=== PATIENT | female | born 2000 | race Caucasian/White ===

== ENCOUNTER 2020-12-21 17:22 | Emergency (ER) | payer OTHER, SELFPAY ==
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
[2020-12-21 17:43] VITALS: BP 137/76; PULSE 76; RESP 18; TEMP 36.9; O2SAT 98; BMI 32.3
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
--- NOTE | 2020-12-21 18:33 | PC.NURSE ---
SECURITY STATES THEY SPOKE TO [employer] AND THEY WILL NOT COME HER FOR INTERVIEW. PATIENT HAS TO GO TO [facility] DEPARTMENT TO FILE REPORT. ANGEL BANUELOS.
== END 2020-12-21 19:26 | disposition home or self-care (01) ==
PROVIDERS: Emergency Provider Emergency Medicine; PCP Internal Medicine
DX: S10.91XA Abrasion of unspecified part of neck, initial encounter (principal); Y04.8XXA Assault by other bodily force, initial encounter; Y93.9 Activity, unspecified; Y92.9 Unspecified place or not applicable; Y99.9 Unspecified external cause status
CPT/HCPCS: 70360; 99283; 99284

== ENCOUNTER 2020-12-22 11:16 | Emergency (ER) | payer OTHER, SELFPAY ==
[2020-12-22 11:32] VITALS: BP 119/71; PULSE 79; RESP 16; TEMP 37.2; O2SAT 98; BMI 32.3
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
== END 2020-12-22 13:10 | disposition home or self-care (01) ==
PROVIDERS: Emergency Provider Emergency Medicine; PCP Internal Medicine
DX: M54.2 Cervicalgia (principal)
CPT/HCPCS: 99283

== ENCOUNTER 2021-02-23 10:39 | Emergency (ER) | payer OTHER, SELFPAY ==
--- NOTE | 2021-02-23 | ECG_ITS ---
Test Reason : CHESTPAIN Blood Pressure : / mmHG Vent. Rate : 071 BPM Atrial Rate : 071 BPM P-R Int : 134 ms QRS Dur : 086 ms QT Int : 380 ms P-R-T Axes : 036 031 023 degrees QTc Int : 412 ms Normal sinus rhythm with sinus arrhythmia Normal ECG No previous ECGs available Referred By: Generic ED Physician Electronically Signed By:EVIE LERMA
--- NOTE | ~2021-02-23 | XR_ITS ---
EXAMINATION: XR CHEST CLINICAL INFORMATION: Chest pain. COMPARISON: None TECHNIQUE: Frontal view of the chest was obtained. FINDINGS: Both lungs are fairly well-expanded and clear. The heart size and pulmonary vascularity is normal. No gross bony abnormality seen. XR/XR chest 1V IMPRESSION: Unremarkable chest exam.
[2021-02-23 10:47] VITALS: BP 128/76; PULSE 95; RESP 16; TEMP 37.1; O2SAT 98; BMI 34.7
--- NOTE | 2021-02-23 11:20 | ED.CHESTPAIN ---
HPI - Chest Pain General Chief Complaint: Chest Pain Stated Complaint: chest pain Time Seen by Provider: 02/23/21 11:17 Source: patient Mode of arrival: ambulatory Limitations: no limitations History of Present Illness HPI narrative: 20-year-old female came in for evaluation of left-sided chest pain for 3 days. Pain is localized to the mid chest area and radiates to the left shoulder, pain described as dull aching pain, tender to touch, pain was described as intermittent comes and goes, pain is not exertional, nothing makes the pain worse or make it better, never had chest pain in the past, no recent travel or prolonged immobilization, no calf tenderness or swelling. No family history of PE/Chanelle high at young age. Related Data Previous Rx's Medication Instructions Recorded acetaminophen 500 mg tablet 500 mg PO Q6H PRN #20 tab 12/22/20 (Tylenol Extra Strength) cyclobenzaprine 5 mg tablet 5 mg PO Q8H PRN 5 Days #14 tab 12/22/20 lidocaine 5 % topical patch 1 patch TOPICAL DAILY PRN #30 ea 12/22/20 (Lidoderm) MDD remove after 12 hours naproxen 500 mg tablet 500 mg PO BID PRN 10 Days #20 tab 12/22/20 Allergies Allergy/AdvReac Type Severity Reaction Status Date / Time No Known Allergies Allergy Verified 12/21/20 18:30 Review of Systems Review of Systems: All other systems are reviewed and are negative Constitutional: Reports as per HPI and Reports no additional constitutional complaints Eyes: Reports as per HPI and Reports no additional eye complaints Reports system reviewed and no additional complaints, except as documented Cardiovascular: Reports as per HPI and Reports no additional cardiovascular complaints Respiratory: Reports as per HPI and Reports no additional respiratory complaints Gastrointestinal: Reports as per HPI and Reports no additional gastrointestinal complaints Genitourinary: Reports no additional female genitourinary complaints Musculoskeletal: Reports no additional musculoskeletal complaints Skin/Breast: Reports system reviewed and no additional complaints, except as docu Psychiatric: Reports no additional psychiatric complaints Endocrine: Reports no additional endocrine complaints Hematologic/Lymphatic: Reports no additional hematologic/lymphatic complaints Allergic/Immunologic: Reports no additional allergic/immunologic complaints Reports system reviewed and no additional complaints, except as documented and Reports Abnormal speech present PMFSH Past Medical History Medical History No known health problems Surgical History H/O dilation and curettage H/O knee surgery Social History Social History Advance Directives: No Advance Directives Information Provided: No Physical Exam Vital Signs: Vital Signs: Last Vital Signs Temp 97.7 F 02/23/21 13:22 Pulse 63 02/23/21 13:22 Resp 16 02/23/21 13:22 BP 115/54 L 02/23/21 13:22 Pulse Ox 99 02/23/21 13:22 Body Mass Index 34.7 Vital signs have been reviewed as appeared to be correct. Blood pressure normal. Heart rate normal. Respiration rate normal. Temperature normal. Oxygen saturation normal. Appearance: Alert. Oriented X3. No acute distress. Head: Normal external exam. Normocephalic. Atraumatic. No Lomax signs noted. No raccoon eyes noted Eyes: PERRLA. EOMI. Conjunctiva and sclera normal. Eyelids normal. ENT: TM's Normal. Pharynx normal. Uvula midline. Moist mucous membranes. No trismus noted. No drooling noted. No muffled voice noted. Neck: Normal inspection. Neck supple. FROM. No adenopathy. Thyroid Normal. No meningeal signs. No neck mass noted. CVS: Normal heart rate and rhythm. Heart sound normal. No murmurs noted. Pulses normal throughout. Respiratory: No respiratory distress. Painless inspiration. Breath sounds normal. No wheezes/rales/rhonchi noted. Chest nontender. No accessory muscle usage noted or decreased air movement noted. Abdomen: Soft and nontender. Bowel sounds normal in all 4 quadrants. No distention noted. No organomegaly noted. No visible injury noted. Back: No CVA tenderness. Full range of motion noted. Skin: Skin warm and dry. Normal skin color. Normal skin turgor. No rashes/lesions/lacerations noted. Extremities: No lower extremity edema. Extremities exhibit normal range of motion. Extremities nontender. Neuro: Oriented X 3. Cranial nerve exam: II-XII are grossly intact No motor deficit. No sensory deficit. Reflexes normal. Course Course Course Narrative: Assessment and plan. 20-year-old female came in for evaluation of chest pain, patient with HEART SCORE OF 0. LOW RISK FACTOR FOR PE with negative D-dimer MDM - Chest Pain Lab Data Attestation: I reviewed the patient's lab results. Result diagrams: 02/23/21 11:40 02/23/21 11:40 Labs: Lab Results 02/23/21 02/23/21 02/23/21 Range/Units 11:40 11:40 11:40 WBC 8.4 (4.8-10.8) X10*3/uL RBC 5.03 (4.20-5.50) X10*6/uL Hgb 13.9 (12.0-16.0) g/dl Hct 43.0 (37-47) % MCV 85.5 (80-98) fL MCH 27.6 (27.0-33.0) pg MCHC 32.3 (31.0-35.0) g/dl RDW 13.3 (11.0-16.0) % Plt Count 243 (160-400) X10*3/uL MPV 11.4 (9.4-12.3) fL Immature Gran % (Auto) 0.4 (0.0-0.4) % Neut % (Auto) 65.4 (45-73) % Lymph % (Auto) 23.8 (20-40) % Dougherty % (Auto) 6.7 (2-11) % Eos % (Auto) 2.9 (0-4) % Baso % (Auto) 0.8 (0-2) % Lymph # (Auto) 2.0 (1.2-4.9) X10*3/uL Dougherty # (Auto) 0.6 (0.1-1.2) X10*3/uL Eos # (Auto) 0.2 (0.0-0.4) X10*3/uL Baso # (Auto) 0.1 (0.0-0.2) X10*3/uL Abs Immat Gran (auto) 0.03 (0.00-0.03) X10*3/uL Absolute Neuts (auto) 5.5 (2.0-8.3) X10*3/uL Absolute Nucleated RBC 0.000 (0.0-0.012) X10*3/uL Nucleated RBC % (auto) 0.0 (0.0-0.2) /100WBC Smear Tech's Comments VERIFIED D-Dimer < 200 NG/ML Sodium 139 (135-145) mmol/L Potassium 4.7 (3.3-5.1) mmol/L Chloride 107 (96-108) mmol/L Carbon Dioxide 23 (22-29) mmol/L Anion Gap 14 (12-20) BUN 15 (9-16) mg/dL Creatinine 0.75 (0.5-1.4) mg/dL Estim Creat Clear Calc 138.5 Estimated GFR > 60 Random Glucose 91 (60-115) mg/dL Calcium 9.5 (8.4-10.2) mg/dL Troponin I High Sens (<3.5-17.0) ng/L Lipase 34 (8-78) U/L Urine Color Urine Appearance Urine pH (5.0-8.0) Ur Specific Epsom (1.005-1.025) Urine Protein (NEG-TRACE) MG/DL Urine Glucose (UA) (NEG) MG/DL Urine Ketones (NEG) MG/DL Urine Blood (NEG) Urine Nitrite (NEG) Ur Leukocyte Esterase (NEG) 02/23/21 02/23/21 Range/Units 11:40 11:47 WBC (4.8-10.8) X10*3/uL RBC (4.20-5.50) X10*6/uL Hgb (12.0-16.0) g/dl Hct (37-47) % MCV (80-98) fL MCH (27.0-33.0) pg MCHC (31.0-35.0) g/dl RDW (11.0-16.0) % Plt Count (160-400) X10*3/uL MPV (9.4-12.3) fL Immature Gran % (Auto) (0.0-0.4) % Neut % (Auto) (45-73) % Lymph % (Auto) (20-40) % Dougherty % (Auto) (2-11) % Eos % (Auto) (0-4) % Baso % (Auto) (0-2) % Lymph # (Auto) (1.2-4.9) X10*3/uL Dougherty # (Auto) (0.1-1.2) X10*3/uL Eos # (Auto) (0.0-0.4) X10*3/uL Baso # (Auto) (0.0-0.2) X10*3/uL Abs Immat Gran (auto) (0.00-0.03) X10*3/uL Absolute Neuts (auto) (2.0-8.3) X10*3/uL Absolute Nucleated RBC (0.0-0.012) X10*3/uL Nucleated RBC % (auto) (0.0-0.2) /100WBC Smear Tech's Comments D-Dimer NG/ML Sodium (135-145) mmol/L Potassium (3.3-5.1) mmol/L Chloride (96-108) mmol/L Carbon Dioxide (22-29) mmol/L Anion Gap (12-20) BUN (9-16) mg/dL Creatinine (0.5-1.4) mg/dL Estim Creat Clear Calc Estimated GFR Random Glucose (60-115) mg/dL Calcium (8.4-10.2) mg/dL Troponin I High Sens < 3.5 (<3.5-17.0) ng/L Lipase (8-78) U/L Urine Color YELLOW Urine Appearance CLEAR Urine pH 6.0 (5.0-8.0) Ur Specific Epsom 1.025 (1.005-1.025) Urine Protein NEG (NEG-TRACE) MG/DL Urine Glucose (UA) NEG (NEG) MG/DL Urine Ketones NEG (NEG) MG/DL Urine Blood NEG (NEG) Urine Nitrite NEG (NEG) Ur Leukocyte Esterase NEG (NEG) Imaging Data Chest x-ray: Radiologist's impression: Unremarkable chest x-ray. ECG Data ECG #1: Interpretation: Normal sinus rhythm at 71 beats per minutes, normal axis deviation, normal intervals, no ST-T changes. Discharge Plan Discharge Clinical Impression: Chest pain Patient Disposition: Home, Self-Care Instructions: Chest Pain (ED) Prescriptions: No Action acetaminophen [Tylenol Extra Strength] 500 mg tablet 500 mg PO Q6H PRN (Reason: pain or fever) Qty: 20 RF: 0 lidocaine [Lidoderm] 5 % adhesive patch,medicated 1 patch topical DAILY MDD remove after 12 hours PRN (Reason: pain) Qty: 30 RF: 0 naproxen 500 mg tablet 500 mg PO BID PRN (Reason: pain) 10 Days Qty: 20 RF: 0 cyclobenzaprine 5 mg tablet 5 mg PO Q8H PRN (Reason: pain (scale score 7-10)) 5 Days Qty: 14 RF: 0 Referrals: Micaela Carreon MD [Primary Care Provider] - 2 days
[2021-02-23 11:46] LABS: Eosinophils Absolute Auto 0.2 X10*3/uL (0.0-0.4); Imm Gran Abs Auto 0.03 X10*3/uL (0.00-0.03); Imm Gran Pct Auto 0.4 % (0.0-0.4); MANUAL DIFF FLAG SCAN; Mean Corpuscular Volume 85.5 fL (80-98); PLT CLUMP 1; SCAN SMEAR FLAG 1
[2021-02-23 11:48] VITALS: BP 125/66; PULSE 71; RESP 20; TEMP 37.3; O2SAT 98
[2021-02-23 11:48] LABS: Basophils Absolute Auto 0.1 X10*3/uL (0.0-0.2); Basophils Percent Auto 0.8 % (0-2); Eosinophils Percent Auto 2.9 % (0-4); Hemoglobin 13.9 g/dl (12.0-16.0); Lymphocytes Percent Auto 23.8 % (20-40); Mean Corpuscular HGB Conc 32.3 g/dl (31.0-35.0); Mean Corpuscular Hemoglobin 27.6 pg (27.0-33.0); Mean Platelet Volume 11.4 fL (9.4-12.3); Monocytes Absolute Auto 0.6 X10*3/uL (0.1-1.2); Monocytes Percent Auto 6.7 % (2-11); Neutrophils Absolute Auto 5.5 X10*3/uL (2.0-8.3); Neutrophils Percent Auto 65.4 % (45-73); Platelet Count 243 X10*3/uL (160-400); Red Blood Count 5.03 X10*6/uL (4.20-5.50); Red Cell Distribution Width 13.3 % (11.0-16.0); White Blood Count 8.4 X10*3/uL (4.8-10.8)
[2021-02-23 11:56] LABS: D Dimer < 200 NG/ML
[2021-02-23 11:59] LABS: Glucose Urine UA NEG (NEG); Leukocyte Esterase Urine NEG (NEG); Nitrite Urine NEG (NEG); Specific Gravity - Urine 1.025 (1.005-1.025); Urine Blood NEG (NEG); Urine Ketones NEG (NEG); Urine Protein NEG (NEG-TRACE)
[2021-02-23 12:00] LABS: Appearance Urine CLEAR; Color Urine YELLOW
[2021-02-23 12:26] LABS: SLIDE REVIEW VERIFIED
[2021-02-23 12:33] LABS: Anion Gap 14 (12-20); Blood Urea Nitrogen 15 mg/dL (9-16); Calcium 9.5 mg/dL (8.4-10.2); Carbon Dioxide 23 mmol/L (22-29); Chloride 107 mmol/L (96-108); Creatinine Clr Calc Pharmacy 138.5; Estimated Glomerular Filt Rate > 60; Glucose Random 91 mg/dL (60-115); Lipase 34 U/L (8-78); Potassium 4.7 mmol/L (3.3-5.1); Sodium 139 mmol/L (135-145)
[2021-02-23 12:38] LABS: Troponin-I High Sensitivity < 3.5 ng/L (<3.5-17.0)
[2021-02-23 13:22] VITALS: BP 115/54; PULSE 63; RESP 16; TEMP 36.5; O2SAT 99
[2021-02-23 15:56] VITALS: BP 124/60; PULSE 58; RESP 16; O2SAT 98
== END 2021-02-23 16:03 | disposition home or self-care (01) ==
PROVIDERS: Emergency Provider Emergency Medicine; PCP Internal Medicine
DX: R07.9 Chest pain, unspecified (principal); Z79.899 Other long term (current) drug therapy
CPT/HCPCS: 36415; 71045; 80048; 81003; 83690; 84484; 85025; 85379; 93005; 99283; 99284

== ENCOUNTER 2021-07-30 22:18 | Emergency (ER) | payer OTHER, SELFPAY ==
--- NOTE | ~2021-07-30 | CT_ITS ---
EXAMINATION: CT HEAD WITHOUT CONTRAST CLINICAL INFORMATION: Headache for one month COMPARISON: 09/25/2016 TECHNIQUE: Contiguous axial imaging was performed from the skull base to vertex without intravenous contrast. This CT examination was performed using dose optimization techniques as appropriate, variously including the following: * Automated exposure control * Adjustment of mA and/or kV according to patient size (this includes techniques or standardized protocols for targeted exams where dose is matched to indication/reason for exam; i.e. extremities or head) Use of iterative reconstruction technique DLP: 717 mGy-cm. FINDINGS: There is no evidence of acute intracranial hemorrhage or territorial infarction. No abnormal mass effect or midline shift is seen. Denis to white matter differentiation is well preserved. No extra-axial fluid collections are identified. No hydrocephalus. No significant volume loss. There is no abnormal attenuation within the brain parenchyma. The osseous structures and soft tissues are normal. The mastoid air cells and visualized portions of the paranasal sinuses are well aerated. CT/CT head/brain wo con IMPRESSION: No acute intracranial pathology.
[2021-07-30 22:19] VITALS: BP 121/71; PULSE 76; RESP 16; TEMP 36.4; O2SAT 97; BMI 35.5
--- NOTE | 2021-07-30 22:30 | ED_ITS ---
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 MD elicited complaint: other (headaches, palpitations, upper abdominal disco mfort) Onset (ago): month(s) (1) Timing: gradual onset and intermittent Severity: moderate Description: lightheadedness Context: at rest History of similar symptoms: Yes (had chest pain in the past told it was anxiety) Exacerbating factors: nothing Relieving factors: nothing Associated symptoms: weakness and palpatations Related Data Previous Rx's Medication Instructions Recorded acetaminophen 500 mg tablet 500 mg PO Q6H PRN #20 tab 12/22/20 (Tylenol Extra Strength) cyclobenzaprine 5 mg tablet 5 mg PO Q8H PRN 5 Days #14 tab 12/22/20 lidocaine 5 % topical patch 1 patch TOPICAL DAILY PRN #30 ea 12/22/20 (Lidoderm) MDD remove after 12 hours naproxen 500 mg tablet 500 mg PO BID PRN 10 Days #20 tab 12/22/20 cyclobenzaprine 10 mg tablet 10 mg PO TID PRN #14 tab 07/31/21 ondansetron 4 mg disintegrating 4 mg PO Q8H PRN #20 tab 07/31/21 tablet Allergies Allergy/AdvReac Type Severity Reaction Status Date / Time No Known Allergies Allergy Verified 07/30/21 22:27 Review of Systems Verdana 4l Review of Systems: Verdana 4d Verdana 4d Constitutional : No Weight loss, No Fever, No Chills, pos Fatigue, pos Malaise ENT/Mouth : No sore throat, No Rhinorrhea Eyes: No Eye Pain, No Swelling, No Redness Cardiovascular : No Chest Pain, No SOB, No Dyspnea on Exertion, No OrthopneaOrthopnea, No Edema, pos Palpitations Respiratory : No Cough, No Sputum, No Wheezing Gastrointestinal : pos Nausea, No Vomiting, No Diarrhea, No Constipation, pos abdominal Pain, No Hematochezia, No Melena Genitourinary : No Dysuria, No Urinary Frequency, No Hematuria, Musculoskeletal : No joint pain, No Myalgias, No Joint Swelling Skin : No Skin Lesions, No rash Neuro : No Weakness, No Numbness, No Dizziness, pos Headache Psych : No Anxiety/Panic, No Depression Heme/Lymph: No Bruising, No Bleeding,No Lymphadenopathy Endocrine : No Polyuria, No Polydipsia All other systems reviewed and are negative [facility] Past Medical History Medical History No known health problems PCOS (polycystic ovarian syndrome) Surgical History H/O dilation and curettage H/O knee surgery Social History Social History (Updated 07/30/21 @ 22:49 by Katherine Pascal DO) Frequency of e-Cigarette/Vaping Use: occasional vaping Advance Directives: No Advance Directives Information Provided: Yes Physical Exam Verdana 4l Vital Signs: Verdana 4d Verdana 4d Vital Signs: Verdana 4d Verdana 4Bd Last Vital Signs Verdana 4d Pet Handler New 4d Pet Handler New 4d Temp 97.6 F 07/30/21 22:19 Pet Handler New 4d Pulse 69 07/31/21 00:42 Pet Handler New 4d Resp 17 07/31/21 00:42 BP 118/65 07/31/21 00:42 Pulse Ox 99 07/31/21 00:42 BMI result Body Mass Index 35.5 Appearance: Alert. Oriented X3. No acute distress. Eyes: Pupils equal, round and reactive to light. ENT: Pharynx normal. Neck: Normal inspection. Neck supple. CVS: Normal heart rate and rhythm. Pulses normal. Respiratory: No respiratory distress. Breath sounds normal. Abdomen: Soft and non-tender. Skin: Skin warm and dry. Normal skin color. Normal skin turgor. Extremities: No lower extremity edema. No calf ttp Neuro: Oriented X 3. No motor deficit. No sensory deficit. Course Course Course Narrative: negative workup stable for DC MDM - Dizziness MDM Narrative Medical decision making narrative: 20 yo female with hx of anxiety and PCOS not on OCPs comes in with 1 month of palpitations, headaches, some upper abdominal discomfort - at this time could be related to stress from school will need labs, TSH, EKG, CT head for mass, PO medications for likely tension headache. Doubt ACS/PE. Dispo per results and findings. Lab Data Result diagrams: 07/30/21 22:58 07/30/21 22:58 Labs: Lab Results 07/30/21 07/30/21 07/30/21 Range/Units 22:53 22:58 22:58 WBC 9.8 (4.8-10.8) X10*3/uL RBC 4.99 (4.20-5.50) X10*6/uL Hgb 13.7 (12.0-16.0) g/dl Hct 42.6 (37.0-47.0) % MCV 85.4 (80.0-98.0) fL MCH 27.5 (27.0-33.0) pg MCHC 32.2 (31.0-35.0) g/dl RDW 12.6 (11.0-16.0) % Plt Count 271 (160-400) X10*3/uL MPV 11.7 (9.4-12.3) fL Immature Gran % (Auto) 0.3 (0.0-0.4) % Neut % (Auto) 60.8 (45-73) % Lymph % (Auto) 27.0 (20-40) % [place] % (Auto) 8.3 (2-11) % Eos % (Auto) 3.0 (0-4) % Baso % (Auto) 0.6 (0-2) % Lymph # (Auto) 2.6 (1.2-4.9) X10*3/uL [place] # (Auto) 0.8 (0.1-1.2) X10*3/uL Eos # (Auto) 0.3 (0.0-0.4) X10*3/uL Baso # (Auto) 0.1 (0.0-0.2) X10*3/uL Abs Immat Gran (auto) 0.03 (0.00-0.03) X10*3/uL Absolute Neuts (auto) 5.9 (2.0-8.3) x10*3/uL Absolute Nucleated RBC 0.000 (0.0-0.012) X10*3/uL Nucleated RBC % (auto) 0.0 (0.0-0.2) /100WBC Sodium 139 (135-145) mmol/L Potassium 4.4 (3.3-5.1) mmol/L Chloride 105 (96-108) mmol/L Carbon Dioxide 24 (22-29) mmol/L Anion Gap 14 (12-20) BUN 17 H (9-16) mg/dL Creatinine 0.79 (0.5-1.4) mg/dL Estim Creat Clear Calc 133.1 Estimated GFR > 60 Random Glucose 84 (60-115) mg/dL Calcium 9.8 (8.4-10.2) mg/dL Magnesium 2.0 (1.6-2.6) mg/dL Total Bilirubin 0.6 (0.0-1.0) mg/dL Direct Bilirubin 0.2 (0.0-0.5) mg/dL AST 21 (5-31) U/L ALT 23 (0-31) U/L Alkaline Phosphatase 83 (39-117) U/L Total Protein 7.5 (6.5-8.0) g/dL Albumin 4.2 (3.5-5.0) g/dL Lipase 38 (8-78) U/L TSH 1.77 (0.32-4.0) uIU/mL Urine Color Urine Appearance Urine pH (5.0-8.0) Ur Specific [place] (1.005-1.025) Urine Protein (NEG-TRACE) MG/DL Urine Glucose (UA) (NEG) MG/DL Urine Ketones (NEG) MG/DL Urine Blood (NEG) Urine Nitrite (NEG) Ur Leukocyte Esterase (NEG) Urine Test (NEGATIVE) COVID-19 (LEROY) Negative (Negative) COVID-19 Clin Com See Note 07/30/21 07/30/21 Range/Units 23:07 23:07 WBC (4.8-10.8) X10*3/uL RBC (4.20-5.50) X10*6/uL Hgb (12.0-16.0) g/dl Hct (37.0-47.0) % MCV (80.0-98.0) fL MCH (27.0-33.0) pg MCHC (31.0-35.0) g/dl RDW (11.0-16.0) % Plt Count (160-400) X10*3/uL MPV (9.4-12.3) fL Immature Gran % (Auto) (0.0-0.4) % Neut % (Auto) (45-73) % Lymph % (Auto) (20-40) % [place] % (Auto) (2-11) % Eos % (Auto) (0-4) % Baso % (Auto) (0-2) % Lymph # (Auto) (1.2-4.9) X10*3/uL [place] # (Auto) (0.1-1.2) X10*3/uL Eos # (Auto) (0.0-0.4) X10*3/uL Baso # (Auto) (0.0-0.2) X10*3/uL Abs Immat Gran (auto) (0.00-0.03) X10*3/uL Absolute Neuts (auto) (2.0-8.3) x10*3/uL Absolute Nucleated RBC (0.0-0.012) X10*3/uL Nucleated RBC % (auto) (0.0-0.2) /100WBC Sodium (135-145) mmol/L Potassium (3.3-5.1) mmol/L Chloride (96-108) mmol/L Carbon Dioxide (22-29) mmol/L Anion Gap (12-20) BUN (9-16) mg/dL Creatinine (0.5-1.4) mg/dL Estim Creat Clear Calc Estimated GFR Random Glucose (60-115) mg/dL Calcium (8.4-10.2) mg/dL Magnesium (1.6-2.6) mg/dL Total Bilirubin (0.0-1.0) mg/dL Direct Bilirubin (0.0-0.5) mg/dL AST (5-31) U/L ALT (0-31) U/L Alkaline Phosphatase (39-117) U/L Total Protein (6.5-8.0) g/dL Albumin (3.5-5.0) g/dL Lipase (8-78) U/L TSH (0.32-4.0) uIU/mL Urine Color YELLOW Urine Appearance HAZY Urine pH 6.0 (5.0-8.0) Ur Specific [place] >= 1.030 H (1.005-1.025) Urine Protein NEG (NEG-TRACE) MG/DL Urine Glucose (UA) NEG (NEG) MG/DL Urine Ketones NEG (NEG) MG/DL Urine Blood NEG (NEG) Urine Nitrite NEG (NEG) Ur Leukocyte Esterase NEG (NEG) Urine Test NEGATIVE (NEGATIVE) COVID-19 (LEROY) (Negative) COVID-19 Clin Com ECG Data Attestation: I personally reviewed and interpreted this ECG as follows: ECG interpretation date: 07/30/21 ECG interpretation time: 22:59 Interpretation: Rate: 74 Rhythm: NSR Homer: mpr,a; Normal P waves. Normal GYPSY. Normal QRS complex. ST T wave : artifact noted, no SKYE, inverted III qTC: normal prior studies: no acute ischemia The study has been interpreted contemporaneously by me. . Discharge Plan Discharge Clinical Impression: Heart palpitations Chronic tension headaches Qualifiers: Intractability: not intractable Qualified Code(s): G44.229 - Chronic tension- type headache, not intractable Patient Disposition: Home, Self-Care Instructions: Heart Palpitations (DC), Tension Headache (ED) Additional Instructions: return to ED for any worsening symptoms or concerns Prescriptions: New cyclobenzaprine 10 mg tablet 10 mg PO TID PRN (Reason: muscle spasm) Qty: 14 0RF ondansetron 4 mg tablet,disintegrating 4 mg PO Q8H PRN (Reason: nausea and vomiting) Qty: 20 0RF No Action acetaminophen [Tylenol Extra Strength] 500 mg tablet 500 mg PO Q6H PRN (Reason: pain or fever) Qty: 20 0RF lidocaine [Lidoderm] 5 % adhesive patch,medicated 1 patch topical DAILY MDD remove after 12 hours PRN (Reason: pain) Qty: 30 0RF Rx Instructions: leave on most painful area for up to 12 hrs naproxen 500 mg tablet 500 mg PO BID PRN (Reason: pain) 10 Days Qty: 20 0RF cyclobenzaprine 5 mg tablet 5 mg PO Q8H PRN (Reason: pain (scale score 7-10)) 5 Days Qty: 14 0RF Referrals: Micaela Carreon MD [Primary Care Provider] - 3 days (if not better) Stand Alone Forms: Work/School Release Interventions: ED Discharge Assessment Last Done: 07/31/21 00:51 Discharge Date/Time: 07/31/21 00:52
--- NOTE | 2021-07-30 22:39 | ECG_ITS ---
Test Reason : DIZZINESS Blood Pressure : / mmHG Vent. Rate : 074 BPM Atrial Rate : 074 BPM P-R Int : 132 ms QRS Dur : 076 ms QT Int : 372 ms P-R-T Axes : 026 014 013 degrees QTc Int : 412 ms Normal sinus rhythm Normal ECG When compared with ECG of 23-FEB-2021 10:53, No significant change was found Referred By: Katherine Pascal Electronically Signed By:
[2021-07-30] MEDS: Butalb/Acetamin/Caff 50/325/40 TABLET 1 TAB PO (22:59)
[2021-07-30] MEDS: Ondansetron ODT 4 MG TAB.RAPDIS TRANSLINGU (22:59)
[2021-07-30 23:04] LABS: MANUAL DIFF FLAG NO
[2021-07-30 23:05] LABS: Basophils Absolute Auto 0.1 X10*3/uL (0.0-0.2); Basophils Percent Auto 0.6 % (0-2); Eosinophils Absolute Auto 0.3 X10*3/uL (0.0-0.4); Hematocrit 42.6 % (37.0-47.0); Hemoglobin 13.7 g/dl (12.0-16.0); Imm Gran Abs Auto 0.03 X10*3/uL (0.00-0.03); Imm Gran Pct Auto 0.3 % (0.0-0.4); Lymphocytes Absolute Auto 2.6 X10*3/uL (1.2-4.9); Mean Corpuscular HGB Conc 32.2 g/dl (31.0-35.0); Mean Corpuscular Hemoglobin 27.5 pg (27.0-33.0); Mean Corpuscular Volume 85.4 fL (80.0-98.0); Mean Platelet Volume 11.7 fL (9.4-12.3); Monocytes Absolute Auto 0.8 X10*3/uL (0.1-1.2); Monocytes Percent Auto 8.3 % (2-11); Neutrophils Absolute Auto 5.9 x10*3/uL (2.0-8.3); Neutrophils Percent Auto 60.8 % (45-73); Platelet Count 271 X10*3/uL (160-400); Red Blood Count 4.99 X10*6/uL (4.20-5.50); Red Cell Distribution Width 12.6 % (11.0-16.0); White Blood Count 9.8 X10*3/uL (4.8-10.8)
[2021-07-30 23:19] LABS: COVID-19 Test Negative (Negative)
[2021-07-30 23:20] LABS: Alanine Aminotransferase 23 U/L (0-31); Albumin Level 4.2 g/dL (3.5-5.0); Alkaline Phosphatase 83 U/L (39-117); Anion Gap 14 (12-20); Aspartate Amino Transferase 21 U/L (5-31); Bilirubin Direct 0.2 mg/dL (0.0-0.5); Bilirubin Total 0.6 mg/dL (0.0-1.0); Blood Urea Nitrogen 17 mg/dL (9-16); Calcium 9.8 mg/dL (8.4-10.2); Carbon Dioxide 24 mmol/L (22-29); Chloride 105 mmol/L (96-108); Creatinine Clr Calc Pharmacy 133.1; Estimated Glomerular Filt Rate > 60; Glucose Random 84 mg/dL (60-115); Lipase 38 U/L (8-78); Potassium 4.4 mmol/L (3.3-5.1); Sodium 139 mmol/L (135-145); Total Protein 7.5 g/dL (6.5-8.0)
[2021-07-30 23:40] LABS: TSH reflex Free T4 1.77 uIU/mL (0.32-4.0)
[2021-07-31] LABS: Appearance Urine HAZY; Color Urine YELLOW; Glucose Urine UA NEG (NEG); Leukocyte Esterase Urine NEG (NEG); Nitrite Urine NEG (NEG); Specific Gravity - Urine >= 1.030 (1.005-1.025); Urine Blood NEG (NEG); Urine Ketones NEG (NEG); Urine Protein NEG (NEG-TRACE)
[2021-07-31 00:03] LABS: UPreg QC Valid YES; Urine Pregnancy NEGATIVE (NEGATIVE)
[2021-07-31 00:42] VITALS: BP 118/65; PULSE 69; RESP 17; O2SAT 99
== END 2021-07-31 00:52 | disposition home or self-care (01) ==
PROVIDERS: Emergency Provider Emergency Medicine; PCP Internal Medicine
DX: R00.2 Palpitations (principal); G44.229 Chronic tension-type headache, not intractable; Z20.822 Contact with and (suspected) exposure to COVID-19
CPT/HCPCS: 70450; 80048; 80076; 81003; 81025; 83690; 83735; 84443; 85025; 87635; 93005; 99284

== ENCOUNTER 2021-08-24 19:12 | Emergency (ER) | payer OTHER, SELFPAY ==
[2021-08-24 19:29] VITALS: BP 117/78; PULSE 81; RESP 18; TEMP 36.5; O2SAT 98; BMI 35.5
[2021-08-24 19:45] LABS: MANUAL DIFF FLAG NO
[2021-08-24 19:47] LABS: Basophils Absolute Auto 0.1 X10*3/uL (0.0-0.2); Basophils Percent Auto 0.7 % (0-2); Eosinophils Absolute Auto 0.2 X10*3/uL (0.0-0.4); Eosinophils Percent Auto 2.1 % (0-4); Hemoglobin 13.8 g/dl (12.0-16.0); Imm Gran Abs Auto 0.02 X10*3/uL (0.00-0.03); Imm Gran Pct Auto 0.2 % (0.0-0.4); Lymphocytes Absolute Auto 2.2 X10*3/uL (1.2-4.9); Lymphocytes Percent Auto 24.1 % (20-40); Mean Corpuscular HGB Conc 32.9 g/dl (31.0-35.0); Mean Corpuscular Hemoglobin 27.9 pg (27.0-33.0); Monocytes Absolute Auto 0.7 X10*3/uL (0.1-1.2); Monocytes Percent Auto 7.5 % (2-11); Neutrophils Absolute Auto 5.8 x10*3/uL (2.0-8.3); Neutrophils Percent Auto 65.4 % (45-73); Platelet Count 278 X10*3/uL (160-400); Red Blood Count 4.94 X10*6/uL (4.20-5.50); Red Cell Distribution Width 12.6 % (11.0-16.0); White Blood Count 8.9 X10*3/uL (4.8-10.8)
[2021-08-24 20:06] LABS: Anion Gap 16 (12-20); Blood Urea Nitrogen 16 mg/dL (9-16); Carbon Dioxide 27 mmol/L (22-29); Chloride 104 mmol/L (96-108); Creatinine Clr Calc Pharmacy 134.8; Estimated Glomerular Filt Rate > 60; Glucose Random 89 mg/dL (60-115); Potassium 4.5 mmol/L (3.3-5.1); Sodium 142 mmol/L (135-145)
[2021-08-24 20:17] LABS: Appearance Urine CLEAR; Color Urine YELLOW; Glucose Urine UA NEG (NEG); Leukocyte Esterase Urine NEG (NEG); Nitrite Urine NEG (NEG); PH 6.5 (5.0-8.0); Specific Gravity - Urine 1.025 (1.005-1.025); Urine Blood NEG (NEG); Urine Ketones NEG (NEG); Urine Protein NEG (NEG-TRACE)
--- NOTE | 2021-08-24 20:39 | ED.GENADULT ---
HPI - General Adult General Chief complaint: General Medical Stated complaint: blood in stool Time Seen by Provider: 08/24/21 20:38 Source: patient Mode of arrival: ambulatory Limitations: no limitations History of Present Illness HPI narrative: 20-year-old female no known medical history presents to the emergency department with complaints of abdominal discomfort, and bright red blood in the toilet and on the toilet paper since 5:30 today. She says she no longer has the abdominal pain, however she is very concerned about the blood she saw in the toilet and on her toilet paper. She says this has happened before. She reports alternating diarrhea and constipation. History of hemorrhoids. Never had a colonoscopy. She denies fevers, chills, abdominal pain, nausea, vomiting, shortness of breath chest pain, headache, dizziness weakness. Onset (ago): hour(s) (4) Relieving factors: none Exacerbating factors: none Treatments prior to arrival: none Related Data Previous Rx's Medication Instructions Recorded acetaminophen 500 mg tablet 500 mg PO Q6H PRN #20 tab 12/22/20 (Tylenol Extra Strength) cyclobenzaprine 5 mg tablet 5 mg PO Q8H PRN 5 Days #14 tab 12/22/20 lidocaine 5 % topical patch 1 patch TOPICAL DAILY PRN #30 ea 12/22/20 (Lidoderm) MDD remove after 12 hours naproxen 500 mg tablet 500 mg PO BID PRN 10 Days #20 tab 12/22/20 cyclobenzaprine 10 mg tablet 10 mg PO TID PRN #14 tab 07/31/21 ondansetron 4 mg disintegrating 4 mg PO Q8H PRN #20 tab 07/31/21 tablet pramoxine 1 % topical foam 1 appl [place] BID #15 g 08/24/21 (Proctofoam) Allergies Allergy/AdvReac Type Severity Reaction Status Date / Time No Known Allergies Allergy Verified 08/24/21 19:29 Review of Systems Review of Systems: Constitutional : No Weight loss, No Fever, No Chills, No Fatigue, No Malaise ENT/Mouth : No sore throat, No Rhinorrhea Eyes: No Eye Pain, No Swelling, No Redness Cardiovascular : No Chest Pain, No SOB, No Dyspnea on Exertion, No Orthopnea, No Edema, No Palpitations Respiratory : No Cough, No Sputum, No Wheezing Gastrointestinal : No Nausea, No Vomiting, No Diarrhea, No Constipation, No abdominal Pain, No Hematochezia, No Melena Genitourinary : No Dysuria, No Urinary Frequency, No Hematuria, + rectal bleeding Musculoskeletal : No joint pain, No Myalgias, No Joint Swelling Skin : No Skin Lesions, No rash Neuro : No Weakness, No Numbness, No Dizziness, No Headache Psych : No Anxiety/Panic, No Depression All other systems reviewed and are negative Yes all other systems are reviewed and are negative [facility] Past Medical History Attestation statement: The following information was validated with the patient. Source: old records reviewed and nursing notes reviewed Medical History No known health problems PCOS (polycystic ovarian syndrome) Surgical History H/O dilation and curettage H/O knee surgery Social History Social History Advance Directives: No Advance Directives Information Provided: No Patient : No Physical Exam ED Vital Signs: Vital Signs - 24 hr 08/24/21 19:29 Temperature 97.7 F Pulse Rate 81 Respiratory Rate 18 Blood Pressure 117/78 Pulse Oximetry 98 BMI result Body Mass Index 35.5 VSS Appearance: Alert.? Oriented X3.? No acute distress.? Head: Normocephalic, atraumatic, no step-offs or deformities Eyes: Pupils equal, round and reactive to light.? ENT: Pharynx normal.? Neck: Normal inspection.? Neck supple.? CVS: Normal heart rate and rhythm.? Pulses normal.? Respiratory: No respiratory distress.? Breath sounds normal.? Abdomen: Soft and nontender.? Skin: Skin warm and dry.? Normal skin color.? Normal skin turgor.? Sensative exam: + external non strangulated hemorrhoids Extremities: No lower extremity edema.? No calf ttp. 5/5 strength to bilateral upper and lower extremities Back: No midline tenderness, no C-spine tenderness, full range of motion, no CVA tenderness bilaterally Neuro: Oriented X 3.? No motor deficit.? No sensory deficit. CN 2-12 intact Course Reevaluation(s) Reevaluation #1: CBC within normal limits, H&H stable. Chemistry with no acute electrolyte abnormalities. OBS negative. Urine clean. Urine negative. Patient is not having tenderness to palpation to abdomen no need for CT at this time. Time: 21:21 Reevaluation #2: I will have patient follow-up with GI outpatient. Advised her to return with new or worsening symptoms. Comfortable discharge home she will be sent home on Proctofoam. Worrisome signs and symptoms outlined on her discharge. Time: 21:54 Medical Decision Making [facility] Narrative Medical decision making narrative: 2059 20 yo f present with one episode of blood in stool and in toilet at 5:30 today, tells me she has abdominal discomfort daily. Not reporting abdominal pain now. PE significant for an external hemorrhoid, nonthrombosed, non incarcerated, non bleeding. Internal exam without lumps or masses, no internal hemorrhoids. Chaperoned by Miguelina. Plan- obs, labs, urine No abdominal tenderness no need for scan at this time. Very low suspicion for IBS. Medical Records Medical records reviewed: Yes I reviewed the patient's medical records. Lab Data Lab results reviewed: Yes I reviewed the patient's lab results. Result diagrams: 08/24/21 19:41 08/24/21 19:41 Labs: Lab Results 08/24/21 08/24/21 08/24/21 Range/Units 19:41 19:41 20:11 WBC 8.9 (4.8-10.8) X10*3/uL RBC 4.94 (4.20-5.50) X10*6/uL Hgb 13.8 (12.0-16.0) g/dl Hct 42.0 (37.0-47.0) % MCV 85.0 (80.0-98.0) fL MCH 27.9 (27.0-33.0) pg MCHC 32.9 (31.0-35.0) g/dl RDW 12.6 (11.0-16.0) % Plt Count 278 (160-400) X10*3/uL MPV 11.0 (9.4-12.3) fL Immature Gran % (Auto) 0.2 (0.0-0.4) % Neut % (Auto) 65.4 (45-73) % Lymph % (Auto) 24.1 (20-40) % [place] % (Auto) 7.5 (2-11) % Eos % (Auto) 2.1 (0-4) % Baso % (Auto) 0.7 (0-2) % Lymph # (Auto) 2.2 (1.2-4.9) X10*3/uL [place] # (Auto) 0.7 (0.1-1.2) X10*3/uL Eos # (Auto) 0.2 (0.0-0.4) X10*3/uL Baso # (Auto) 0.1 (0.0-0.2) X10*3/uL Abs Immat Gran (auto) 0.02 (0.00-0.03) X10*3/uL Absolute Neuts (auto) 5.8 (2.0-8.3) x10*3/uL Absolute Nucleated RBC 0.000 (0.0-0.012) X10*3/uL Nucleated RBC % (auto) 0.0 (0.0-0.2) /100WBC Sodium 142 (135-145) mmol/L Potassium 4.5 (3.3-5.1) mmol/L Chloride 104 (96-108) mmol/L Carbon Dioxide 27 (22-29) mmol/L Anion Gap 16 (12-20) BUN 16 (9-16) mg/dL Creatinine 0.78 (0.5-1.4) mg/dL Estim Creat Clear Calc 134.8 Estimated GFR > 60 Random Glucose 89 (60-115) mg/dL Calcium 10.0 (8.4-10.2) mg/dL Urine Color YELLOW Urine Appearance CLEAR Urine pH 6.5 (5.0-8.0) Ur Specific [place] 1.025 (1.005-1.025) Urine Protein NEG (NEG-TRACE) MG/DL Urine Glucose (UA) NEG (NEG) MG/DL Urine Ketones NEG (NEG) MG/DL Urine Blood NEG (NEG) Urine Nitrite NEG (NEG) Ur Leukocyte Esterase NEG (NEG) Urine Test (NEGATIVE) Stool Occult Blood (NEGATIVE) 08/24/21 08/24/21 Range/Units 20:11 21:14 WBC (4.8-10.8) X10*3/uL RBC (4.20-5.50) X10*6/uL Hgb (12.0-16.0) g/dl Hct (37.0-47.0) % MCV (80.0-98.0) fL MCH (27.0-33.0) pg MCHC (31.0-35.0) g/dl RDW (11.0-16.0) % Plt Count (160-400) X10*3/uL MPV (9.4-12.3) fL Immature Gran % (Auto) (0.0-0.4) % Neut % (Auto) (45-73) % Lymph % (Auto) (20-40) % [place] % (Auto) (2-11) % Eos % (Auto) (0-4) % Baso % (Auto) (0-2) % Lymph # (Auto) (1.2-4.9) X10*3/uL [place] # (Auto) (0.1-1.2) X10*3/uL Eos # (Auto) (0.0-0.4) X10*3/uL Baso # (Auto) (0.0-0.2) X10*3/uL Abs Immat Gran (auto) (0.00-0.03) X10*3/uL Absolute Neuts (auto) (2.0-8.3) x10*3/uL Absolute Nucleated RBC (0.0-0.012) X10*3/uL Nucleated RBC % (auto) (0.0-0.2) /100WBC Sodium (135-145) mmol/L Potassium (3.3-5.1) mmol/L Chloride (96-108) mmol/L Carbon Dioxide (22-29) mmol/L Anion Gap (12-20) BUN (9-16) mg/dL Creatinine (0.5-1.4) mg/dL Estim Creat Clear Calc Estimated GFR Random Glucose (60-115) mg/dL Calcium (8.4-10.2) mg/dL Urine Color Urine Appearance Urine pH (5.0-8.0) Ur Specific [place] (1.005-1.025) Urine Protein (NEG-TRACE) MG/DL Urine Glucose (UA) (NEG) MG/DL Urine Ketones (NEG) MG/DL Urine Blood (NEG) Urine Nitrite (NEG) Ur Leukocyte Esterase (NEG) Urine Test NEGATIVE (NEGATIVE) Stool Occult Blood NEGATIVE (NEGATIVE) Critical Care Time Critical Care Time Critical Care Time: No Discharge Plan Discharge Clinical Impression: Rectal bleed, Hemorrhoid Patient Disposition: Home, Self-Care Instructions: Hemorrhoids (ED), Rectal Bleeding (ED), [place] (DC) Additional Instructions: Take your medications as prescribed. If you were prescribed antibiotics today, it is important that you take your medication to their entirety, do not skip any doses, do not finish them early. Follow-up with your primary care provider this week. Follow up with GI this week. Return to the emergency department with new or worsening symptoms. Such as fevers, chills, nausea vomiting, chest pain, shortness of breath, headache, dizziness, vision changes, abdominal pain, rectal bleeding, vaginal bleeding In case of emergency call 911 Prescriptions: New pramoxine [Proctofoam] 1 % foam 1 appl [place] BID Qty: 15 0RF No Action acetaminophen [Tylenol Extra Strength] 500 mg tablet 500 mg PO Q6H PRN (Reason: pain or fever) Qty: 20 0RF lidocaine [Lidoderm] 5 % adhesive patch,medicated 1 patch topical DAILY MDD remove after 12 hours PRN (Reason: pain) Qty: 30 0RF Rx Instructions: leave on most painful area for up to 12 hrs naproxen 500 mg tablet 500 mg PO BID PRN (Reason: pain) 10 Days Qty: 20 0RF cyclobenzaprine 5 mg tablet 5 mg PO Q8H PRN (Reason: pain (scale score 7-10)) 5 Days Qty: 14 0RF cyclobenzaprine 10 mg tablet 10 mg PO TID PRN (Reason: muscle spasm) Qty: 14 0RF ondansetron 4 mg tablet,disintegrating 4 mg PO Q8H PRN (Reason: nausea and vomiting) Qty: 20 0RF Referrals: Micaela Carreon MD [Primary Care Provider] - 2 days Kwabena Garcia [Physician] - 2 days Stand Alone Forms: Work/School Release
--- NOTE | 2021-08-24 20:44 | PC.NURSE ---
RECTAL EXAM PERFORMED BY ANGEL DOHERTY WITH PCT WITNESS.
[2021-08-24 21:08] LABS: UPreg QC Valid YES; Urine Pregnancy NEGATIVE (NEGATIVE)
[2021-08-24 21:20] LABS: OBS Int Ctl Valid YES; OBS1 NEGATIVE (NEGATIVE)
== END 2021-08-24 22:20 | disposition home or self-care (01) ==
PROVIDERS: Physician Assistant; Emergency Provider Internal Medicine; PCP Internal Medicine
DX: K64.4 Residual hemorrhoidal skin tags (principal); K62.5 Hemorrhage of anus and rectum
CPT/HCPCS: 36415; 80048; 81003; 81025; 82272; 85025; 99283; 99284

== ENCOUNTER 2021-12-22 15:53 | Emergency (ER) | payer OTHER, SELFPAY ==
--- NOTE | 2021-12-22 | ECG_ITS ---
Test Reason : cp Blood Pressure : / mmHG Vent. Rate : 086 BPM Atrial Rate : 086 BPM P-R Int : 132 ms QRS Dur : 080 ms QT Int : 370 ms P-R-T Axes : 026 015 009 degrees QTc Int : 442 ms Normal sinus rhythm Normal ECG When compared with ECG of 30-JUL-2021 22:52, No significant change was found Referred By: Generic ED Physician Electronically Signed By:MATT AMAYA MD
--- NOTE | ~2021-12-22 | XR_ITS ---
EXAMINATION: XR CHEST CLINICAL INFORMATION: Chest pain COMPARISON: X-ray 02/23/2021 TECHNIQUE: Frontal view of the chest was obtained. FINDINGS: The lungs are well-expanded. There is no focal consolidation, edema or effusion. No pneumothorax. The cardiomediastinal silhouette is within normal limits. No acute osseous abnormality. XR/XR chest 1V IMPRESSION: No acute pulmonary disease.
[2021-12-22 16:08] VITALS: BP 150/100; PULSE 79; RESP 16; TEMP 36.3; O2SAT 98; BMI 37.9
[2021-12-22 16:53] VITALS: BP 140/80; PULSE 77; RESP 16; TEMP 36.7; O2SAT 98
[2021-12-22 17:17] VITALS: BP 125/76; PULSE 72; RESP 21; O2SAT 98
[2021-12-22 17:20] LABS: D Dimer High Sensitivity < 150 NG/ML
[2021-12-22 17:20] LABS: Alanine Aminotransferase 62 U/L (0-31); Albumin Level 4.4 g/dL (3.5-5.0); Alkaline Phosphatase 93 U/L (39-117); Anion Gap 13 (12-20); Aspartate Amino Transferase 30 U/L (5-31); Bilirubin Total 0.8 mg/dL (0.0-1.0); Blood Urea Nitrogen 14 mg/dL (9-16); Calcium 9.6 mg/dL (8.4-10.2); Carbon Dioxide 27 mmol/L (22-29); Chloride 105 mmol/L (96-108); Estimated Glomerular Filt Rate > 60; Glucose Random 96 mg/dL (60-115); Potassium 4.7 mmol/L (3.3-5.1); Sodium 140 mmol/L (135-145); Total Protein 7.7 g/dL (6.5-8.0)
[2021-12-22 17:25] VITALS: PULSE 77
[2021-12-22 17:26] LABS: Troponin-I High Sensitivity < 3.5 ng/L (<3.5-17.0)
--- NOTE | 2021-12-22 17:28 | ED_ITS ---
HPI - Chest Pain General Chief Complaint: Chest Pain Stated Complaint: left arm pain-numb, chest pain, headache Time Seen by Provider: 12/22/21 16:39 Source: patient Mode of arrival: ambulatory Limitations: no limitations History of Present Illness HPI narrative: 21-year-old female came in for evaluation of chest pain. Left-sided chest pain started since last night pain is sharp and constant for almost 20 hours, described as mild dull ache 5/10, no shortness of breath, patient had similar pain in the past but today's pain is accompanied with pins and needle and numbness to left upper extremities more pronounced to the finger tips, patient stated that she sleeps on her left side usually and the numbness is more in the morning and night time. Patient declined any recent travel, no lower extremity swelling or edema, no known family history of SD at young age or PE at young age. No young in the family. Patient currently is studying [employer] program and feel stress and anxiety about it, initially patient was hypertensive in the ED, blood pressure is normalizing spontaneously in the ED. Related Data Previous Rx's Medication Instructions Recorded acetaminophen 500 mg tablet 500 mg PO Q6H PRN pain or fever 12/22/20 (Tylenol Extra Strength) #20 tabs cyclobenzaprine 5 mg tablet 5 mg PO Q8H PRN pain (scale score 12/22/20 7-10) 5 days #14 tabs lidocaine 5 % topical patch 1 patch topical DAILY PRN pain #30 12/22/20 (Lidoderm) ea naproxen 500 mg tablet 500 mg PO BID PRN pain 10 days #20 12/22/20 tabs cyclobenzaprine 10 mg tablet 10 mg PO TID PRN muscle spasm #14 07/31/21 tabs ondansetron 4 mg disintegrating 4 mg PO Q8H PRN nausea and 07/31/21 tablet vomiting #20 tabs pramoxine 1 % topical foam 1 appl [place] BID #15 grams 08/24/21 (Proctofoam) Allergies Allergy/AdvReac Type Severity Reaction Status Date / Time No Known Allergies Allergy Verified 08/24/21 19:29 Review of Systems Review of Systems: All other systems are reviewed and are negative Constitutional: Reports as per HPI and Reports no additional constitutional complaints Eyes: Reports as per HPI and Reports no additional eye complaints Reports system reviewed and no additional complaints, except as documented Cardiovascular: Reports as per HPI and Reports no additional cardiovascular complaints Respiratory: Reports as per HPI and Reports no additional respiratory complaints Gastrointestinal: Reports as per HPI and Reports no additional gastrointestinal complaints Genitourinary: Reports no additional female genitourinary complaints Musculoskeletal: Reports no additional musculoskeletal complaints Skin/Breast: Reports system reviewed and no additional complaints, except as docu Psychiatric: Reports no additional psychiatric complaints Endocrine: Reports no additional endocrine complaints Hematologic/Lymphatic: Reports no additional hematologic/lymphatic complaints Allergic/Immunologic: Reports no additional allergic/immunologic complaints Reports system reviewed and no additional complaints, except as documented and Reports Abnormal speech present [facility] Past Medical History Medical History No known health problems PCOS (polycystic ovarian syndrome) Surgical History H/O dilation and curettage H/O knee surgery Social History Social History Alcohol intake: never Patient Tobacco Use Status: Never used Tobacco Use of substances other than those prescribed or required for medical reasons: No Advance Directives: No Advance Directives Information Provided: No Patient : Yes Physical Exam Vital Signs: Vital Signs: Last Vital Signs Temp 97.8 F 12/22/21 19:48 Pulse 81 12/22/21 19:48 Resp 18 12/22/21 19:48 BP 123/75 12/22/21 19:48 Pulse Ox 99 12/22/21 19:48 O2 Del Method 12/22/21 19:48 BMI result Body Mass Index 37.9 Vital signs have been reviewed as appeared to be correct. Blood pressure normal. Heart rate normal. Respiration rate normal. Temperature normal. Oxygen saturation normal. Appearance: Alert. Oriented X3. No acute distress. Head: Normal external exam. Normocephalic. Atraumatic. No [place] signs noted. No raccoon eyes noted Eyes: PERRLA. EOMI. Conjunctiva and sclera normal. Eyelids normal. ENT: TM's Normal. Pharynx normal. Uvula midline. Moist mucous membranes. No trismus noted. No drooling noted. No muffled voice noted. Neck: Normal inspection. Neck supple. FROM. No adenopathy. Thyroid Normal. No meningeal signs. No neck mass noted. CVS: Normal heart rate and rhythm. Heart sound normal. No murmurs noted. Pulses normal throughout. Respiratory: No respiratory distress. Painless inspiration. Breath sounds normal. No wheezes/rales/rhonchi noted. Chest nontender. No accessory muscle usage noted or decreased air movement noted. Abdomen: Soft and nontender. Bowel sounds normal in all 4 quadrants. No distention noted. No organomegaly noted. No visible injury noted. Back: No CVA tenderness. Full range of motion noted. Skin: Skin warm and dry. Normal skin color. Normal skin turgor. No rashes/lesions/lacerations noted. Extremities: No lower extremity edema. Extremities exhibit normal range of motion. Extremities nontender. Neuro: Oriented X 3. Cranial nerve exam: II-XII are grossly intact No motor deficit. No sensory deficit. Reflexes normal. Course Course Course Narrative: Assessment and plan. 21-year-old female in the ED today for evaluation of chest pain, patient with HEART score of 0, with no risk for PE with negative D-dimer, patient's symptoms is likely related to anxiety and stress. Slight elevation of ALT patient was instructed to follow-up with her PCP patient have physical tomorrow with her PCP. MDM - Chest Pain Medical Records Data Attestation: I reviewed the patient's medical records. Lab Data Attestation: I reviewed the patient's lab results. Result diagrams: 12/22/21 19:45 12/22/21 16:29 Labs: Lab Results 12/22/21 12/22/21 12/22/21 Range/Units 16:29 16:29 17:01 WBC (4.8-10.8) X10*3/uL RBC (4.20-5.50) X10*6/uL Hgb (12.0-16.0) g/dl Hct (37.0-47.0) % MCV (80.0-98.0) fL MCH (27.0-33.0) pg MCHC (31.0-35.0) g/dl RDW (11.0-16.0) % Plt Count (160-400) X10*3/uL MPV (9.4-12.3) fL Immature Gran % (Auto) (0.0-0.4) % Neut % (Auto) (45-73) % Lymph % (Auto) (20-40) % [place] % (Auto) (2-11) % Eos % (Auto) (0-4) % Baso % (Auto) (0-2) % Lymph # (Auto) (1.2-4.9) X10*3/uL [place] # (Auto) (0.1-1.2) X10*3/uL Eos # (Auto) (0.0-0.4) X10*3/uL Baso # (Auto) (0.0-0.2) X10*3/uL Abs Immat Gran (auto) (0.00-0.03) X10*3/uL Absolute Neuts (auto) (2.0-8.3) x10*3/uL Absolute Nucleated RBC (0.0-0.012) X10*3/uL Nucleated RBC % (auto) (0.0-0.2) /100WBC D-Dimer High Sensitivty < 150 NG/ML Sodium 140 (135-145) mmol/L Potassium 4.7 (3.3-5.1) mmol/L Chloride 105 (96-108) mmol/L Carbon Dioxide 27 (22-29) mmol/L Anion Gap 13 (12-20) BUN 14 (9-16) mg/dL Creatinine 0.80 (0.5-1.4) mg/dL Estim Creat Clear Calc 135.0 Estimated GFR > 60 Random Glucose 96 (60-115) mg/dL Calcium 9.6 (8.4-10.2) mg/dL Total Bilirubin 0.8 (0.0-1.0) mg/dL AST 30 D (5-31) U/L ALT 62 H (0-31) U/L Alkaline Phosphatase 93 (39-117) U/L Troponin I High Sens < 3.5 (<3.5-17.0) ng/L Total Protein 7.7 (6.5-8.0) g/dL Albumin 4.4 (3.5-5.0) g/dL Urine Color Urine Appearance Urine pH (5.0-8.0) Ur Specific [place] (1.005-1.025) Urine Protein (NEG-TRACE) MG/DL Urine Glucose (UA) (NEG) MG/DL Urine Ketones (NEG) MG/DL Urine Blood (NEG) Urine Nitrite (NEG) Ur Leukocyte Esterase (NEG) Urine Test (NEGATIVE) 12/22/21 12/22/21 12/22/21 Range/Units 19:15 19:15 19:45 WBC 10.8 (4.8-10.8) X10*3/uL RBC 4.54 (4.20-5.50) X10*6/uL Hgb 12.6 (12.0-16.0) g/dl Hct 37.9 (37.0-47.0) % MCV 83.5 (80.0-98.0) fL MCH 27.8 (27.0-33.0) pg MCHC 33.2 (31.0-35.0) g/dl RDW 12.9 (11.0-16.0) % Plt Count 272 (160-400) X10*3/uL MPV 11.4 (9.4-12.3) fL Immature Gran % (Auto) 0.4 (0.0-0.4) % Neut % (Auto) 60.4 (45-73) % Lymph % (Auto) 26.9 (20-40) % [place] % (Auto) 8.6 (2-11) % Eos % (Auto) 3.1 (0-4) % Baso % (Auto) 0.6 (0-2) % Lymph # (Auto) 2.9 (1.2-4.9) X10*3/uL [place] # (Auto) 0.9 (0.1-1.2) X10*3/uL Eos # (Auto) 0.3 (0.0-0.4) X10*3/uL Baso # (Auto) 0.1 (0.0-0.2) X10*3/uL Abs Immat Gran (auto) 0.04 H (0.00-0.03) X10*3/uL Absolute Neuts (auto) 6.5 (2.0-8.3) x10*3/uL Absolute Nucleated RBC 0.000 (0.0-0.012) X10*3/uL Nucleated RBC % (auto) 0.0 (0.0-0.2) /100WBC D-Dimer High Sensitivty NG/ML Sodium (135-145) mmol/L Potassium (3.3-5.1) mmol/L Chloride (96-108) mmol/L Carbon Dioxide (22-29) mmol/L Anion Gap (12-20) BUN (9-16) mg/dL Creatinine (0.5-1.4) mg/dL Estim Creat Clear Calc Estimated GFR Random Glucose (60-115) mg/dL Calcium (8.4-10.2) mg/dL Total Bilirubin (0.0-1.0) mg/dL AST (5-31) U/L ALT (0-31) U/L Alkaline Phosphatase (39-117) U/L Troponin I High Sens (<3.5-17.0) ng/L Total Protein (6.5-8.0) g/dL Albumin (3.5-5.0) g/dL Urine Color YELLOW Urine Appearance CLEAR Urine pH 6.0 (5.0-8.0) Ur Specific [place] 1.020 (1.005-1.025) Urine Protein NEG (NEG-TRACE) MG/DL Urine Glucose (UA) NEG (NEG) MG/DL Urine Ketones NEG (NEG) MG/DL Urine Blood NEG (NEG) Urine Nitrite NEG (NEG) Ur Leukocyte Esterase NEG (NEG) Urine Test NEGATIVE (NEGATIVE) Imaging Data Chest x-ray: Attestation: I personally reviewed and interpreted this imaging study as follows: Radiologist's impression: No acute thoracic pathology. ECG Data ECG #1: Attestation: I personally reviewed and interpreted this ECG as follows: Interpretation: Normal sinus rhythm at 86 beats per minutes, normal axis deviation, normal intervals, no ST-T changes, no change from previous EKG. Discharge Plan Discharge Clinical Impression: Chest pain, Elevated liver function tests Patient Disposition: Home, Self-Care Instructions: Chest Pain (ED) Prescriptions: No Action acetaminophen [Tylenol Extra Strength] 500 mg tablet 500 mg PO Q6H PRN (Reason: pain or fever) Qty: 20 0RF lidocaine [Lidoderm] 5 % adhesive patch,medicated 1 patch topical DAILY MDD remove after 12 hours PRN (Reason: pain) Qty: 30 0RF Rx Instructions: leave on most painful area for up to 12 hrs naproxen 500 mg tablet 500 mg PO BID PRN (Reason: pain) 10 Days Qty: 20 0RF cyclobenzaprine 5 mg tablet 5 mg PO Q8H PRN (Reason: pain (scale score 7-10)) 5 Days Qty: 14 0RF cyclobenzaprine 10 mg tablet 10 mg PO TID PRN (Reason: muscle spasm) Qty: 14 0RF ondansetron 4 mg tablet,disintegrating 4 mg PO Q8H PRN (Reason: nausea and vomiting) Qty: 20 0RF pramoxine [Proctofoam] 1 % foam 1 appl [place] BID Qty: 15 0RF Referrals: Physician,Unknown J [Primary Care Provider] - Stand Alone Forms: Work/School Release
[2021-12-22 18:00] VITALS: BP 119/79; PULSE 79; RESP 16; TEMP 36.8; O2SAT 98
[2021-12-22 19:24] LABS: Appearance Urine CLEAR; Color Urine YELLOW; Glucose Urine UA NEG (NEG); Leukocyte Esterase Urine NEG (NEG); Nitrite Urine NEG (NEG); Urine Blood NEG (NEG); Urine Ketones NEG (NEG); Urine Protein NEG (NEG-TRACE)
[2021-12-22 19:48] VITALS: BP 123/75; PULSE 81; RESP 18; TEMP 36.6; O2SAT 99
[2021-12-22 19:55] LABS: MANUAL DIFF FLAG NO
[2021-12-22 19:58] LABS: Basophils Absolute Auto 0.1 X10*3/uL (0.0-0.2); Basophils Percent Auto 0.6 % (0-2); Eosinophils Absolute Auto 0.3 X10*3/uL (0.0-0.4); Eosinophils Percent Auto 3.1 % (0-4); Hematocrit 37.9 % (37.0-47.0); Hemoglobin 12.6 g/dl (12.0-16.0); Imm Gran Abs Auto 0.04 X10*3/uL (0.00-0.03); Imm Gran Pct Auto 0.4 % (0.0-0.4); Lymphocytes Absolute Auto 2.9 X10*3/uL (1.2-4.9); Lymphocytes Percent Auto 26.9 % (20-40); Mean Corpuscular HGB Conc 33.2 g/dl (31.0-35.0); Mean Corpuscular Hemoglobin 27.8 pg (27.0-33.0); Mean Corpuscular Volume 83.5 fL (80.0-98.0); Mean Platelet Volume 11.4 fL (9.4-12.3); Monocytes Absolute Auto 0.9 X10*3/uL (0.1-1.2); Monocytes Percent Auto 8.6 % (2-11); Neutrophils Absolute Auto 6.5 x10*3/uL (2.0-8.3); Neutrophils Percent Auto 60.4 % (45-73); Platelet Count 272 X10*3/uL (160-400); Red Blood Count 4.54 X10*6/uL (4.20-5.50); Red Cell Distribution Width 12.9 % (11.0-16.0); White Blood Count 10.8 X10*3/uL (4.8-10.8)
[2021-12-22 20:05] LABS: UPreg QC Valid YES; Urine Pregnancy NEGATIVE (NEGATIVE)
== END 2021-12-22 21:36 | disposition home or self-care (01) ==
PROVIDERS: Emergency Provider Emergency Medicine
DX: R07.9 Chest pain, unspecified (principal); R94.5 Abnormal results of liver function studies
CPT/HCPCS: 36415; 71045; 80053; 81003; 81025; 84484; 85025; 85379; 93005; 99283; 99285

== ENCOUNTER 2022-06-08 16:25 | Emergency (ER) | payer OTHER, SELFPAY ==
[2022-06-08 17:20] VITALS: BP 127/54; PULSE 88; RESP 20; TEMP 36.7; O2SAT 97; BMI 40.3
--- NOTE | 2022-06-08 17:21 | ED_ITS ---
HPI - Abdominal Pain General Chief Complaint: Abdominal Pain Stated Complaint: Pelvic/Back Pain Related Data Previous Rx's Medication Instructions Recorded acetaminophen 500 mg tablet 500 mg PO Q6H PRN pain or fever 12/22/20 (Tylenol Extra Strength) #20 tabs cyclobenzaprine 5 mg tablet 5 mg PO Q8H PRN pain (scale score 12/22/20 7-10) 5 days #14 tabs lidocaine 5 % topical patch 1 patch topical DAILY PRN pain #30 12/22/20 (Lidoderm) ea naproxen 500 mg tablet 500 mg PO BID PRN pain 10 days #20 12/22/20 tabs cyclobenzaprine 10 mg tablet 10 mg PO TID PRN muscle spasm #14 07/31/21 tabs ondansetron 4 mg disintegrating 4 mg PO Q8H PRN nausea and 07/31/21 tablet vomiting #20 tabs pramoxine 1 % topical foam 1 appl [place] BID #15 grams 08/24/21 (Proctofoam) Allergies Allergy/AdvReac Type Severity Reaction Status Date / Time No Known Allergies Allergy Verified 08/24/21 19:29 [facility] Past Medical History Medical History No known health problems PCOS (polycystic ovarian syndrome) Surgical History H/O dilation and curettage H/O knee surgery Social History Social History Alcohol intake: never Patient Tobacco Use Status: Never used Tobacco Advance Directives: No Advance Directives Information Provided: No Physical Exam ED Vital Signs: Vital Signs - 24 hr 06/08/22 17:20 Temperature 98.0 F Pulse Rate 88 Respiratory Rate 20 Blood Pressure 127/54 L Pulse Oximetry 97 Oxygen Delivery Method Room Air BMI result Body Mass Index 40.3 Course Course Course Narrative: This is a rapid medical exam. Deferred additional HPI, ROS and PE to primary provider. 21 year old female with a history of PCOS here with pelvic pain and low back pain since yesterday. Patient reports some urinary frequency as well. No nausea, vomiting, diarrhea. Will check UA, urine preg, labs. VSS Discharge Plan Discharge Clinical Impression: Abdominal pain Patient Disposition: Elopement Prescriptions: No Action acetaminophen [Tylenol Extra Strength] 500 mg tablet 500 mg PO Q6H PRN (Reason: pain or fever) Qty: 20 0RF lidocaine [Lidoderm] 5 % adhesive patch,medicated 1 patch topical DAILY MDD remove after 12 hours PRN (Reason: pain) Qty: 30 0RF Rx Instructions: leave on most painful area for up to 12 hrs naproxen 500 mg tablet 500 mg PO BID PRN (Reason: pain) 10 Days Qty: 20 0RF cyclobenzaprine 5 mg tablet 5 mg PO Q8H PRN (Reason: pain (scale score 7-10)) 5 Days Qty: 14 0RF cyclobenzaprine 10 mg tablet 10 mg PO TID PRN (Reason: muscle spasm) Qty: 14 0RF ondansetron 4 mg tablet,disintegrating 4 mg PO Q8H PRN (Reason: nausea and vomiting) Qty: 20 0RF pramoxine [Proctofoam] 1 % foam 1 appl [place] BID Qty: 15 0RF Discharge Date/Time: 06/08/22 23:16
--- OUTSIDE RECORDS SUMMARY | 2022-06-08 18:11 | XMS_ITS | Continuity of Care Document ---
:2000 Author Organization [facility] Address [address] [place] [id number]- Care Team Providers Name Role Phone Lauri MANN, Micaela De Leon Primary Care Physician [place] [facility] [place] - 03/24/[address] [id number] Attending Physician: Alma Gutierrez NP Admitting Physician: Alma Gutierrez NP Referring Physician: Alma Gutierrez NP Allergies, Adverse Reactions, Alerts Substance Reaction Severity Status Other Environmental Allergy seasonal Acti ve Medications hyoscyamine 0.125 mg sublingual tablet 1 tablet = 0.125 mg, Sublingual, Every 4 hours, # 30 tablet, 5 Refills, Maintenance, 05/02/20 17:34:00 EST, Tablet, [id number], 168.91, cm, 04/16/19 13:56:00 EDT, Height, 107.2, kg, 06/27/19 7:07:00 EST, Dry Weight Start Date: 05/02/20 Status: Orderedscarla- IUD scarla- IUD, Refills 0, Maintenance, 06/26/19 9:59:00 EST, Compound Start Date: 06/26/19 Status: Orderedsertraline 50 mg oral tablet 1 tablet = 50 mg, By Mouth, Daily, 0 Refills, Maintenance, 12/10/18 9:23:51 EDT Start Date: 12/10/18 Status: Ordered Problem List Condition Effective Dates Status Health Status Informant Focal nodular hyperplasia of Active liver(Confirmed) Nephrolithiasis(Confirmed) Active PCOS (polycystic ovarian Active syndrome)(Confirmed) Social History Social History Type Response Smoking Status Never entered on: 12/10/18 Sex Care Team PersonnelName: Lauri MANN, Micaela De Leon Address: [address] [place] [address], [place] [place], [place] [address]
--- OUTSIDE RECORDS SUMMARY | 2022-06-08 18:11 | XMS_ITS | Continuity of Care Document ---
:2000 Author Organization [facility] Address [address] [place] [id number]- Care Team Providers Name Role Phone Lauri MANN, Micaela De Leon Primary Care Physician En[place] [facility] [place] 09/01/20 - 09/01/[address] [address]- Discharge Disposition: A-D/C Walkout Attending Physician: Not on Staff, Attending MD Admitting Physician: Not on Staff, Admitting MD Referring Physician: Not on Staff, Referring MD Allergies, Adverse Reactions, Alerts Substance Reaction Severity Status Other Environmental Allergy seasonal Acti ve Medications hyoscyamine 0.125 mg sublingual tablet 1 tablet = 0.125 mg, Sublingual, Every 4 hours, # 30 tablet, 5 Refills, Maintenance, 05/02/20 17:34:00 EST, Tablet, [id number], 168.91, cm, 04/16/19 13:56:00 EDT, Height, [...] Nephrolithiasis(Confirmed) Active PCOS (polycystic ovarian Active syndrome)(Confirmed) Vital Signs Most recent to oldest [Reference Range]: 1 2 Oxygen Saturation [94-100 %] 100 % 98 % (09/01/20 5:48 PM) (09/01/20 5:30 PM) Pulse Rate [55-90 bpm] 88 bpm 88 bpm (09/01/20 5:48 PM) (09/01/20 5:30 PM) Blood Pressure [90-138/55-84 mm Hg] 123/64 mm Hg (09/01/20 5:48 PM) Respiratory Rate [16-30 br/min] 18 br/min (09/01/20 5:48 PM) Temperature [96.8-100.4 DegF] 98.2 DegF (09/01/20 5:48 PM) Mode of Delivery (Oxygen) Room air (09/01/20 5:48 PM) Blood pressure sites Arm, left (09/01/20 5:48 PM) Temperature Route Oral (09/01/20 5:48 PM) Social History Social History Type Response Smoking Status Never entered on: 12/10/18 Sex
--- OUTSIDE RECORDS SUMMARY | 2022-06-08 18:12 | XMS_ITS ---
:2000 Author Care Team Providers Name Role Phone MICAELA CARREON MD Primary Care Provider [phone] ROXANA RAO [employer] Teacher [phone] MARTÍN MONTERO MD Licensed Home Inspector [phone] SAKINA ANDREA MD [facility]in[facility] [phone] GODFREY LAMA MD Extension Associate [phone] Allergies Code Code System Name Reaction Severity Status Onset No Known Allergies ? ? Active ? NKDA ? Medications Name Status Start Date Stop Date ? ? acetaminophen 500 mg tablet Completed ? 12/02 B Complex Completed ? 10/09/2018 1 caplet po daily [id number]-rashnrnnhpxlw-zzqlooby 50 mg-300 Completed ? 06/20/2021 mg-40 mg capsule clotrimazole-betamethasone 1 %-0.05 % topical cream Active ? Not available APPLY TO AFFECTED AREA 2X A DAY FOR 7 D AYS IN THE MORNING AND EVENING (AND SURROUNDING AREAS) COVID-19 test specimen collection Completed ? 04/14/2021 TEST DIRECTED cyclobenzaprine 10 mg tablet Unknown ? Not available TAKE 1 TAB BY MOUTH 3 TIMES A DAY NEEDED FOR MUSCLE SPASM cyclobenzaprine 5 mg tablet Completed ? 04/01 escitalopram 10 mg tablet Active ? Not av ailable Excedrin Migraine 250 mg-250 mg-65 mg tablet Completed ? 10/09/2018 Take 1 tablet every day by oral route as needed. fluconazole 150 mg tablet Unknown ? Not av ailable TAKE 1 TABLET BY MOUTH ONCE FOR 1 DAY gabapentin 100 mg capsule Completed ? 2020 ibuprofen 600 mg tablet Completed ? 12/30/19 20 ID NOW COVID-19 Test Kit Active ? Not lindsay ilable TEST DIRECTED TODAY letrozole 2.5 mg tablet Completed ? 10/10/19 19 lidocaine 5 % topical patch Completed ? 12/02 magnesium Completed ? 10/09/2018 1 table po daily (strength unknown) meclizine 25 mg tablet Completed ? 9 Take 1 tablet 3 times a day by oral route as needed for 10 days . medroxyprogesterone 10 mg tablet Active ? Not available TAKE 1 TABLET BY MOUTH EVERY DAY FOR 10 DAYS meloxicam 7.5 mg tablet Completed ? 10/10/19 19 Take 1 tablet twice a day by oral route as directed for 30 days . metronidazole 0.75 % (37.5 mg/5 gram) vaginal gel Unknown ? Not available INSERT 1 APPLICATORFUL VAGINALLY EVERY DAY AT BEDTIME FOR 5 DAY S metronidazole 500 mg tablet Completed ? 12/02 metronidazole 500 mg tabs Completed ? 2019 metronidazole vaginal 0.75 % gel Completed ? 09/03/2019 naproxen 250 mg tablet Completed 07/03/2021 2 500 mg by oral route. naproxen 500 mg tablet Completed ? 1 naproxen 500 mg tabs Completed ? 09/03/2019 nitrofurantoin monohydrate/macrocrystals 100 mg Completed ? 11/08/2020 capsule norethindrone acetate 5 mg tablet Completed ? 02/24/2019 norethindrone acetate 5 mg tabs Completed ? 09/03/2019 ondansetron 4 mg disintegrating tablet Unknown ? Not available TAKE 1 TAB BY MOUTH EVERY 8 HOURS NEEDED FOR NAUSEA AND VOMI TING oxycodone 5 mg tablet Completed ? 12/30/2019 oxycodone hydrochloride 5 mg tabs Completed ? 09/03/2019 phenazopyridine 200 mg tablet Completed ? + DHA Completed ? 10/09/2018 1 tab daily orally sertraline 100 mg tablet Completed ? 022 sertraline 25 mg tablet Completed ? 02/25/20 19 sertraline 50 mg tablet Completed ? 02/25/20 19 sertraline hcl 25 mg tabs Completed ? 2019 sertraline hcl 50 mg tabs Completed ? 2019 sertraline hydrochloride 100 mg tabs Completed ? 09/03/2019 Jeniffer 14 mcg/24 hrs (3 yrs) 13.5 mg intrauterine device Complete d ? 12/02/2021 Take 1 {each} by intrauteri route. Azulfidine EN-tabs 500 mg tablet,delayed release Active 12/03/2019 Not available 1000 mg twice a day by oral route. sumatriptan 100 mg tablet Active ? Not av ailable TAKE 1/2 TO 1 TABLET BY MOUTH AT LEAST 2 HOURS BETWEEN DOSES NEEDED sumatriptan 25 mg tablet Active ? Not lindsay ilable TAKE 1-2 TABLETS BY MOUTH AT ONSET OF HEADACHE MAY REPEAT IN 2 HOURS ONCE sumatriptan 50 mg tablet Completed ? 019 sumatriptan succinate 50 mg tabs Completed ? 09/03/2019 terconazole 0.4 % crea Completed ? 0 terconazole 0.4 % vaginal cream Completed ? 04/30/2019 topiramate 50 mg tablet Active ? Not avai lable TAKE 1 TAB BY MOUTH AT BEDTIME X 5 DAYS , THEN TAKE 1 TAB 2 TIMES A DAY DIRECTED tranexamic acid 650 mg tablet Completed ? tranexamic acid 650 mg tabs Completed ? 10/2019 valacyclovir 500 mg tablet Active ? Not a vailable TAKE 1 TABLET BY MOUTH EVERY DAY Notes: ON HOLD Problems Name Status Onset Date Source ? Migraine Active 02/20/2018 ? History of Calculus of Kidney Active 02/20/2018 ? Polycystic Ovaries Active 02/20/2018 ? Hyperbilirubinemia Unknown 03/28/2018 ? Lesion of Liver Active 06/03/2018 ? Depressive Disorder Unknown 04/30/2019 ? Depressive Disorder Unknown 09/03/2019 ? Chronic Depression Unknown 11/03/2019 ? Calculus of Kidney and Ureter Unknown 06/07/2020 ? Moderate Recurrent Major Depression Active 11/08/2020 ? Anxiety Unknown 11/08/2020 ? Impaired Fasting Glycemia Active 11/08/2020 ? Pain in Right Knee Active 11/08/2020 ? Generalized Anxiety Disorder Active 12/29/2020 ? Injury of Neck Active 12/29/2020 ? Elevated Liver Enzymes Level Active 12/25/2021 ? Procedures Date Name Performed by ? 07/02/2016 Dilation and Curettage Information not a vailable 07/02/2015 Operation on Meniscus of the Knee Inform ation not available ? Domestic Partner Abuse Prevention Inform ation not available 03/22/2018 MRI, Brain, W/o Contrast Information not available 03/27/2018 MRI, Brain, W/wo Contrast [facility] ([facility]) [address] [place], [place] [address] (Work Place) 04/18/2018 XR, Kidney + Ureter + Bladder [facility] ([facility]) [address] [place], [place] [address] (Work Place) 08/21/2018 US, Pelvis, Transabdominal + [facility] (Ultrasound) Transvaginal [address] [place], [place] [address] (Work Place) 06/07/2020 CT, Abdomen + Pelvis, W/o Contrast [facility] [address] [place], [place] [address] (Work Place) 12/23/2021 US, Liver [facility] ter [address] [place], [place] [address] (Work Place) Results Lab Results Date Name Specimen Result Interpretation Description Value Range Status Address ? 12/09/2021 CBC W/ Auto ? Wbc 7.7 K/mm3 (4.0-11.0) F inal [facility] Diff K/mm3 Reference Laboratori es: [address], [place] ? ? ? Rbc 4.78 M/mm3 (4.20-5.40) Final [facility] M/mm3 Reference Laboratori es: [address], [place] ? ? ? Hgb 12.9 gm/dL (11.7-15.5) Final [facility] gm/dL Reference Laboratori es: [address], [place] ? ? ? Hct 41.1 % (35.7-45.8) Final [facility] % Reference Laboratori es: [address], [place] ? ? ? Mcv 86.0 fL (80.0-100.0 Final [place] ) fL Reference Laboratori es: [address], [place] ? ? ? Mch 27.0 pg (27.0-34.0) Final [facility] pg Reference Laboratori es: [address], [place] ? ? Low Mchc 31.4 g/dL (33.0-37.0) Final [facility] g/dL Reference Laboratori es: [address], [place] ? ? ? Plt 249 K/mm3 (150-460) Final [facility] K/mm3 Reference Laboratori es: [address], [place] ? ? ? RDW-SD 40.6 fL (<47.0) fL Final [facility] Reference Laboratori es: [address], [place] ? ? High Mpv 12.8 fL (9.4-12.4) Final [facility] ate fL Reference Laboratori es: [address], [place] ? ? ? Automated 0.0 #/100 ? Final [facility] NRBC WBC's Reference Laboratori es: [address], [place] ? ? ? Abs. NRBC 0.0 K/mm3 ? Final [facility] Reference Laboratori es: [address], [place] 12/09/2021 HbA1C ? Hemoglobi 5.4 % (4.0-5.6) % [facility] (Hemoglobin n a1C Refer ence a1C), Blood Labor atories: [address], [place] 12/09/2021 BMP, Serum ? Glucose 83 mg/dL (70-99) [facility] or Plasma mg/dL Referen ce Laboratori es: [address], [place] ? ? ? Bun 15 mg/dL (6-20) Final [facility] mg/dL Reference Laboratori es: [address], [place] ? ? ? Creatinin 0.8 mg/dL (0.5-1.0) Final [facility] e mg/dL Reference Laboratori es: [address], [place] ? ? ? Sodium 137 mmol/L (133-145) Final [facility] mmol/L Reference Laboratori es: [address], [place] ? ? ? Potassium 4.4 mmol/L (3.6-5.2) Final [facility] mmol/L Reference Laboratori es: [address], [place] ? ? ? Chloride 102 mmol/L (98-107) Final [facility] mmol/L Reference Laboratori es: [address], [place] ? ? ? Bicarbona 29 mmol/L (22-29) Final [facility] te mmol/L Reference Laboratori es: [address], [place] ? ? ? Anion Gap 6 (4-17) Final [facility] Reference Laborator[facility]: [address], [place] ? ? ? Calcium 9.5 mg/dL (8.6-10.5) Final [facility] mg/dL Reference Laboratori es: [address], [place] ? ? ? Estimated 108 ? Final [facility] GFR mL/min/1.7 Refere nce Creatinine 3 M2 Labora tories: [address], [place] 12/09/2021 Lipid Panel, ? Cholester 176 mg/dL (<200) Final [facility] Serum ol, Total mg/dL Referen ce Laboratori es: [address], [place] ? ? ? Triglycer 81 mg/dL (<150) Final [facility] jose l mg/dL Reference Laboratori es: [address], [place] ? ? ? HDL Chol 53 mg/dL (>39) mg/dL Final [facility] Reference Laboratori es: [address], [place] ? ? ? LDL 107 mg/dL (0-130) Final [facility] Cholestero mg/dL Refere nce l, Laboratori es: Calculated [address], [place] ? ? ? Non HDL 123 mg/dL (<160) Final [facility] Cholestero mg/dL Refere nce l (Calc) Laborato ning: [address], [place] 11/24/2021 Quantiferon ? Qtb Gold negative ? Fin al [facility] 1 Tube plus Reference Result Laboratori es: [address], [place] ? ? ? Nil 0.02 ? Final [facility] Result Reference Laboratori es: [address], [place] ? ? ? Mitogen >10.00 ? Final [facility] minus Nil Referen ce Result Laboratori es: [address], [place] ? ? ? TB1 Ag 0.00 ? Final [facility] minus Nil Referen ce Result Laboratori es: [address], [place] ? ? ? TB2 Ag 0.00 ? Final [facility] minus Nil Referen ce Result Laboratori es: [address], [place] 08/15/2021 HbA1C ? Hemoglobi 5.4 % (4.0-5.6) % [facility] (Hemoglobin n a1C Refer ence a1C), Blood Labor atories: [address], [place] 08/15/2021 CMP, Serum Low Glucose 66 mg/dL (70-99) Noris En[facility] or Plasma mg/dL Referen ce Laboratori es: [address], [place] ? ? ? Bun 14 mg/dL (6-20) Final [facility] mg/dL Reference Laboratori es: [address], [place] ? ? ? Creatinin 0.8 mg/dL (0.5-1.0) Final [facility] e mg/dL Reference Laboratori es: [address], [place] ? ? ? Sodium 140 mmol/L (133-145) Final [facility] mmol/L Reference Laboratori es: [address], [place] ? ? ? Potassium 4.8 mmol/L (3.6-5.2) Final [facility] mmol/L Reference Laboratori es: [address], [place] ? ? ? Chloride 102 mmol/L (98-107) Final [facility] mmol/L Reference Laboratori es: [address], [place] ? ? High Bicarbona 30 mmol/L (22-29) Final [facility] te mmol/L Reference Laboratori es: [address], [place] ? ? ? Anion Gap 8 (4-17) Final [facility] Reference Laboratori es: [address], [place] ? ? ? Albumin 4.5 gm/dL (3.4-4.8) Final [facility] gm/dL Reference Laboratori es: [address], [place] ? ? ? Calcium 10.0 mg/dL (8.6-10.5) Final [facility] mg/dL Reference Laboratori es: [address], [place] ? ? ? Bilirubin 0.6 mg/dL (0-1.2) Final [facility] ,total mg/dL Reference Laboratori es: [address], [place] ? ? ? Total 7.3 gm/dL (6.2-8.2) Final [facility] Protein gm/dL Reference Laboratori es: [address], [place] ? ? ? Ag Ratio 1.6 ? Final [facility] Reference Laboratori es: [address], [place] ? ? ? Ast 18 U/L (0-32) U/L Final [facility] Reference Laboratori es: [address], [place] ? ? ? Alk Phos 100 U/L (35-104) Final [facility] U/L Reference Laboratori es: [address], [place] ? ? ? Alt 25 U/L (0-33) U/L Final [facility] Reference Laboratori es: [address], [place] ? ? ? Estimated 106 ? Final [facility] GFR mL/min/1.7 Refere nce Creatinine 3 M2 Labora tories: [address], [place] 08/15/2021 BMP, Serum Low Glucose 69 mg/dL (70-99) [facility] or Plasma mg/dL Referen ce Laboratori es: [address], [place] ? ? ? Bun 14 mg/dL (6-20) Final [facility] mg/dL Reference Laboratori es: [address], [place] ? ? ? Creatinin 0.8 mg/dL (0.5-1.0) Final [facility] e mg/dL Reference Laboratori es: [address], [place] ? ? ? Sodium 140 mmol/L (133-145) Final [facility] mmol/L Reference Laboratori es: [address], [place] ? ? ? Potassium 4.7 mmol/L (3.6-5.2) Final [facility] mmol/L Reference Laboratori es: [address], [place] ? ? ? Chloride 102 mmol/L (98-107) Final [facility] mmol/L Reference Laboratori es: [address], [place] ? ? ? Bicarbona 29 mmol/L (22-29) Final [facility] te mmol/L Reference Laboratori es: [address], [place] ? ? ? Anion Gap 9 (4-17) Final [facility] Reference Laboratori es: [address], [place] ? ? ? Calcium 10.0 mg/dL (8.6-10.5) Final [facility] mg/dL Reference Laboratori es: [address], [place] ? ? ? Estimated 111 ? Final [facility] GFR mL/min/1.7 Refere nce Creatinine 3 M2 Labora tories: [address], [place] 08/15/2021 T4, Free, ? Free T4 1.15 NG/dL (0.70-1.80) Final [facility] Serum NG/dL Reference Laboratori es: [address], [place] 08/15/2021 TSH, Serum ? Tsh 1.50 (0.4-4.2) Final [facility] or Plasma uIU/mL uIU/mL Referen ce Laboratori es: [address], [place] 08/15/2021 CT + NG DNA, ? Urine ? (neg) Final [facility] PCR, Urine Chlamydia Ref erence Amp Probe Laborat ories: [address], [place] ? ? ? Urine GC ? (neg) Final [facility] Amp Probe Referen ce Laboratori es: [address], [place] 11/04/2020 Hepatitis B ? Anti-hbs 1.72 ? Final [facility] Surface Ab, Quant mIU/mL Refer ence Quantitative Labo ratories: , Serum [address], [place] 11/04/2020 Mumps Igg ? Mumps Ab ? ? Final [facility] Ab, Serum IgG Referen ce Laboratori es: [facility] [address], [place] 11/04/2020 Measles Igg ? Rubeola ? ? Final [facility] Ab, Serum Ab IgG Referen ce Laboratori es: [facility] [address], [place] 11/04/2020 Varicella-zo ? Varicella ? ? Fin al [facility] ster Igg Ab IgG Refer ence Screen, Antibody Laborat ories: Serum [address], [place] 11/04/2020 Rubella Igg ? Rubella ? ? Final [facility] Ab Screen, IgG Refere nce Serum Antibody Laborato ning: [address], [place] 11/04/2020 Tb (M ? Qtb Gold negative ? Final [facility] Tuberculosis plus Refe rencrispin ), Ifn-gamma Result Labo ratories: Latisha, Blood [address], [place] ? ? ? Quantifer comment ? Final [facility] on Reference Criteria Laborato ning: [address], [place] ? ? ? TB1 Ag 0.00 ? Final [facility] Value Reference Laboratori es: [address], [place] ? ? ? TB2 Ag 0.00 ? Final [facility] Value Reference Laboratori es: [address], [place] ? ? ? Nil Value 0.00 ? Final [facility] Reference Laboratori es: [address], [place] ? ? ? Mitogen >10.00 ? Final [facility] Value Reference Laboratori es: [address], [place] 06/11/2020 CBC W/ Auto ? Wbc 10.0 K/mm3 (4.0-11.0) Final [facility] Diff K/mm3 Reference Laboratori es: [address], [place] ? ? ? Rbc 4.83 M/mm3 (4.20-5.40) Final [facility] M/mm3 Reference Laboratori es: [address], [place] ? ? ? Hgb 12.2 gm/dL (11.7-15.5) Final [facility] gm/dL Reference Laboratori es: [address], [place] ? ? ? Hct 40.0 % (35.7-45.8) Final [facility] % Reference Laboratori es: [address], [place] ? ? ? Mcv 82.8 fL (80.0-100.0 Final [facility] ) fL Reference Laboratori es: [address], [place] ? ? Low Mch 25.3 pg (27.0-34.0) Final [facility] pg Reference Laboratori es: [address], [place] ? ? Low Mchc 30.5 g/dL (33.0-37.0) Final [facility] g/dL Reference Laboratori es: [address], [place] ? ? ? Plt 278 K/mm3 (150-460) Final [facility] K/mm3 Reference Laboratori es: [address], [place] ? ? High RDW-SD 49.5 fL (<47.0) fL Final [facility] Reference Laboratori es: [address], [place] ? ? High Mpv 13.3 fL (9.4-12.4) Final [facility] fL Reference Laboratori es: [address], [place] ? ? ? Automated 0.0 #/100 ? Final [facility] NRBC WBC's Reference Laboratori es: [address], [place] ? ? ? Abs. NRBC 0.0 K/mm3 ? Final [facility] Reference Laboratori es: [address], [place] ? ? High Neut # 7.1 K/mm3 (1.3-7.0) Final [facility] K/mm3 Reference Laboratori es: [address], [place] ? ? ? Lymph # 1.7 K/mm3 (0.8-3.1) Final [facility] K/mm3 Reference Laboratori es: [address], [place] ? ? ? Cedar# 0.7 K/mm3 (0.4-0.9) Final [facility] K/mm3 Reference Laboratori es: [address], [place] ? ? ? Eo # 0.4 K/mm3 (0.0-0.4) Final [facility] K/mm3 Reference Laboratori es: [address], [place] ? ? ? Baso # 0.1 K/mm3 (0.0-0.1) Final [facility] K/mm3 Reference Laboratori es: [address], [place] ? ? ? Abs. Imm 0.0 K/mm3 ? Final [facility] Gran Reference Laboratori es: [address], [place] ? ? ? Neut 71.0 % (44-76) % Final [facility] Reference Laboratori es: [address], [place] ? ? ? Lymph 17.2 % (15-43) % Final [facility] Reference Laboratori es: [address], [place] ? ? ? Monocyte 6.8 % (4.5-10.5) Final [facility] % Reference Laboratori es: [address], [place] ? ? ? Eo 3.9 % (0-6) % Final [facility] Reference Laboratori es: [address], [place] ? ? ? Baso 0.7 % (0-2) % Final [facility] Reference Laboratori es: [address], [place] ? ? ? Imm Gran 0.4 % ? Final [facility] e Reference Laboratori es: [address], [place] 06/11/2020 Urinalysis ? Appear/co ? ? Final [facility] Complete, travis Referen ce Reflex Laboratori es: Culture [address], [place] ? ? ? Sp. 1.026 (1.002-1.03 Final [facility] ate Blanca 0) Reference Laboratori es: [address], [place] ? ? ? Urine pH 6.0 (5.0-8.0) Final [facility] Reference Laboratori es: [address], [place] ? ? ? Urine negative (neg) Final [facility] Albumin Reference Laboratori es: [address], [place] ? ? ? Urine negative (neg) Final [facility] Glucose Reference Laboratori es: [address], [place] ? ? ? Urine negative (neg) Final [facility] Ketones Reference Laboratori es: [address], [place] ? ? ? Urine negative (neg) Final [facility] Bilirubin Referen ce Laboratori es: [address], [place] ? ? ? Urine negative (neg) Final [facility] Hemoglobin Refere nce Laboratori es: [address], [place] ? ? ? Urine negative (neg) Final [facility] Nitrite Reference Laboratori es: [address], [place] ? ? ? Urine negative (neg) Final [facility] Leukocyte Referen ce Laboratori es: [address], [place] ? ? ? Urobilino normal (norm) Final [facility] gen mg/dL mg/dL Reference Laboratori es: [address], [place] ? ? ? Urine <1 /hpf (0-5) /hpf Final [facility] Wbcs Reference Laboratori es: [address], [place] ? ? ? Urine none seen (0-3) /hpf Final [facility] Rbcs /hpf Reference Laboratori es: [address], [place] ? ? ? Mucus slight ? Final [facility] /lpf Reference Laboratori es: [address], [place] ? ? ? Squamous 3 /hpf (0-8) /hpf Final [facility] Epith Reference Laboratori es: [address], [place] ? ? ABNORMAL Clarity hazy (clear) Final [facility] Reference Laboratori es: [address], [place] ? ? ? Culture culture ? Final [facility] Indication not Refere nce indicated Laborat ories: [address], [place] 06/11/2020 BMP, Serum ? Glucose 98 mg/dL (70-99) [facility] l [facility] or Plasma mg/dL Referen ce Laboratori es: [address], [place] ? ? ? Bun 13 mg/dL (6-20) Final [facility] mg/dL Reference Laboratori es: [address], [place] ? ? ? Creatinin 0.9 mg/dL (0.5-1.0) Final [facility] e mg/dL Reference Laboratori es: [address], [place] ? ? ? Sodium 139 mmol/L (133-145) Final [facility] mmol/L Reference Laboratori es: [address], [place] ? ? ? Potassium 4.5 mmol/L (3.6-5.2) Final [facility] mmol/L Reference Laboratori es: [address], [place] ? ? ? Chloride 102 mmol/L (98-107) Final [facility] mmol/L Reference Laboratori es: [address], [place] ? ? ? Bicarbona 25 mmol/L (22-29) Final [facility] te mmol/L Reference Laboratori es: [address], [place] ? ? ? Anion Gap 12 (4-17) Final [facility] Reference Laboratori es: [address], [place] ? ? ? Calcium 9.7 mg/dL (8.6-10.5) Final [facility] mg/dL Reference Laboratori es: [address], [place] ? ? ? Est GFR 91 ? Final [facility] Non mL/min/1.7 Refere nce 3 M2 Laborator ies: Czech [address], [place] ? ? ? Est GFR 106 ? Final [facility] mL/min/1.7 Refer ence Czech 3 M2 Laborato ning: [address], [place] 12/31/2019 CBC W/ Auto ? Wbc 10.2 K/mm3 (4.0-11.0) Final [facility] Diff K/mm3 Reference Laboratori es: [address], [place] ? ? ? Rbc 5.01 M/mm3 (4.20-5.40) Final [facility] M/mm3 Reference Laboratori es: [address], [place] ? ? ? Hgb 12.8 gm/dL (11.7-15.5) Final [facility] gm/dL Reference Laboratori es: [address], [place] ? ? ? Hct 41.5 % (35.7-45.8) Final [facility] % Reference Laboratori es: [address], [place] ? ? ? Mcv 82.8 fL (80.0-100.0 Final [facility] ) fL Reference Laboratori es: [address], [place] ? ? Low Mch 25.5 pg (27.0-34.0) Final [facility] pg Reference Laboratori es: [address], [place] ? ? Low Mchc 30.8 g/dL (33.0-37.0) Final [facility] g/dL Reference Laboratori es: [address], [place] ? ? ? Plt 288 K/mm3 (150-460) Final [facility] K/mm3 Reference Laboratori es: [address], [place] ? ? High RDW-SD 51.1 fL (<47.0) fL Final [facility] Reference Laboratori es: [address], [place] ? ? ? Mpv 12.4 fL (9.4-12.4) Final [facility] fL Reference Laboratori es: [address], [place] ? ? ? Automated 0.0 #/100 ? Final [facility] WBC's Reference Laboratori es: [address], [place] ? ? ? Abs. NRBC 0.0 K/mm3 ? Final [facility] Reference Laboratori es: [address], [place] ? ? High Neut # 7.3 K/mm3 (1.3-7.0) Final [facility] K/mm3 Reference Laboratori es: [address], [place] ? ? ? Lymph # 1.9 K/mm3 (0.8-3.1) Final [facility] K/mm3 Reference Laboratori es: [address], [place] ? ? ? Cedar# 0.6 K/mm3 (0.4-0.9) Final [facility] K/mm3 Reference Laboratori es: [address], [place] ? ? ? Eo # 0.3 K/mm3 (0.0-0.4) Final [facility] K/mm3 Reference Laboratori es: [address], [place] ? ? ? Baso # 0.1 K/mm3 (0.0-0.1) Final [facility] K/mm3 Reference Laboratori es: [address], [place] ? ? ? Abs. Imm 0.0 K/mm3 ? Final [facility] Gran Reference Laboratori es: [address], [place] ? ? ? Neut 71.3 % (44-76) % Final [facility] Reference Laboratori es: [address], [place] ? ? ? Lymph 18.9 % (15-43) % Final [facility] Reference Laboratori es: [address], [place] ? ? ? Monocyte 6.1 % (4.5-10.5) Final [facility] % Reference Laboratori es: [address], [place] ? ? ? Eo 2.8 % (0-6) % Final [facility] Reference Laboratori es: [address], [place] ? ? ? Baso 0.6 % (0-2) % Final [facility] Reference Laboratori es: [address], [place] ? ? ? Imm Gran 0.3 % ? Final [facility] Reference Laboratori es: [address], [place] 04/18/2019 PPD ? Tb negative ? ? In-O ffice (Purified Order: Protein Internal Use Derivative), Only DO Not Skin Test Attach Compendium DO Not Attach Compendium , Do Not Delete/julio ge 08/21/2018 Urinalysis, ? Appear/co ? ? Noris mai [facility] Complete travis Referenc e Laboratori es: [address], [place] ? ? ? Sp. 1.028 (1.002-1.03 Final [facility] [place] 0) Reference Laboratori es: [address], [place] ? ? ? Urine pH 5.0 (4.0-8.0) Final [facility] conklin Reference Laboratori es: [address], [place] ? ? ? Urine negative (neg) Final [facility] Albumin Reference Laboratori es: [address], [place] ? ? ? Urine negative (neg) Final [facility] Glucose Reference Laboratori es: [address], [place] ? ? ? Urine negative (neg) Final [facility] Ketones Reference Laboratori es: [address], [place] ? ? ? Urine negative (neg) Final [facility] Bilirubin Referen ce Laboratori es: [address], [place] ? ? ABNORMAL Urine 3+ (neg) Final [facility] Hemoglobn Referen ce Laboratori es: [address], [place] ? ? ? Urine negative (neg) Final [facility] Nitrite Reference Laboratori es: [address], [place] ? ? ? Urine negative (neg) Final [facility] Leukocyte Referen ce Laboratori es: [address], [place] ? ? ? Urobilino normal (norm) Final [facility] mg/dL mg/dL Reference Laboratori es: [address], [place] ? ? ? Urine <1 /hpf (0-5) /hpf Final [facility] WBC's Reference Laboratori es: [address], [place] ? ? High Urine 4 /hpf (<3) /hpf Final [facility] RBC's Reference Laboratori es: [address], [place] ? ? ? Mucus slight ? Final [facility] /lpf Reference Laboratori es: [address], [place] ? ? ? Squamous 1 /hpf ? Final [facility] Epith Reference Laboratori es: [address], [place] ? ? ? Amorphous slight ? Final [facility] Crystals /hpf Referenc e Laboratori es: [address], [place] 08/21/2018 Culture, ? Specimen clean ? Final [facility] Urine Descriptio catch Refere nce n (urine) Laborator ies: [address], [place] ? ? ? Special none ? Final [facility] Requests Referenc e Laboratori es: [address], [place] ? ? ? Culture no growth ? Final [facility] Reference Laborator[facility] es: [address], [place] ? ? ? Report final ? Final [facility] Status 08/23/2018 Refere nce Laboratori es: [address], [place] 08/21/2018 ? Hcg negative ? ? I n-Office Test, Urine Order : Internal U se Only DO No t Attach Compendium DO Not Attach Compendium , Do Not Delete/julio ge 08/21/2018 Urinalysis, ? Leukocyte Negative ? ? In-Office Dipstick s Order: Internal U se Only DO No t Attach Compendium DO Not Attach Compendium , Do Not Delete/julio ge ? ? ? Nitritie negative ? ? In-Of fice Order: Internal U se Only DO No t Attach Compendium DO Not Attach Compendium , Do Not Delete/julio ge ? ? ? Urobilino .2 ? ? In-Off ice gen Order: Internal U se Only DO No t Attach Compendium DO Not Attach Compendium , Do Not Delete/julio ge ? ? ? Protein Negative ? ? In-Off ice Order: Internal U se Only DO No t Attach Compendium DO Not Attach Compendium , Do Not Delete/julio ge ? ? ? Ph 6.0 ? ? In-Office Order: Internal U se Only DO No t Attach Compendium DO Not Attach Compendium , Do Not Delete/julio ge ? ? ? Blood Large ? ? In-Office Order: Internal U se Only DO No t Attach Compendium DO Not Attach Compendium , Do Not Delete/julio ge ? ? ? Specific 1.030 ? ? In-Offi ce [place] Order: Internal U se Only DO No t Attach Compendium DO Not Attach Compendium , Do Not Delete/julio ge ? ? ? Ketone Negative ? ? In-Offi ce Order: Internal U se Only DO No t Attach Compendium DO Not Attach Compendium , Do Not Delete/julio ge ? ? ? Bilirubin Negative ? ? In-O ffice Order: Internal U se Only DO No t Attach Compendium DO Not Attach Compendium , Do Not Delete/julio ge ? ? ? Glucose Negative ? ? In-Off ice Order: Internal U se Only DO No t Attach Compendium DO Not Attach Compendium , Do Not Delete/julio ge ? ? ? Appearanc Clear ? ? In-Off ice e Order: Internal U se Only DO No t Attach Compendium DO Not Attach Compendium , Do Not Delete/julio ge ? ? ? Color Yellow ? ? In-Office Order: Internal U se Only DO No t Attach Compendium DO Not Attach Compendium , Do Not Delete/julio ge 07/29/2018 CBC W/ Auto ? Wbc 8.6 K/mm3 (4.0-11.0) F inal [facility] Diff K/mm3 Reference Laboratori es: [address], [place] ? ? ? Rbc 4.56 M/mm3 (4.20-5.40) Final [facility] M/mm3 Reference Laboratori es: [address], [place] ? ? ? Hgb 12.5 gm/dL (11.7-15.5) Final [facility] gm/dL Reference Laboratori es: [address], [place] ? ? ? Hct 39.4 % (35.7-45.8) Final [facility] % Reference Laboratori es: [address], [place] ? ? ? Mcv 86.4 fL (80.0-100.0 Final [facility] ) fL Reference Laboratori es: [address], [place] ? ? ? Mch 27.4 pg (27.0-34.0) Final [facility] pg Reference Laboratori es: [address], [place] ? ? Low Mchc 31.7 g/dL (33.0-37.0) Final [facility] g/dL Reference Laboratori es: [address], [place] ? ? ? Plt 249 K/mm3 (150-460) Final [facility] K/mm3 Reference Laboratori es: [address], [place] ? ? ? RDW-SD 41.0 fL (<47.0) fL Final [facility] [place] Reference Laboratori es: [address], [place] ? ? High Mpv 12.8 fL (9.4-12.4) Final [facility] ate fL Reference Laboratori es: [address], [place] ? ? ? Automated 0.0 #/100 ? Final [place] [facility] NRBC WBC's Reference Laboratori es: [address], [place] ? ? ? Abs. NRBC 0.0 K/mm3 ? Final [place] [facility] Reference Laboratori es: [address], [place] ? ? ? Neut # 5.5 K/mm3 (1.3-7.0) Final [place] [facility] K/mm3 Reference Laboratori es: [address], [place] ? ? ? Lymph # 2.2 K/mm3 (0.8-3.1) Final [facility] K/mm3 Reference Laboratori es: [address], [place] ? ? ? Cedar# 0.7 K/mm3 (0.4-0.9) Final [facility] [place] K/mm3 Reference Laboratori es: [address], [place] ? ? ? Eo # 0.2 K/mm3 (0.0-0.4) Final [facility] [place] K/mm3 Reference Laboratori es: [address], [place] ? ? ? Baso # 0.1 K/mm3 (0.0-0.1) Final [place] [facility] K/mm3 Reference Laboratori es: [address], [place] ? ? ? Abs. Imm 0.0 K/mm3 ? Final [facility] [place] Gran Reference Laboratori es: [address], [place] ? ? ? Neut 63.9 % (44-76) % Final [facility] Reference Laborator[facility] es: [address], [place] ? ? ? Lymph 25.1 % (15-43) % Final [facility] Reference Laboratori es: [address], [place] ? ? ? Monocyte 7.5 % (4.5-10.5) Final [place] [facility] % Reference Laboratori es: [address], [place] ? ? ? Eo 2.6 % (0-6) % Final [facility] Reference Laborator[facility]: [address], [place] ? ? ? Baso 0.7 % (0-2) % Final [facility] Reference Laborator[facility] es: [address], [place] ? ? ? Imm Gran 0.2 % (0.0-0.6) % [facility] Reference Labor[facility] es: [address], [place] 07/29/2018 Urinalysis ? Appear/co ? ? Final [facility] Complete, travis Referen ce Reflex Laboratori es: Culture [address], [place] ? ? High Sp. 1.032 (1.002-1.03 Final [facility] [place] 0) Reference Laboratori es: [address], [place] ? ? ? Urine pH 5.0 (4.0-8.0) Final [facility] [place] Reference Laboratori es: [address], [place] ? ? ? Urine negative (neg) Final [facility] Albumin Reference Laboratori es: [address], [place] ? ? ? Urine negative (neg) Final [facility] Glucose Reference Laboratori es: [address], [place] ? ? ? Urine negative (neg) Final [facility] Ketones Reference Laboratori es: [address], [place] ? ? ? Urine negative (neg) Final [facility] Bilirubin Referen ce Laboratori es: [address], [place] ? ? ABNORMAL Urine 1+ (neg) Final [facility] Hemoglobn Referen ce Laboratori es: [address], [place] ? ? ? Urine negative (neg) Final [facility] Nitrite Reference Laboratori es: [address], [place] ? ? ? Urine negative (neg) Final [facility] Leukocyte Referen ce Laboratori es: [address], [place] ? ? ? Urobilino normal (norm) Final [facility] mg/dL mg/dL Reference Laboratori es: [address], [place] ? ? ? Urine <1 /hpf (0-5) /hpf Final [facility] WBC's Reference Laboratori es: [address], [place] ? ? ? Urine 1 /hpf (<3) /hpf Final [facility] RBC's Reference Laboratori es: [address], [place] ? ? ? Mucus slight ? Final [facility] /lpf Reference Laboratori es: [address], [place] ? ? ? Squamous 7 /hpf ? Final [facility] Epith Reference Laboratori es: [address], [place] ? ? ? Clarity clear (clear) Final [facility] Reference Laboratori es: [address], [place] ? ? ? Culture culture ? Final [facility] Indication not Refere nce indicated Laborat ories: [address], [place] 07/29/2018 TSH, Serum ? Tsh 0.98 (0.40-4.00) Noris l [facility] or Plasma mIU/mL mIU/mL Referen ce Laboratori es: [address], [place] 03/22/2018 CBC W/ Auto ? Wbc 6.1 K/mm3 (4.0-11.0) F inal [facility] Diff K/mm3 Reference Laboratori es: [address], [place] ? ? ? Rbc 4.81 M/mm3 (4.20-5.40) Final [facility] M/mm3 Reference Laboratori es: [address], [place] ? ? ? Hgb 13.3 gm/dL (11.7-15.5) Final [facility] gm/dL Reference Laboratori es: [address], [place] ? ? ? Hct 42.0 % (35.7-45.8) Final [facility] % Reference Laboratori es: [address], [place] ? ? ? Mcv 87.3 fL (80.0-100.0 Final [facility] [place] ) fL Reference Laboratori es: [address], [place] ? ? ? Mch 27.7 pg (27.0-34.0) Final [facility] [place] pg Reference Laboratori es: [address], [place] ? ? Low Mchc 31.7 g/dL (33.0-37.0) Final [facility] g/dL Reference Laboratori es: [address], [place] ? ? ? Plt 234 K/mm3 (150-460) Final [facility] [place] K/mm3 Reference Laboratori es: [address], [place] ? ? ? RDW-SD 39.7 fL (<47.0) fL Final [facility] [place] Reference Laboratori es: [address], [place] ? ? High Mpv 12.6 fL (9.4-12.4) Final [facility] ate fL Reference Laboratori es: [address], [place] ? ? ? Automated 0.0 #/100 ? Final [facility] NRBC WBC's Reference Laboratori es: [address], [place] ? ? ? Abs. NRBC 0.0 K/mm3 ? Final [place] [facility] Reference Laboratori es: [address], [place] ? ? ? Neut # 3.8 K/mm3 (1.3-7.0) Final [place] K/mm3 Reference Laboratori es: [address], [place] ? ? ? Lymph # 1.6 K/mm3 (0.8-3.1) Final [facility] K/mm3 Reference Laboratori es: [address], [place] ? ? ? Cedar# 0.5 K/mm3 (0.4-0.9) Final [facility] [place] K/mm3 Reference Laboratori es: [address], [place] ? ? ? Eo # 0.2 K/mm3 (0.0-0.4) Final [facility] K/mm3 Reference Laboratori es: [address], [place] ? ? ? Baso # 0.1 K/mm3 (0.0-0.1) Final [place] [facility] K/mm3 Reference Laboratori es: [address], [place] ? ? ? Abs. Imm 0.0 K/mm3 ? Final [facility] Gran Reference Laboratori es: [address], [place] ? ? ? Neut 62.8 % (44-76) % Final [facility] Reference Laboratori es: [address], [place] ? ? ? Lymph 25.7 % (15-43) % Final [facility] Reference Laboratori es: [address], [place] ? ? ? Monocyte 7.4 % (4.5-10.5) Final [place] [facility] % Reference Laboratori es: [address], [place] ? ? ? Eo 3.0 % (0-6) % Final [facility] Reference Laboratori es: [address], [place] ? ? ? Baso 0.8 % (0-2) % Final [facility] Reference Laboratori es: [address], [place] ? ? ? Imm Gran 0.3 % (0.0-0.6) % Final [facility] Reference Laborator[facility] es: [address], [place] 03/22/2018 Hepatic High Bilirubin 1.4 mg/dL (0-1.2) Noris l [facility] Function ,total mg/dL Referenc e Panel, Serum Labo ratories: [address], [place] ? ? ? Bilirubin 0.2 mg/dL (0-0.3) Final [facility] , Direct mg/dL Referenc e Laboratori es: [address], [place] ? ? High Indirect 1.2 mg/dL (0.0-0.7) Final [facility] Bilirubin mg/dL Referen ce Laboratori es: [address], [place] ? ? ? Albumin 4.7 gm/dL (3.4-4.8) Final [facility] gm/dL Reference Laboratori es: [address], [place] ? ? ? Ast 23 U/L (0-32) U/L Final [facility] Reference Laboratori es: [address], [place] ? ? ? Alt 23 U/L (0-33) U/L Final [facility] Reference Laboratori es: [address], [place] ? ? ? Alk Phos 79 U/L (35-104) Final [facility] U/L Reference Laboratori es: [address], [place] ? ? ? Total 7.4 gm/dL (6.2-8.2) Final [facility] Protein gm/dL Reference Laboratori es: [address], [place] 03/22/2018 Insulin, ? Insulin 11.8 (2.6-24.9) Final [facility] Serum uIU/mL uIU/mL Reference Laboratori es: [address], [place] 03/22/2018 beta-HCG, ? <1 mIU/mL (0-5) Fin al [facility] Quantitative Blood mIU/mL Refe rence , Serum or Quantitati La boratories: Plasma ve [address], [place] 03/22/2018 Estradiol, ? Estradiol 53 pg/mL ? Fin al [facility] Serum Reference Laboratori es: [address], [place] 03/22/2018 FSH ? Fsh 5.8 mIU/mL ? Final [facility] (Follicle-st Refe rence imulating Laborat ories: Hormone), [address], [place] 03/22/2018 Lh ? Lh 17.6 ? Final [facility] (Luteinizing mIU/mL Refe rence Hormone), Laborat ories: Serum [address], [place] 03/22/2018 Prolactin, ? Prolactin 16.8 NG/mL (4.8-23. 3) Final [facility] Serum NG/mL Reference Laboratori es: [address], [place] 03/22/2018 Testosterone High Testoster 69 ? Fin al [facility] , Free, one, Serum Refer ence Serum Total Laboratori es: [address], [place] ? ? ? Shbg 40.0 ? Final [facility] nmol/L Reference Laboratori es: [address], [place] ? ? High Free 1.22 NG/dL (0.07-0.99) Final [facility] Testostero NG/dL Refere nce ne, Laboratori es: Estimated [address], [place] 03/22/2018 ? Hcg negative ? ? I n-Office Test, Urine Order : Internal U se Only DO No t Attach Compendium DO Not Attach Compendium , Do Not Delete/julio ge 02/20/2018 BMP, Serum ? Glucose 91 mg/dL (70-99) Noris l [facility] or Plasma mg/dL Referen ce Laboratori es: [address], [place] ? ? ? Bun 16 mg/dL (6-20) Final [facility] mg/dL Reference Laboratori es: [address], [place] ? ? ? Creatinin 0.7 mg/dL (0.5-1.0) Final [facility] e mg/dL Reference Laboratori es: [address], [place] ? ? ? Sodium 141 mmol/L (133-145) Final [facility] mmol/L Reference Laboratori es: [address], [place] ? ? ? Potassium 4.9 mmol/L (3.6-5.2) Final [facility] mmol/L Reference Laboratori es: [address], [place] ? ? ? Chloride 101 mmol/L (98-107) Final [facility] mmol/L Reference Laboratori es: [address], [place] ? ? ? Bicarbona 29 mmol/L (22-29) Final [facility] te mmol/L Reference Laboratori es: [address], [place] ? ? ? Anion Gap 11 (4-17) Final [facility] Reference Laboratori es: [address], [place] ? ? ? Calcium 10.0 mg/dL (8.6-10.5) Final [facility] mg/dL Reference Laboratori es: [address], [place] ? ? ? Est GFR 126 ? Final [facility] Non mL/min/1.7 Refere nce 3 M2 Laborator ies: Czech [address], [place] ? ? ? Est GFR 146 ? Final [facility] mL/min/1.7 Refer ence Czech 3 M2 Laborato ning: [address], [place] 02/20/2018 Lipid Panel, High Cholester 171 mg/dL (<170) Final [facility] Serum ol, Total mg/dL Referen ce Laboratori es: [address], [place] ? ? ? Triglycer 83 mg/dL (<90) mg/dL Final [facility] jose l Reference Laboratori es: [address], [place] ? ? ? HDL Chol 66 mg/dL (>45) mg/dL Final [facility] Reference Laboratori es: [address], [place] ? ? ? LDL 88 mg/dL (0-109) Final [facility] Cholestero mg/dL Refere nce l, Laboratori es: Calculated [address], [place] ? ? ? Non HDL 105 mg/dL (<120) Final [facility] Cholestero mg/dL Refere nce l (Calc) Laborato ning: [address], [place] 02/20/2018 TSH, Serum ? Tsh 1.19 (0.40-4.00) Noris l [facility] or Plasma mIU/mL mIU/mL Referen ce Laboratori es: [address], [place] Past Encounters Encounter Date Diagnosis Provider 01/31/2022 Moderate Recurrent Major Depression; Tatiana Galvan MD: [id number] Generalized Anxiety Disorder [address] [address], Ph. [phone] 01/24/2022 Migraine Joaquin Posadas PA-C : [address] [address], Ph. 12/23/2021 Adult Health Examination; Moderate Alma Gutierrez, FIELD TECH: 3640 Recurrent Major Depression; Elevated [address] [place] [address], [place], Liver Enzymes Level; Hepatitis [place] [phone], Ph. [phone] Screening; Screening for Malignant [phone] Neoplasm of Cervix 12/02/2021 Dizziness; Headache; Hypoglycemia; Alma L Krustapentus, FIELD TECH: 3640 Generalized Anxiety Disorder [address], [place] [address], Ph. 06/20/2021 Moderate Recurrent Major Depression; Aditi Carreon MD: Fatigue; Headache [address] [facility] [address], [place], [place] [phone], Ph. 06/03/2021 Generalized Anxiety Disorder; Micaela Somers MD: Migraine; Moderate Recurrent Major [address] [facility] [address], Depression; Counseling [place], [place] [phone], Ph. 04/14/2021 Major Depression Single Episode, in Micaela Carreon MD: Partial Remission; Anxiety; Poor [address] [place] [address], Focus; [place] [phone], Ph. 03/01/2021 Musculoskeletal Chest Pain Kenya KAITLYN FarmerC: [address] [facility] [address], [place] [address], Ph. 01/11/2021 Injury of Neck; Moderate Recurrent Serakto yossi Posadas PA-C: 3640 Major Depression; Generalized Headache [address] [place] [address], [place] [address], Ph. 12/29/2020 Injury of Neck; Moderate Recurrent Vikto yossi Posadas PA-C: 3640 Major Depression; Generalized Anxiety Ma in [address], [place] [address], Ph. [phone] Social History Tobacco Smoking Status Never Smoker Vaccine List Vaccine Type COVID-19, mRNA, LNP-S, PF, 100 mcg/0.5 m L dose (Moderna) 12/31/2020 01/30/2021 02/10/2021?0.5 ML 09/15/2021 DTaP 01/14/1999 03/18/1999 06/01/1999 06/01/2000 01/01/2004 Hep A, adult 07/10/2017 Hep B, adolescent or pediatric 1998 01/14/1999 06/01/1999 Hep B, adult 05/15/2021 Hib (HbOC) 01/14/1999 03/18/1999 06/01/1999 02/17/2000 HPV, unspecified formulation 01/19/2010 08/10/2011 01/03/2013 influenza, injectable, quadrivalent, pre servative free 03/22/2018?0.5 ML 04/16/2019?0.5 ML 04/14/2021 IPV 01/14/1999 03/18/1999 06/01/2000 01/01/2004 meningococcal C conjugate 01/19/2010 12/28/2015 meningococcal [id number] 05/15/2021 MMR 11/16/1999 01/01/2004 Pneumococcal Conjugate, unspecified form ulation 02/17/2000 06/01/2000 Tdap 01/19/2010 11/08/2020?0.5 ML varicella 11/16/1999 01/19/2010 Plan of Care Reminders Provider Appointments None recorded. ? ? Lab None recorded. ? ? Referral None recorded. ? ? Procedures None recorded. ? ? Surgeries None recorded. ? ? Imaging None recorded. ? ? Vitals 01/31/2022 03:15PM UV30 Height Weight BMI Blood Pressure 5 ft 6.5 in 256 lbs 2 oz 40.7 kg/m2 114/76 mm[Hg] 12/23/2021 01:30PM PE EST Height Weight BMI Blood Pressure 5 ft 6.5 in 249 lbs 16 oz 39.7 kg/m2 (1) 144/80 mm[H g] (2) 152/92 mm[Hg ] 12/02/2021 01:15PM FOLLOW UP Height Weight BMI Blood Pressure 5 ft 6.5 in 245 lbs 8 oz 39 kg/m2 112/69 mm[Hg] 06/20/2021 03:25PM [id number] Height 5 ft 6.5 in 06/03/2021 10:30AM FOLLOW UP 30MIN Height Weight BMI Blood Pressure 5 ft 6.5 in 219 lbs 2 oz 34.8 kg/m2 113/63 mm[Hg] 04/14/2021 04:15PM [id number] Height 5 ft 6.5 in 03/01/2021 01:30PM FOLLOW UP Height Weight BMI Blood Pressure 5 ft 6.5 in 223 lbs 35.5 kg/m2 115/67 mm[Hg] 01/11/2021 04:00PM UV30 Height Weight BMI Blood Pressure 5 ft 6.5 in 218 lbs 2 oz 34.7 kg/m2 113/77 mm[Hg] 12/29/2020 10:00AM FOLLOW UP Height Weight BMI Blood Pressure 5 ft 6.5 in 215 lbs 34.2 kg/m2 98/64 mm[Hg] 11/19/2020 01:30PM UV30 Height Weight BMI Blood Pressure 5 ft 6.5 in 227 lbs 36.1 kg/m2 103/69 mm[Hg] 11/08/2020 08:45AM PE EST Height Weight BMI Blood Pressure 5 ft 6.5 in 226 lbs 2 oz 36 kg/m2 119/73 mm[Hg] 06/07/2020 02:40PM [email or web address] Height 5 ft 6.5 in 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 11/03/2019 02:15PM [id number] Height 5 ft 6.5 in 09/03/2019 12:45PM FOLLOW UP Height Weight BMI Blood Pressure 5 ft 6.5 in 241 lbs 3 oz 38.3 kg/m2 116/77 mm[Hg] 04/30/2019 03:15PM FOLLOW UP Height Weight BMI Blood Pressure 5 ft 6.5 in 233 lbs 4 oz 37.1 kg/m2 103/64 mm[Hg] 02/24/2019 10:00AM PE EST Height Weight BMI Blood Pressure 5 ft 6.5 in 230 lbs 6 oz 36.6 kg/m2 115/66 mm[Hg] 10/09/2018 04:00PM FOLLOW UP Height Weight BMI Blood Pressure 5 ft 6.5 in 211 lbs 6 oz 33.6 kg/m2 117/73 mm[Hg] 08/21/2018 02:00PM URGENT Height Weight BMI Blood Pressure 5 ft 6.5 in 218 lbs 34.7 kg/m2 128/78 mm[Hg] 07/29/2018 04:00PM ANY 15 Height Weight BMI Blood Pressure 5 ft 6.5 in 221 lbs 4 oz 35.2 kg/m2 121/77 mm[Hg] 06/03/2018 04:45PM FOLLOW UP Height Weight BMI Blood Pressure 5 ft 6.5 in 218 lbs 4 oz 34.7 kg/m2 115/67 mm[Hg] 04/18/2018 10:45AM FOLLOW UP Height Weight BMI Blood Pressure 5 ft 6.5 in 211 lbs 16 oz 33.7 kg/m2 111/72 mm[Hg] 03/22/2018 09:15AM URGENT Height Weight BMI Blood Pressure 5 ft 6.5 in 214 lbs 34 kg/m2 107/69 mm[Hg] 02/20/2018 11:00AM NEW PT Height Weight BMI Blood Pressure 5 ft 6.5 in 212 lbs 2 oz 33.7 kg/m2 111/61 mm[Hg]
[2022-06-08 18:22] LABS: MANUAL DIFF FLAG NO
[2022-06-08 18:24] LABS: Appearance Urine Clear; Color Urine Yellow; Glucose Urine UA Negative (Negative); Leukocyte Esterase Urine Negative (Negative); Nitrite Urine Negative (Negative); PH 5.5 (5.0-9.0); Specific Gravity - Urine >= 1.030 (1.005-1.025); Urine Blood Negative (Negative); Urine Ketones Trace mg/dL (Negative); Urine Protein Negative (Neg-Trace)
[2022-06-08 18:26] LABS: Basophils Absolute Auto 0.1 X10*3/uL (0.0-0.2); Basophils Percent Auto 0.7 % (0-2); Eosinophils Absolute Auto 0.4 X10*3/uL (0.0-0.4); Eosinophils Percent Auto 3.6 % (0-4); Hematocrit 42.3 % (37.0-47.0); Hemoglobin 13.6 g/dl (12.0-16.0); Imm Gran Abs Auto 0.02 X10*3/uL (0.00-0.03); Imm Gran Pct Auto 0.2 % (0.0-0.4); Lymphocytes Absolute Auto 2.6 X10*3/uL (1.2-4.9); Lymphocytes Percent Auto 26.6 % (20-40); Mean Corpuscular HGB Conc 32.2 g/dl (31.0-35.0); Mean Corpuscular Volume 84.1 fL (80.0-98.0); Mean Platelet Volume 11.2 fL (9.4-12.3); Monocytes Absolute Auto 0.8 X10*3/uL (0.1-1.2); Monocytes Percent Auto 7.7 % (2-11); Neutrophils Absolute Auto 6.1 x10*3/uL (2.0-8.3); Neutrophils Percent Auto 61.2 % (45-73); Platelet Count 293 X10*3/uL (160-400); Red Blood Count 5.03 X10*6/uL (4.20-5.50); Red Cell Distribution Width 13.5 % (11.0-16.0); White Blood Count 9.9 X10*3/uL (4.8-10.8)
[2022-06-08 18:26] LABS: UPreg QC Valid YES; Urine Pregnancy NEGATIVE (NEGATIVE)
[2022-06-08 18:37] LABS: COVID-19 Test Negative (Negative); IDNOW Serial# 16C4AD1C
[2022-06-08 18:39] LABS: Alanine Aminotransferase 34 U/L (0-31); Albumin Level 4.3 g/dL (3.5-5.0); Alkaline Phosphatase 88 U/L (39-117); Anion Gap 13 (12-20); Aspartate Amino Transferase 22 U/L (5-31); Bilirubin Direct 0.2 mg/dL (0.0-0.5); Bilirubin Total 0.7 mg/dL (0.0-1.0); Blood Urea Nitrogen 17 mg/dL (9-16); Calcium 9.5 mg/dL (8.4-10.2); Carbon Dioxide 28 mmol/L (22-29); Chloride 105 mmol/L (96-108); Creatinine Clr Calc Pharmacy 115.2; Estimated Glomerular Filt Rate > 60; Glucose Random 83 mg/dL (60-115); Potassium 4.5 mmol/L (3.3-5.1); Sodium 141 mmol/L (135-145); Total Protein 7.3 g/dL (6.5-8.0)
== END 2022-06-08 23:16 | disposition left against medical advice (07) ==
PROVIDERS: Nurse Practitioner Family; Emergency Provider Emergency Medicine; PCP Internal Medicine
DX: M54.50 Low back pain, unspecified (principal); Z20.822 Contact with and (suspected) exposure to COVID-19; Z79.899 Other long term (current) drug therapy
CPT/HCPCS: 36415; 80048; 80076; 81003; 81025; 85025; 87635; 99282; 99283

== ENCOUNTER 2022-06-09 13:35 | Emergency (ER) | payer OTHER, SELFPAY ==
--- NOTE | ~2022-06-09 | US_ITS ---
EXAMINATION: US RETROPERITONEAL LIMITED (RENAL ONLY) CLINICAL INFORMATION: Right flank pain. COMPARISON: None TECHNIQUE: Multiple 2-D grayscale and Doppler ultrasound images of the abdomen were obtained. FINDINGS: RIGHT KIDNEY: 11.1 x 4.1 x 5.1 cm (SAG x AP x TRV). The kidney is normal in size, contour, and echogenicity. Renal cortical thickness is normal. No calculi or focal parenchymal lesions. No hydronephrosis. LEFT KIDNEY: 11.4 x 4.8 x 4.7 cm (SAG x AP x TRV). The kidney is normal in size, contour, and echogenicity. Renal cortical thickness is normal. No calculi or focal parenchymal lesions. No hydronephrosis. OTHER: Incidental note of heterogeneous hypoechoic mass in the liver with anteriorly in the right hepatic lobe measuring 9.1 x 4.6 x 8.9 cm. Doppler showed no significant hypervascularity. US/US renal BI IMPRESSION: 1. No significant renal abnormality. 2. Incidental hypoechoic mass in the right hepatic lobe. Given the size, this is nonspecific and could represent focal fatty sparing in the setting of mild steatosis, but a mass cannot be excluded. Further evaluation with contrast-enhanced abdominal MRI is recommended for better characterization.
--- NOTE | ~2022-06-09 | CT_ITS ---
EXAMINATION: CT ABDOMEN AND PELVIS WITH CONTRAST CLINICAL INFORMATION: Pelvic pressure, abdominal pain, flank pain COMPARISON: None TECHNIQUE: Multidetector volumetric images were obtained from the superior aspect of the liver through the pubic symphysis following administration 85 mL of Omnipaque 350 intravenous contrast. Sagittal and coronal reformatted images were obtained on the technologist's workstation. Oral contrast: No This CT examination was performed using dose optimization techniques as appropriate, variously including the following: *Automated exposure control *Adjustment of mA and/or kV according to patient size (this includes techniques or standardized protocols for targeted exams where dose is matched to indication/reason for exam; i.e. extremities or head) *Use of iterative reconstruction technique DLP: 957 mGy-cm FINDINGS: LUNG BASES: The visualized lung bases are unremarkable. LIVER, GALLBLADDER, AND BILIARY TREE: Liver is diffusely hypoattenuating suggesting diffuse hepatic steatosis. No suspicious or concerning liver lesion seen. There is a coarse calcification. The gallbladder is unremarkable with no evidence of radiopaque gallstones, gallbladder wall thickening, or obvious pericholecystic inflammatory changes. PANCREAS: Unremarkable. SPLEEN: Unremarkable. ADRENAL GLANDS: Unremarkable. KIDNEYS AND URETERS: The kidneys are normal in size, shape, and attenuation. No hydronephrosis, hydroureter, or calculi seen. No perinephric stranding. BLADDER: Unremarkable. GASTROINTESTINAL TRACT: Stomach and small bowel are nondilated. Normal appendix. Scattered colonic diverticulosis. No evidence of colitis or diverticulitis. ABDOMINAL WALL: Small fat-containing umbilical hernia. LYMPH NODES: Normal. VASCULAR: Normal caliber abdominal aorta. PELVIC VISCERA: Normal CT appearance of the cervix, uterus, and ovaries for age. OSSEOUS STRUCTURES: No acute or suspicious osseous abnormality. Chronic bilateral L5 pars defects. CT/CT abdomen pelvis w IV con IMPRESSION: No acute CT findings. Findings consistent with diffuse hepatic steatosis. Fleischner guidelines were followed.
[2022-06-09 14:49] VITALS: BP 133/76; PULSE 79; RESP 16; TEMP 36.6; O2SAT 99; BMI 40.3
--- NOTE | 2022-06-09 14:49 | ED_ITS ---
HPI - Abdominal Pain General Chief Complaint: Urogenital-Female <ANGEL Dumont - Last Filed: 06/09/22 14:53> Stated Complaint: Back Pain ? UTI <ANGEL Dumont - Last Filed: 06/09/22 14:53> Time Seen by Provider: 06/09/22 17:57 <NAGEL Dumont - Last Filed: 06/09/22 14:53> Source: patient <Nilam Jack NP - Last Filed: 06/10/22 01:17> Mode of arrival: ambulatory <Nilam Jack NP - Last Filed: 06/10/22 01:17> Limitations: no limitations <Nilam Jack NP - Last Filed: 06/10/22 01:17> History of Present Illness HPI narrative: 21-year-old female presents with 3 days of increasingly worsening right flank pain, pelvic pressure, and fatigue. She has reported to have kidney stones in the past and states that this pain feels the same. She has taken [id number] medications with poor effect. She denies fevers, chills, but states to be nauseous as having a difficult time eating. <Nilam Jack NP - Last Filed: 06/10/22 01:17> MD elicited complaint: abdominal pain and flank pain <Nilam Jack NP - Last Filed: 06/10/22 01:17> Pertinent past history: kidney stones <Nilam Jack NP - Last Filed: 06/10/22 01:17> Onset (ago): day(s) (3) <Nilam Jack NP - Last Filed: 06/10/22 01:17> Pain Consistency: colicky <Nilam Jack NP - Last Filed: 06/10/22 01:17> Location: RLQ, LLQ and R flank <Nilam Jack NP - Last Filed: 06/10/22 01:17> Severity: moderate <Nilam Jack NP - Last Filed: 06/10/22 01:17> Pain scale (0-10): 6 <Nilam Jack NP - Last Filed: 06/10/22 01:17> Quality: aching and sharp <Nilam Jack NP - Last Filed: 06/10/22 01:17> Radiation: LLQ and RLQ <Nilam Jack NP - Last Filed: 06/10/22 01:17> Migration to: no migration <Nilam Jack NP - Last Filed: 06/10/22 01:17> Exacerbating factors: movement <Nilam Jack NP - Last Filed: 06/10/22 01:17> Relieving factors: nothing <Nilam Jack NP - Last Filed: 06/10/22 01:17> Associated symptoms: nausea <Nilam Jcak NP - Last Filed: 06/10/22 01:17> Treatments prior to arrival: NSAIDs and antacids <Nilam Jack NP - Last Filed: 06/10/22 01:17> Related Data Patient : No <Nilam Jack NP - Last Filed: 06/10/22 01:17> Home Medications: Previous Rx's Medication Instructions Recorded acetaminophen 500 mg tablet 500 mg PO Q6H PRN pain or fever 12/22/20 (Tylenol Extra Strength) #20 tabs cyclobenzaprine 5 mg tablet 5 mg PO Q8H PRN pain (scale score 12/22/20 7-10) 5 days #14 tabs lidocaine 5 % topical patch 1 patch topical DAILY PRN pain #30 12/22/20 (Lidoderm) ea naproxen 500 mg tablet 500 mg PO BID PRN pain 10 days #20 12/22/20 tabs cyclobenzaprine 10 mg tablet 10 mg PO TID PRN muscle spasm #14 07/31/21 tabs ondansetron 4 mg disintegrating 4 mg PO Q8H PRN nausea and 07/31/21 tablet vomiting #20 tabs pramoxine 1 % topical foam 1 appl ME BID #15 grams 08/24/21 (Proctofoam) <ANGEL Dumont - Last Filed: 06/09/22 14:53> Allergies/Adverse Reactions: Allergies Allergy/AdvReac Type Severity Reaction Status Date / Time No Known Allergies Allergy Verified 06/09/22 14:48 <ANGEL Dumont - Last Filed: 06/09/22 14:53> Review of Systems Review of Systems Constitutional: No Fever, No Chills ENT/Mouth: No sore throat Cardiovascular: No Chest Pain, No SOB Respiratory: No Cough, No Sputum, No Wheezing Gastrointestinal: positive Nausea, no Vomiting, No Diarrhea, positive abdominal pain Genitourinary: No Dysuria, no urinary frequency no Hematuria, positive Flank Pain, no hesitancy Musculoskeletal: No joint pain, No Myalgias Skin: No Skin Lesions, No rash Neuro: No Weakness, No Numbness, No Headache Psych: No Anxiety/Panic, No Depression <Nilam Jack NP - Last Filed: 06/10/22 01:17> Yes all other systems are reviewed and are negative <Nilam Jack NP - Last Filed: 06/10/22 01:17> PMFSH Past Medical History Attestation statement: The following information was validated with the patient. <Nilam Jack NP - Last Filed: 06/10/22 01:17> Source: old records reviewed <Nilam Jack NP - Last Filed: 06/10/22 01:17> Medical History: Medical History No known health problems PCOS (polycystic ovarian syndrome) <ANGEL Dumont - Last Filed: 06/09/22 14:53> Surgical History: Surgical History H/O dilation and curettage H/O knee surgery <ANGEL Dumont - Last Filed: 06/09/22 14:53> Social History Social History: Social History Alcohol intake: never Patient Tobacco Use Status: Never used Tobacco Advance Directives: No Advance Directives Information Provided: No <ANGEL Dumont Last Filed: 06/09/22 14:53> Physical Exam ED Vital Signs: Vital Signs - 24 hr 06/09/22 14:49 06/09/22 21:30 Temperature 97.9 F 98.3 F Pulse Rate 79 72 Respiratory Rate 16 14 Blood Pressure 133/76 112/65 Pulse Oximetry 99 98 Oxygen Delivery Method Room Air Room Air BMI result Body Mass Index 40.3 <ANGEL Dumont - Last Filed: 06/09/22 14:53> Vital Signs - 24 hr 06/09/22 14:49 06/09/22 21:30 Temperature 97.9 F 98.3 F Pulse Rate 79 72 Respiratory Rate 16 14 Blood Pressure 133/76 112/65 Pulse Oximetry 99 98 Oxygen Delivery Method Room Air Room Air BMI result Body Mass Index 40.3 <Nilma Jack NP - Last Filed: 06/10/22 01:17> Appearance: Alert. Oriented X3. Mild distress. Eyes: Pupils equal, round and reactive to light. Sclera nonicteric. ENT: Pharynx normal. Moist mucous membranes. Neck: Normal inspection. Neck supple. CVS: Normal heart rate and rhythm. Pulses normal. Respiratory: No respiratory distress. Breath sounds normal. Abdomen: Soft and right lower quadrant and left lower quadrant abdominal pain with right-sided CVA tenderness. Skin: Skin warm and dry. Normal skin color. Normal skin turgor. Extremities: No lower extremity edema. Gait well-balanced well coordinated. Neuro: No motor deficit. No sensory deficit. Cranial nerves 2-12 intact. <Nilam Jack NP - Last Filed: 06/10/22 01:17> Course Course Course Narrative: RME--89yo F w/PMHx PCOS & renal stones c/o urinary pressure, incomplete emptying and R flank/low back pain x weeks. Patient was seen in our ED last night however eloped after RME. Lab/UA unremarkable Mild right CVA tenderness noted, abdomen soft nontender. Labs, UA, , renal ultrasound ordered in triage as well as p.o. Flexeril/Lidoderm patch <ANGEL Dumont - Last Filed: 06/09/22 14:53> RME--89yo F w/PMHx PCOS & renal stones c/o urinary pressure, incomplete emptying and R flank/low back pain x weeks. Patient was seen in our ED last night however eloped after RME. Lab/UA unremarkable Mild right CVA tenderness noted, abdomen soft nontender. Labs, UA, , renal ultrasound ordered in triage as well as p.o. Flexeril/Lidoderm patch 21-year-old female presents with 3 days of right-sided flank pain radiating to her right lower left lower and pelvic. She feels pressure in the pelvic area almost like somebody is pushing on her from the inside. She states to feel nauseous, and presented to the emergency department at this facility yesterday, but was in the waiting room for several hours and left without being seen. Patient states the pain has not gotten any better, labs drawn while she was in the emergency department waiting room, which are unremarkable. Considering patient's presentation, and CVA tenderness with history of kidney stones, will order CT abdomen pelvis. 21:00 CT scan abdomen pelvis negative for acute findings, findings consistent with diffuse hepatic steatosis. Finding of an L5 pars defect. Will have patient follow-up with Gastroenterology. Patient verbalized understanding of and agrees to plan of care discharge home. Verbalized understanding of signs and symptoms indicating need for emergent intervention. <Nilam Jack NP - Last Filed: 06/10/22 01:17> Medical Decision Making Medical Decision Making Differential Diagnoses: Differential diagnosis (Nephrolithiasis, cholelithiasis, cholecystitis, pyelonephritis, diverticulitis) <Nilam Jack NP - Last Filed: 06/10/22 01:17> Consideration of admission/observation: Consideration of Admission/Observation (If patient has any adverse findings in her CT scan admission will be considered) <Nilam Jack NP - Last Filed: 06/10/22 01:17> Lab Attestation: I reviewed the patient's lab results. <Nilam Jack NP - Last Filed: 06/10/22 01:17> Discussion of test interpretation with radiology: Discussion of test interpretation with radiology FINDINGS: LUNG BASES: The visualized lung bases are unremarkable.? LIVER, GALLBLADDER, AND BILIARY TREE: Liver is diffusely hypoattenuating suggesting diffuse hepatic steatosis. No suspicious or concerning liver lesion seen. There is a coarse calcification. The gallbladder is unremarkable with no evidence of radiopaque gallstones, gallbladder wall thickening, or obvious pericholecystic inflammatory changes.? PANCREAS: Unremarkable.? SPLEEN: Unremarkable.? ADRENAL GLANDS: Unremarkable.? KIDNEYS AND URETERS: The kidneys are normal in size, shape, and attenuation. No hydronephrosis, hydroureter, or calculi seen. No perinephric stranding. ? BLADDER: Unremarkable.? GASTROINTESTINAL TRACT: Stomach and small bowel are nondilated. Normal appendix. Scattered colonic diverticulosis. No evidence of colitis or diverticulitis.? ABDOMINAL WALL: Small fat-containing umbilical hernia.? LYMPH NODES: Normal. VASCULAR: Normal caliber abdominal aorta. PELVIC VISCERA: Normal CT appearance of the cervix, uterus, and ovaries for age.? OSSEOUS STRUCTURES: No acute or suspicious osseous abnormality. Chronic bilateral L5 pars defects.? CT/CT abdomen pelvis w IV con IMPRESSION: No acute CT findings. ? Findings consistent with diffuse hepatic steatosis.? ? Fleischner guidelines were followed. EXAMINATION: US RETROPERITONEAL LIMITED (RENAL ONLY) CLINICAL INFORMATION: Right flank pain. COMPARISON: None TECHNIQUE: Multiple 2-D grayscale and Doppler ultrasound images of the abdomen were obtained. FINDINGS: RIGHT KIDNEY: 11.1 x 4.1 x 5.1 cm (SAG x AP x TRV). The kidney is normal in size, contour, and echogenicity. Renal cortical thickness is normal. No calculi or focal parenchymal lesions. No hydronephrosis. LEFT KIDNEY: 11.4 x 4.8 x 4.7 cm (SAG x AP x TRV). The kidney is normal in size, contour, and echogenicity. Renal cortical thickness is normal. No calculi or focal parenchymal lesions. No hydronephrosis. OTHER: Incidental note of heterogeneous hypoechoic mass in the liver with anteriorly in the right hepatic lobe measuring 9.1 x 4.6 x 8.9 cm. Doppler showed no significant hypervascularity. US/US renal BI IMPRESSION: ? 1. No significant renal abnormality. 2. Incidental hypoechoic mass in the right hepatic lobe. Given the size, this is nonspecific and could represent focal fatty sparing in the setting of mild steatosis, but a mass cannot be excluded. Further evaluation with contrast-enhanced abdominal MRI is recommended for better characterization. ? <Nilam Jack NP - Last Filed: 06/10/22 01:17> Medications Administered Discontinued Medications Generic Name Dose Route Start Last Admin Trade Name Freq PRN Reason Stop Dose Admin Cyclobenzaprine HCl 5 mg 06/09/22 14:49 06/09/22 18:24 Cyclobenzaprine Hcl 5 Mg Tablet PO 06/09/22 14:50 Not Given ONCE ONE Iohexol 100 ml 06/09/22 19:24 06/09/22 19:25 Iohexol 350 Mg/Ml 100 Ml Infus..Btl IV 06/09/22 19:25 85 ml ONCE ONE Administration Ketorolac Tromethamine 30 mg 06/09/22 18:24 06/09/22 18:57 Ketorolac Tromethamine 30 Mg/Ml Vial IVPUSH 06/09/22 18:25 30 mg ONCE ONE Administration <ANGEL Dumont - Last Filed: 06/09/22 14:53> Medications Administered Discontinued Medications Generic Name Dose Route Start Last Admin Trade Name Jo PRN Reason Stop Dose Admin Cyclobenzaprine HCl 5 mg 06/09/22 14:49 06/09/22 18:24 Cyclobenzaprine Hcl 5 Mg Tablet PO 06/09/22 14:50 Not Given ONCE ONE Iohexol 100 ml 06/09/22 19:24 06/09/22 19:25 Iohexol 350 Mg/Ml 100 Ml Infus..Btl IV 06/09/22 19:25 85 ml ONCE ONE Administration Ketorolac Tromethamine 30 mg 06/09/22 18:24 06/09/22 18:57 Ketorolac Tromethamine 30 Mg/Ml Vial IVPUSH 06/09/22 18:25 30 mg ONCE ONE Administration <Nilam Jack NP - Last Filed: 06/10/22 01:17> Discharge Plan Discharge Clinical Impression: Abdominal pain, Hepatic steatosis, Pars defect of lumbar spine <ANGEL Dumont - Last Filed: 06/09/22 14:53> Patient Disposition: Home, Self-Care <ANGEL Dumont - Last Filed: 06/09/22 14:53> Instructions: Liver Disease Diet (DC), Acute Abdominal Pain (ED), Non-Alcoholic Fatty Liver Disease (ED) <ANGEL Dumont - Last Filed: 06/09/22 14:53> Additional Instructions: You were evaluated for abdominal pain. CT scan of abdomen pelvis indicates hepatic steatosis, which is a non alcoholic fatty liver disease. Please follow-up with Gastroenterology. I have referred you to Dr. Haque. Please call and request an appointment. CT scan indicates an L5 pars defect, which is a defect consistent with fatigue stress fracture involving the lower spine. Please follow-up with [facility]. Offices located in [facility], and [place]. [phone]. Alternate Tylenol 650 mg every 6 hours as needed and Motrin 600 mg every 6 hours as needed for pain management. Write down what time you take these medications to prevent accidental overdose. Thank you for choosing this emergency department for evaluation. Please follow-up with primary care physician as needed. Return to the emergency department for any new, concerning, or worsening symptoms. <ANGEL Dumont - Last Filed: 06/09/22 14:53> Prescriptions: No Action acetaminophen [Tylenol Extra Strength] 500 mg tablet 500 mg PO Q6H PRN (Reason: pain or fever) Qty: 20 0RF lidocaine [Lidoderm] 5 % adhesive patch,medicated 1 patch topical DAILY MDD remove after 12 hours PRN (Reason: pain) Qty: 30 0RF Rx Instructions: leave on most painful area for up to 12 hrs naproxen 500 mg tablet 500 mg PO BID PRN (Reason: pain) 10 Days Qty: 20 0RF cyclobenzaprine 5 mg tablet 5 mg PO Q8H PRN (Reason: pain (scale score 7-10)) 5 Days Qty: 14 0RF cyclobenzaprine 10 mg tablet 10 mg PO TID PRN (Reason: muscle spasm) Qty: 14 0RF ondansetron 4 mg tablet,disintegrating 4 mg PO Q8H PRN (Reason: nausea and vomiting) Qty: 20 0RF pramoxine [Proctofoam] 1 % foam 1 appl ME BID Qty: 15 0RF <ANGEL Dumont - Last Filed: 06/09/22 14:53> Referrals: Andrew Haque [Physician] - 2 weeks (Hepatic steatosis) <ANGEL Dumont - Last Filed: 06/09/22 14:53> Interventions: ED Discharge Assessment Last Done: 06/09/22 21:34 <ANGEL Dumont - Last Filed: 06/09/22 14:53> Discharge Date/Time: 06/09/22 21:35 <ANGEL Dumont - Last Filed: 06/09/22 14:53>
[2022-06-09 15:14] LABS: MANUAL DIFF FLAG NO
[2022-06-09 15:19] LABS: Basophils Absolute Auto 0.1 X10*3/uL (0.0-0.2); Basophils Percent Auto 0.8 % (0-2); Eosinophils Absolute Auto 0.2 X10*3/uL (0.0-0.4); Eosinophils Percent Auto 2.4 % (0-4); Hematocrit 42.2 % (37.0-47.0); Hemoglobin 13.7 g/dl (12.0-16.0); Imm Gran Abs Auto 0.04 X10*3/uL (0.00-0.03); Imm Gran Pct Auto 0.4 % (0.0-0.4); Lymphocytes Absolute Auto 2.4 X10*3/uL (1.2-4.9); Lymphocytes Percent Auto 23.7 % (20-40); Mean Corpuscular HGB Conc 32.5 g/dl (31.0-35.0); Mean Corpuscular Hemoglobin 26.8 pg (27.0-33.0); Mean Corpuscular Volume 82.6 fL (80.0-98.0); Mean Platelet Volume 11.3 fL (9.4-12.3); Monocytes Absolute Auto 0.7 X10*3/uL (0.1-1.2); Monocytes Percent Auto 7.1 % (2-11); Neutrophils Absolute Auto 6.6 x10*3/uL (2.0-8.3); Neutrophils Percent Auto 65.6 % (45-73); Platelet Count 313 X10*3/uL (160-400); Red Blood Count 5.11 X10*6/uL (4.20-5.50); Red Cell Distribution Width 13.5 % (11.0-16.0); White Blood Count 10.1 X10*3/uL (4.8-10.8)
[2022-06-09 15:22] LABS: UPreg QC Valid YES; Urine Pregnancy NEGATIVE (NEGATIVE)
[2022-06-09 15:23] LABS: Appearance Urine Cloudy; Color Urine Yellow; Glucose Urine UA Negative (Negative); Leukocyte Esterase Urine Negative (Negative); Nitrite Urine Negative (Negative); Specific Gravity - Urine 1.025 (1.005-1.025); Urine Blood Negative (Negative); Urine Ketones Negative (Negative); Urine Protein Negative (Neg-Trace)
[2022-06-09 15:37] LABS: Alanine Aminotransferase 35 U/L (0-31); Albumin Level 4.3 g/dL (3.5-5.0); Alkaline Phosphatase 85 U/L (39-117); Anion Gap 11 (12-20); Aspartate Amino Transferase 22 U/L (5-31); Bilirubin Direct 0.3 mg/dL (0.0-0.5); Bilirubin Total 0.9 mg/dL (0.0-1.0); Blood Urea Nitrogen 15 mg/dL (9-16); Calcium 9.5 mg/dL (8.4-10.2); Carbon Dioxide 27 mmol/L (22-29); Chloride 106 mmol/L (96-108); Estimated Glomerular Filt Rate > 60; Glucose Random 76 mg/dL (60-115); Lipase 25 U/L (8-78); Magnesium 1.9 mg/dL (1.6-2.6); Potassium 4.5 mmol/L (3.3-5.1); Sodium 139 mmol/L (135-145); Total Protein 7.3 g/dL (6.5-8.0)
[2022-06-09] MEDS: Ketorolac Tromethamine 30 MG/ML VIAL IVPUSH (18:57)
[2022-06-09 19:19] LABS: Influenza A PCR NEGATIVE (Negative); Influenza B PCR NEGATIVE (Negative); Resp Syncy Virus RNA Qual PCR NEGATIVE (Negative); SARS COV2 PCR INHOUSE NEGATIVE (Negative)
[2022-06-09] MEDS: iohexoL 350 MG/ML 100 ML INFUS..BTL IV (19:25)
[2022-06-09 21:30] VITALS: BP 112/65; PULSE 72; RESP 14; TEMP 36.8; O2SAT 98
== END 2022-06-09 21:35 | disposition home or self-care (01) ==
PROVIDERS: Nurse Practitioner Family; Physician Assistant; Emergency Provider Emergency Medicine; PCP Internal Medicine
DX: M54.50 Low back pain, unspecified (principal); K76.0 Fatty (change of) liver, not elsewhere classified; R10.31 Right lower quadrant pain; R10.32 Left lower quadrant pain; Z20.822 Contact with and (suspected) exposure to COVID-19; Z79.899 Other long term (current) drug therapy
CPT/HCPCS: 0241U; 36415; 74177; 76775; 80048; 80076; 81003; 81025; 83690; 83735; 85025; 99283; 99284; J1885; Q9967

== ENCOUNTER 2024-09-01 12:37 | Emergency (ER) | payer OTHER, SELFPAY ==
--- NOTE | ~2024-09-01 | CT_ITS ---
EXAMINATION: CT HEAD WITHOUT CONTRAST CLINICAL INFORMATION: Dizziness. COMPARISON: CT brain 07/31/2021 TECHNIQUE: Contiguous axial imaging was performed from the skull base to vertex without intravenous administration of contrast. This CT examination was performed using dose optimization techniques as appropriate, variously including the following: *Automated exposure control *Adjustment of mA and/or kV according to patient size (this includes techniques or standardized protocols for targeted exams where dose is matched to indication/reason for exam; i.e. extremities or head) *Use of iterative reconstruction technique DLP: 734. FINDINGS: There is no acute intra-axial, extra-axial bleed, masses or midline shift. There is no acute infarction evolution. There is no edema. The cain to white matter differentiation is maintained normal. The lateral ventricles are symmetrical in size and configuration without enlargement. Bone windows reveal no calvarial abnormality. There is no scalp soft tissue abnormality. There is mild mucoperiosteal thickening left maxillary and right sphenoid sinus. There is mild deviation of nasal septum to the right. CT/CT head/brain wo IV con IMPRESSION: No acute intracranial process seen. Electronically signed by: Mario Noriega MD 09/01/2024 03:59 PM EST
[2024-09-01 13:39] VITALS: BP 141/72; PULSE 108; RESP 20; TEMP 36.8; O2SAT 97; BMI 45.2
--- NOTE | 2024-09-01 13:39 | ED_ITS ---
HPI - General Adult General Chief complaint: Headache Stated complaint: dizzy, headache, shaky Time Seen by Provider: 09/01/24 20:15 Source: patient Mode of arrival: ambulatory Limitations: no limitations History of Present Illness ED Provider: Reta Ahuja PA-C HPI narrative: Patient is a 23 year old assigned female at with a history of migraines for which she used to follow with a neurologist, presenting to the emergency department today with dizziness, nausea, and fogginess that is different than her usual. Patient states that over the last few days she has had a different kind of headache than previously with associated dizziness and nausea. Patient denies any dizziness, lightheadedness, abdominal pain, nausea, vomiting, fever, chills, blurry vision, double vision, loss of vision, chest pain, difficulty breathing, shortness of breath, back pain, night sweats, pain with urination, increased urinary frequency, increased urinary urgency, blood in her urine or stool, syncope or a near syncopal episode, recent trauma or falls, bowel incontinence, bladder incontinence, or any other complaints at this time. Onset (ago): day(s) Relieving factors: none Exacerbating factors: none Associated symptoms: denies other symptoms Treatments prior to arrival: none Related Data Previous Rx's ?Medication ?Instructions ?Recorded acetaminophen 500 mg tablet 500 mg PO Q6H PRN pain or fever 12/22/20 (Tylenol Extra Strength) #20 tabs cyclobenzaprine 5 mg tablet 5 mg PO Q8H PRN pain (scale score 12/22/20 7-10) 5 days #14 tabs lidocaine 5 % topical patch 1 patch topical DAILY PRN pain #30 12/22/20 (Lidoderm) ea naproxen 500 mg tablet 500 mg PO BID PRN pain 10 days #20 12/22/20 tabs cyclobenzaprine 10 mg tablet 10 mg PO TID PRN muscle spasm #14 07/31/21 tabs ondansetron 4 mg disintegrating 4 mg PO Q8H PRN nausea and 07/31/21 tablet vomiting #20 tabs pramoxine 1 % topical foam 1 appl MO BID #15 grams 08/24/21 (Proctofoam) Allergies Allergy/AdvReac Type Severity Reaction Status Date / Time No Known Allergies Allergy Verified 09/01/24 13:40 Review of Systems 2 Constitutional: Constitutional: Reports no additional constitutional complaints, Denies chills, Denies fever(s), Reports headache(s) and Denies night sweats Eyes: Eyes: Reports no additional eye complaints, Denies blurry vision, Denies change in vision, Denies diplopia, Denies eye discharge, Denies loss of vision and Denies eye pain ENT: Reports dizziness and Reports headache(s) Cardiovascular: Cardiovascular: Reports no additional cardiovascular complaints, Denies chest pain, Denies lightheadedness, Denies Loss of Consciousness and Denies dyspnea Respiratory: Respiratory: Reports no additional respiratory complaints and Denies dyspnea Gastrointestinal: Gastrointestinal: Reports no additional gastrointestinal complaints, Denies abdominal pain, Denies melena, Denies hematochezia, Denies change in bowel habits, Denies change in stool character and Reports nausea Genitourinary: Genitourinary: Denies hematuria, Denies urinary frequency, Denies dysuria, Denies urinary incontinence, Denies urinary hesitancy and Denies urinary urgency Musculoskeletal: Musculoskeletal: Reports no additional musculoskeletal complaints, Denies numbness and Denies tingling Neurologic: Reports dizziness, Reports headache(s), Denies loss of vision, Denies numbness and Denies tingling Psychiatric: Psychiatric: Reports no additional psychiatric complaints Endocrine: Endocrine: Reports no additional endocrine complaints Hematologic/Lymphatic: Hematologic/Lymphatic: Reports no additional hematologic/lymphatic complaints Allergic/Immunologic: Allergic/Immunologic: Reports no additional allergic/immunologic complaints [facility] Past Medical History Attestation statement: The following information was validated with the patient. Source: old records reviewed and nursing notes reviewed Medical History PCOS (polycystic ovarian syndrome) No known health problems Surgical History H/O dilation and curettage H/O knee surgery Social History Social History Alcohol intake: never Patient Tobacco Use Status: Never used Tobacco Advance Directives: No Advance Directives Information Provided: No Physical Exam ED Vital Signs: Vital Signs - 24 hr 09/01/24 13:39 09/01/24 20:30 Temperature 98.3 F 98.3 F Pulse Rate 108 H 81 Respiratory Rate 20 18 Blood Pressure 141/72 H 139/78 Pulse Oximetry 97 98 Oxygen Delivery Method Room Air Room Air BMI result Body Mass Index 45.2 Const General: cooperative, no acute distress, alert and awake Nutritional Appearance: well nourished Orientation/consciousness: patient oriented x3 Limitations: no limitations HENMT Head: Yes normal to inspection and Yes atraumatic Ears: hearing grossly normal bilaterally and external ears normal General nose exam: Normal external nose present, no nasal discharge noted and no epistaxis Face and sinus: Yes normal facial exam, No abrasion and No laceration Mouth: Normal oral and palatal mucosa present, no drooling and no muffled voice Eyes General: appearance normal, both eyes and all related structures Periorbital: periorbital findings normal Eyelids: Yes eyelids normal Conjunctivae: conjunctivae normal Pupils: Equal, round and reactive pupils present EOM: EOMs intact bilaterally Neck Neck: Yes normal visual inspection, Yes full ROM and Yes no lymphadenopathy Chest Chest palpation & inspection: normal inspection of the chest Resp Effort & Inspection: normal respiratory effort and able to speak in complete sentences GI Inspection: Yes normal to inspection Neuro General: patient oriented x3, moves all extremities and CN's II-XI intact bilaterally Cranial nerves: Yes Equal, round and reactive pupils present Cognition (Neuro): normal cognition Extrem General: Yes normal to inspection, Yes full ROM and Yes capillary refill normal Psych Appearance: grossly normal Mental Status: mental status grossly normal Affect: normal affect Attitude: cooperative Thought process: Normal thought process present Thought content: Normal thought content present Insight: Good insight present (Psych) Course Course Course Narrative: RME performed by Reta Ahuja PA-C. Patient is a 23 year old assigned female at presenting to the emergency department with a persistent headache. Patient states over the last few months she has been dealing with headaches but over the last few days she has had intermittent dizziness / headaches that feel different. Detailed physical exam and review of systems are deferred to the repair specialist. Labs, imaging, and swabs ordered. Patient placed back in the waiting room pending room availability and results. Medical Decision Making Medical Decision Making MDM Narrative: Patient is a 23 year old assigned female at with a history of migraines for which she used to follow with a neurologist, presenting to the emergency department today with dizziness, nausea, and fogginess that is different than her usual. Patient's physical exam was unremarkable. Patient's blood work was unremarkable. Patient's EKG was unremarkable. Patient's head CT showed no acute process. I explained my physical exam findings as well as all test results to the patient. I answered all questions asked by the patient. I stressed the importance of the patient taking her medication as directed (either prescribed or as the over the counter packaging recommends). I stressed the importance of the patient following up with her primary care provider and a neurologist. I stressed the importance of the patient returning to the emergency department immediately if her symptoms were to worsen or if she were to develop any dizziness, shortness of breath, difficulty breathing, chest pain, blurry vision, loss of vision, nausea, vomiting, abdominal pain, fever, chills, back pain, or any other complaints. Patient verbalized agreement and understanding with this treatment plan and discharge. Differential Diagnosis Differential Diagnoses: The differential diagnosis associated with the presentation includes Headache Migraine Dizziness Admission/Observation Consideration of admission/observation: Escalation of care including admission/observation considered Patient would have been admitted to the hospital had her work up had any findings where hospital admission was appropriate and her clinical presentation warranted hospital admission. Lab Data [facility] Lab Attestation statement: I reviewed the patient's lab results. My interpretation of these results are in the [facility] Rationale portion of this note. 09/01/24 13:56 09/01/24 13:55 Labs: Lab Results 09/01/24 09/01/24 Range/Units 13:55 13:56 WBC 10.1 (4.8-10.8) X10*3/uL RBC 5.39 (4.20-5.50) X10*6/uL Hgb 14.7 (12.0-16.0) g/dl Hct 44.6 (37.0-47.0) % MCV 82.7 (80.0-98.0) fL MCH 27.3 (27.0-33.0) pg MCHC 33.0 (31.0-35.0) g/dl RDW 13.3 (11.0-16.0) % Plt Count 331 (160-400) X10*3/uL MPV 11.3 (9.4-12.3) fL Immature Gran % (Auto) 0.3 (0.0-0.4) % Neut % (Auto) 63.5 (45-73) % Lymph % (Auto) 25.1 (20-40) % [place] % (Auto) 6.5 (2-11) % Eos % (Auto) 3.6 (0-4) % Baso % (Auto) 1.0 (0-2) % Lymph # (Auto) 2.6 (1.2-4.9) X10*3/uL [place] # (Auto) 0.7 (0.1-1.2) X10*3/uL Eos # (Auto) 0.4 (0.0-0.4) X10*3/uL Baso # (Auto) 0.1 (0.0-0.2) X10*3/uL Abs Immat Gran (auto) 0.03 (0.00-0.03) X10*3/uL Absolute Neuts (auto) 6.4 (2.0-8.3) x10*3/uL Absolute Nucleated RBC 0.000 (0.0-0.012) X10*3/uL Nucleated RBC % (auto) 0.0 (0.0-0.2) /100WBC PT 10.9 (10.9-12.4) SEC INR 0.9 (0.9-1.1) APTT 35.3 (26.0-36.8) SEC Sodium 141 (135-145) mmol/L Potassium 4.2 (3.3-5.1) mmol/L Chloride 108 (96-108) mmol/L Carbon Dioxide 21 L (22-29) mmol/L Anion Gap 16 (12-20) BUN 14 (9-16) mg/dL Creatinine 0.78 (0.5-1.4) mg/dL Estim Creat Clear Calc 150.3 Estimated GFR > 60 Random Glucose 111 (60-115) mg/dL Calcium 9.7 (8.4-10.2) mg/dL Magnesium 1.8 (1.6-2.6) mg/dL Total Bilirubin 1.1 H (0.0-1.0) mg/dL AST 45 H (5-31) U/L ALT 65 H (0-31) U/L Alkaline Phosphatase 76 (39-117) U/L Troponin I High Sens < 2.7 (<3.5-17.0) ng/L Total Protein 8.4 H (6.5-8.0) g/dL Albumin 4.4 (3.5-5.0) g/dL Influenza Type A (PCR) NEGATIVE (Negative) Influenza Type B (PCR) NEGATIVE (Negative) RSV RNA Qual (PCR) NEGATIVE (Negative) SARS-CoV-2 RNA (RT-PCR) NEGATIVE (Negative) Independent Interpretation I performed an independent interpretation of an: EKG and CT Scan Interpretation: My interpretation is in agreement with the radiologist's impression of this imaging study. L Report Number: [id number]: Total DLP = 734.00 mGy-cm EXAMINATION: CT HEAD WITHOUT CONTRAST CLINICAL INFORMATION: Dizziness. COMPARISON: CT brain 07/31/2021 TECHNIQUE: Contiguous axial imaging was performed from the skull base to vertex without intravenous administration of contrast. This CT examination was performed using dose optimization techniques as appropriate, variously including the following: *Automated exposure control *Adjustment of mA and/or kV according to patient size (this includes techniques or standardized protocols for targeted exams where dose is matched to indication/reason for exam; i.e. extremities or head) *Use of iterative reconstruction technique DLP: 734. FINDINGS: There is no acute intra-axial, extra-axial bleed, masses or midline shift. There is no acute infarction evolution. There is no edema. The cain to white matter differentiation is maintained normal. The lateral ventricles are symmetrical in size and configuration without enlargement. Bone windows reveal no calvarial abnormality. There is no scalp soft tissue abnormality. There is mild mucoperiosteal thickening left maxillary and right sphenoid sinus. There is mild deviation of nasal septum to the right. CT/CT head/brain wo IV con IMPRESSION: No acute intracranial process seen. Electronically signed by: Mario Noriega MD 09/01/2024 03:59 PM [facility] Dictated By: Mario Noriega MD Signed By: Electronically signed by Mario Noriega MD 09/01/24 1559 I independently interpreted this EKG and am in agreement with the below findings: Vent. Rate: 101 BPM Atrial Rate: 101 BPM P-R Int: 132 ms QRS Dur: 78 ms QT Int: 320 ms P-R-T Axes: 32 16 -3 degrees QTcB Int: 414 ms Sinus tachycardia Otherwise normal ECG When compared with ECG of 22-Dec-2021 16:11, No significant change was found Referred By: Reta Ahuja Electronically Signed By: CARRILLO AMAYA MD Dictated By: Carrillo Amaya MD Signed By: Electronically signed by Carrillo Amaya MD 09/01/24 5013 Radiology Impression Discussion of test interpretation with radiology: I have reviewed the radiologist's reading. Discharge Plan Discharge Clinical Impression: Dizziness, Headache Patient Disposition: Home, Self-Care Instructions: Dizziness (ED), General Headache (ED) Additional Instructions: Follow up with your primary care provider and a neurologist. Return to the emergency department immediately if your symptoms worsen or if you develop any dizziness, shortness of breath, difficulty breathing, chest pain, blurry vision, loss of vision, nausea, vomiting, abdominal pain, fever, chills, back pain, or any other complaints. Prescriptions: No Action acetaminophen [Tylenol Extra Strength] 500 mg tablet 500 mg PO Q6H PRN (Reason: pain or fever) Qty: 20 0RF lidocaine [Lidoderm] 5 % adhesive patch,medicated 1 patch topical DAILY MDD remove after 12 hours PRN (Reason: pain) Qty: 30 0RF Rx Instructions: leave on most painful area for up to 12 hrs naproxen 500 mg tablet 500 mg PO BID PRN (Reason: pain) 10 Days Qty: 20 0RF cyclobenzaprine 5 mg tablet 5 mg PO Q8H PRN (Reason: pain (scale score 7-10)) 5 Days Qty: 14 0RF cyclobenzaprine 10 mg tablet 10 mg PO TID PRN (Reason: muscle spasm) Qty: 14 0RF ondansetron 4 mg tablet,disintegrating 4 mg PO Q8H PRN (Reason: nausea and vomiting) Qty: 20 0RF pramoxine [Proctofoam] 1 % foam 1 appl MO BID Qty: 15 0RF Referrals: [facility] [place] Neuro/Sleep [Provider Group] (Call to establish and follow up with a neurologist. ) Romy Peraza MD [Primary Care Provider] - Interventions: ED Discharge Assessment Last Done: 09/01/24 20:30 Discharge Date/Time: 09/01/24 20:31 Print Language: Macedonian
--- NOTE | 2024-09-01 13:41 | ECG_ITS ---
Test Reason : dizziness Blood Pressure : */* mmHG Vent. Rate : 101 BPM Atrial Rate : 101 BPM P-R Int : 132 ms QRS Dur : 78 ms QT Int : 320 ms P-R-T Axes : 32 16 -3 degrees QTcB Int : 414 ms Sinus tachycardia Otherwise normal ECG When compared with ECG of 22-Dec-2021 16:11, No significant change was found Referred By: Reta Ahuja Electronically Signed By: MATT AMAYA MD
[2024-09-01 14:02] LABS: MANUAL DIFF FLAG NO
[2024-09-01 14:03] LABS: Basophils Absolute Auto 0.1 X10*3/uL (0.0-0.2); Eosinophils Absolute Auto 0.4 X10*3/uL (0.0-0.4); Eosinophils Percent Auto 3.6 % (0-4); Hematocrit 44.6 % (37.0-47.0); Hemoglobin 14.7 g/dl (12.0-16.0); Imm Gran Abs Auto 0.03 X10*3/uL (0.00-0.03); Imm Gran Pct Auto 0.3 % (0.0-0.4); Lymphocytes Absolute Auto 2.6 X10*3/uL (1.2-4.9); Lymphocytes Percent Auto 25.1 % (20-40); Mean Corpuscular Hemoglobin 27.3 pg (27.0-33.0); Mean Corpuscular Volume 82.7 fL (80.0-98.0); Mean Platelet Volume 11.3 fL (9.4-12.3); Monocytes Absolute Auto 0.7 X10*3/uL (0.1-1.2); Monocytes Percent Auto 6.5 % (2-11); Neutrophils Absolute Auto 6.4 x10*3/uL (2.0-8.3); Neutrophils Percent Auto 63.5 % (45-73); Platelet Count 331 X10*3/uL (160-400); Red Blood Count 5.39 X10*6/uL (4.20-5.50); Red Cell Distribution Width 13.3 % (11.0-16.0); White Blood Count 10.1 X10*3/uL (4.8-10.8)
[2024-09-01 14:09] LABS: INTERNATIONAL NORM RATIO 0.9 (0.9-1.1); Prothrombin Time 10.9 SEC (10.9-12.4)
[2024-09-01 14:12] LABS: Partial Thromboplastin Time 35.3 SEC (26.0-36.8)
[2024-09-01 14:25] LABS: Alanine Aminotransferase 65 U/L (0-31); Albumin Level 4.4 g/dL (3.5-5.0); Alkaline Phosphatase 76 U/L (39-117); Anion Gap 16 (12-20); Aspartate Amino Transferase 45 U/L (5-31); Bilirubin Total 1.1 mg/dL (0.0-1.0); Blood Urea Nitrogen 14 mg/dL (9-16); Calcium 9.7 mg/dL (8.4-10.2); Carbon Dioxide 21 mmol/L (22-29); Chloride 108 mmol/L (96-108); Creatinine Clr Calc Pharmacy 150.3; Estimated Glomerular Filt Rate > 60; Glucose Random 111 mg/dL (60-115); Magnesium 1.8 mg/dL (1.6-2.6); Potassium 4.2 mmol/L (3.3-5.1); Sodium 141 mmol/L (135-145); Total Protein 8.4 g/dL (6.5-8.0)
[2024-09-01 14:33] LABS: Troponin-I High Sensitivity < 2.7 ng/L (<3.5-17.0)
[2024-09-01 14:46] LABS: Influenza A PCR NEGATIVE (Negative); Influenza B PCR NEGATIVE (Negative); Resp Syncy Virus RNA Qual PCR NEGATIVE (Negative); SARS COV2 PCR INHOUSE NEGATIVE (Negative)
--- OUTSIDE RECORDS SUMMARY | 2024-09-01 20:24 | XMS_ITS | Encounter Summary ---
Author Organization [facility] Address [address] [place] [address] Phone Care Team Providers Care Financial Institution Manager Name Role Phone Michelle Dyer DO Primary Care Provider Unavaila ble Encounter Details Date Type Department Care Team (Late st Contact Info) Description 02/01/2011 Conversion Encounter [facility] [address] [facility] [place] [address] Social History Tobacco Use Types Packs/Day Years Used Date Smoking Tobacco: Never Assessed Comments Unknown Sex and Gender Information Value Date Recorded Sex Assigned at Not on file Legal Sex Female 6:39 PM EDT Gender Identity Not on file Sexual Orientation Not on file documented as of this encounter Plan of Treatment Not on file documented as of this encounter Visit Diagnoses Not on filedocumented in this encounter Care Teams Financial Institution Manager Relationship Specialty Start Date End Date Michelle Dyer DO PCP - General 11/07/17 documented as of this encounter
--- OUTSIDE RECORDS SUMMARY | 2024-09-01 20:24 | XMS_ITS | Patient Health Record ---
Author Organization [facility] [address], [place] [id number] Care Team Providers Care Hole Digger Operator Name Role Phone Sarah Kenyon Unavailable [phone] Reason For Referral No Information Encounters Encounter Location Date Provider Diagnosis [address] [phone] 08/07/2024 Sarah Kenyon Plan Of Treatment No Information Insurance Providers Payer Name Payer Address Payer Phone Subscriber Number Group Number Insured Name Patient Relationship to Insured Coverage Start Date Coverage End Date [facility] [address] [facility] [id number] Claudine Wilkinson Self - patient is the insured
--- OUTSIDE RECORDS SUMMARY | 2024-09-01 20:24 | XMS_ITS | Data Portability ---
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 completed Not Available Not Available Not Available cyclobenz aprine 5 mg tablet Take 1 tablet every day by oral route for 10 days. 04/14 completed Not Available Not Available Not Available topiramat e 50 mg tablet TAKE 1 TABLET TWICE A DAY BY ORAL ROUTE FOR 30 DAYS, FOR MIGRAINE PREVENTI ON. 05/22 completed Not Available Not Available Not Available nitrofura ntoin monohydra te/macroc rystals 100 mg capsule 11/08 completed Not Available Not Available Not Available magnesium 1 table po daily (strengt h unknown) 10/09 completed Not Available Not Available Not Available B Complex 1 caplet po daily 10/09 completed Not Available Not Available Not Available tranexami c acid 650 mg tablet 10/09 completed Not Available Not Available Not Available butalbita l-acetami nophen-ca ffeine 50 mg-300 mg-40 mg capsule TAKE 1 CAPSULE EVERY 4 HOURS BY MOUTH NEEDED FOR 4 DAYS. 06/20 completed Not Available Not Available Not Available + DHA 1 tab daily orally 10/09 completed Not Available Not Available Not Available Jeniffer 14 mcg/24 hr (up to 3 years) 13.5 mg intrauter ine device Take 1 {each} by intraute ri route. 12/02 completed Not Available Not Available Not Available ID NOW COVID-19 Test Kit TEST DIRECTED TODAY 07/07 completed Not Available Not Available Not Available COVID-19 test specimen collectio n TEST DIRECTED 04/14 completed Not Available Not Available Not Available Paxlovid 300 mg (150 mg x 2)-100 mg tablets in a dose pack Take 1 dose pk twice a day by oral route for 5 days. 07/19 completed Not Available Not Available Not Available Vitals Date Recorded Body height Provider Name an d Address Organization Details Last Updated DateTime 06/02/2024 168.91 cm Almita Patel MA [facility] 06/02/2024 11:01:25 Date Recorded Body height Provider Name an d Address Organization Details Last Updated DateTime 06/19/2024 168.91 cm Nancy Li LPN [facility] 06/19/2024 14:37:49 Date Recorded Body height Body mass index (BMI) Body weight Heart rate Oxygen saturation Oxygen saturation in Arterial blood by Pulse oximetry Body temperature Systolic blood pressure Diastolic blood pressure Provider Name and Address Organization Details Last Updated DateTime 4 168.91 cm 45.8 kg/m2 252759. 6 g 109 /min 97 % 97 % 98 [degF] 111 mm[Hg] 78 mm[Hg] Lonnie lara MA [facility] 4 10:34:56 Date Recorded Body height Provider Name an d Address Organization Details Last Updated DateTime 06/30/2024 168.91 cm Almita Patel MA [facility] 06/30/2024 11:25:34 Date Recorded Body height Body mass index (BMI) Body weight Oxygen saturation Oxygen saturation in Arterial blood by Pulse oximetry Heart rate Body temperature Systolic blood pressure Diastolic blood pressure Provider Name and Address Organization Details Last Updated DateTime 5 168.91 cm 45.4 kg/m2 199701. 63 g 99 % 99 % 97 /min 98.3 [degF] 121 mm[Hg] 81 mm[Hg] Almita Patel MA [facility] 5 11:11:33 Social History Question Answer Notes LastModified by Organizat ion Details LastModified Time Tobacco Smoking Status Never Smoker JUANITA Mittal, [facility] 02/20/2018 11:11:50 Do You Have An Advance Directive? No Information not available 08/21/2018 What Is Your Level Of Alcohol Consumption? None [email or web address] Information not available 02/20/2018 Is Blood Transfusion Acceptable In An Emergency? Yes [email or web address] Information not available 02/20/2018 What Is Your Level Of Caffeine Consumption? Occasional [email or web address] Information not available 02/20/2018 How Much Tobacco Do You Chew? None Information not available 08/21/2018 Are You Currently Employed? Yes [email or web address] Information not available 02/20/2018 What Type Of Diet Are You Following? REGULAR [email or web address] Information not available 02/20/2018 Do You Or Have You Ever Used E-cigarettes Or Vape? Never Used Electronic Cigarettes [email or web address] Information not available 02/24/2019 What Is Your Occupation? [employer] STUDENT [email or web address] Information not available 02/24/2019 Live Alone Or With Others? With Others Boyfriend (Andrew Orlanod) [email or web address] Information not available 02/20/2018 Do You Take Precautions To Prevent Distracted Driving? Yes [email or web address] Information not available 02/20/2018 How Often Do You Need To Have Someone Help You When You Read Instructions, Pamphlets, Or Other Written Material From Your Doctor Or Pharmacy? Sometimes [email or web address] Information not available 02/20/2018 Have You Served In The ? No [email or web address] Information not available 02/20/2018 Have You Or Anyone In Your Household Had Any Of The Following Symptoms In The Last 14 Days: Sore Throat, Cough, Chills, Body Aches For Unknown Reasons, Shortness Of Breath For Unknown Reasons, Loss Of Smell, Loss Of Taste, Fever At Or Greater Than 100 Degrees Fahrenheit? No [email or web address] Information not available 11/08/2020 Are You Or Anyone In Your Household A Health Care Provider Or Emergency Responder? No [email or web address] Information not available 11/08/2020 To The Best Of Your Knowledge Have You Been In Close Proximity To Any Individual Who Tested Positive For COVID-19? No [email or web address] Information not available 11/08/2020 Have You Recently Traveled To A COVID-19 High Risk Area Or Gathering In The Last 10 Days? No [email or web address] Information not available 11/08/2020 What Was The Date Of Your Most Recent Tobacco Screening? 06/02/2024 [email or web address] Information not available 06/02/2024 How Many Children Do You Have? 0 [email or web address] Information not available 02/20/2018 Do You Use Protection During Sex? Always [email or web address] Information not available 02/24/2019 Seat Belts Used Routinely Yes [email or web address] Information not available 02/20/2018 Are You Sexually Active? Yes [email or web address] Information not available 02/20/2018 Smoke Alarm In Home Yes [email or web address] Information not available 02/20/2018 At What Age Did You Start Smoking Tobacco? 0 Information not available 08/21/2018 Are You Passively Exposed To Smoke? No Information not available 08/21/2018 Do You Or Have You Ever Used Smokeless Tobacco? Never Used Smokeless Tobacco [email or web address] Information not available 02/24/2019 How Much Tobacco Do You Smoke? No Information not available 08/21/2018 Do You Use Any Illicit Or Recreational Drugs? No Information not available 12/23/2021 Do You Use Sunscreen Routinely? Yes Information not available 02/20/2018 How Many Years Have You Smoked Tobacco? 0 Information not available 08/21/2018 Do You Or Have You Ever Used Any Other Forms Of Tobacco Or Nicotine? No Information not available 12/23/2021 Sex: Unknown Functional Status Question Answer Note LastModified by Organization D etails LastModified Time Are you able to walk? YESWOREST [email or web address] Information not available 04/14/2021 Are you able to care for yourself? Yes [email or web address] Information not available 02/20/2018 What is your exercise level? None [email or web address] Information not available 02/20/2018 Mental Status None recorded. Family History Relationship Description Onset Age of this Age Resolved Age Notes LastModified by Organization Details LastModified Time Maternal Grandmother Hypertensive disorder Not available 02/20 11:07:19 Maternal Grandmother Intracranial aneurysm [email or web address] Not available 02/20 11:10:28 Maternal Grandmother Drug abuse angelica oneill uncles [email or web address] Not available 04/30/2019 15:28:15 Father Diabetes mellitus [email or web address] Not available 02/20 11:07:56 Father Drug abuse [email or web address] Not avail able 04/30/2019 15:27:38 Paternal Grandfather Diabetes mellitus [email or web address] Not available 02/20 11:08:07 Mother Depressive disorder [email or web address] Not available 02/20 11:10:02 Mother Drug abuse [email or web address] Not avail able 04/30/2019 15:27:47 Notes:No FH of breast or col on cancer Medical History No medical history recorded. Gynecological History Statement/Question Response Date of Last Pap Smear 07/02/2019 Obstetrics History GPAL:G 0 P 0 0 0 0 Immunizations Vaccine Type Date Status Note Provider Nam e and Address Organization Details Recorded Time DTaP 9 completed Not Available [facility] 07/04/2021 04:26:28 DTaP 9 completed Not Available [facility] 07/04/2021 04:26:28 DTaP 9 completed Not Available [facility] 07/04/2021 04:26:28 DTaP 0 completed Not Available [facility] 07/04/2021 04:26:28 DTaP 4 completed Not Available [facility] 07/04/2021 04:26:28 HPV, unspecified formulation 0 completed Not Available [facility] 07/04/2021 04:26:28 HPV, unspecified formulation 2 completed Not Available [facility] 07/04/2021 04:26:28 HPV, unspecified formulation 3 completed Not Available [facility] 07/04/2021 04:26:28 Hep A, adult 8 completed Not Available [facility] 07/04/2021 04:26:28 Hep B, adolescent or pediatric 9 completed Not Available [facility] 07/04/2021 04:26:28 Hep B, adolescent or pediatric 9 completed Not Available [facility] 07/04/2021 04:26:28 Hep B, adolescent or pediatric 9 completed Not Available [facility] 07/04/2021 04:26:28 Hib (HbOC) 9 completed Not Available [email or web address] 07/04/2021 04:26:28 Hib (HbOC) 9 completed Not Available [facility] 07/04/2021 04:26:28 Hib (HbOC) 9 completed Not Available [facility] 07/04/2021 04:26:28 Hib (HbOC) 0 completed Not Available [facility] 07/04/2021 04:26:28 MMR 0 completed Not Available [facility] 07/04/2021 04:26:28 MMR 4 completed Not Available [facility] 07/04/2021 04:26:28 meningococcal C conjugate 0 completed Not Available [facility] 07/04/2021 04:26:28 meningococcal C conjugate 6 completed Not Available [facility] 07/04/2021 04:26:28 Pneumococcal Conjugate, unspecified formulation 0 completed Not Available [facility] 07/04/2021 04:26:28 Pneumococcal Conjugate, unspecified formulation 0 completed Not Available [facility] 07/04/2021 04:26:28 IPV 9 completed Not Available [facility] 07/04/2021 04:26:28 IPV 9 completed Not Available [facility] 07/04/2021 04:26:28 IPV 0 completed Not Available [facility] 07/04/2021 04:26:28 IPV 4 completed Not Available [facility] 07/04/2021 04:26:28 Tdap 0 completed Not Available [facility] 07/04/2021 04:26:28 varicella 0 completed Not Available [facility] 07/04/2021 04:26:28 varicella 0 completed Not Available [facility] 07/04/2021 04:26:28 COVID-19, mRNA, LNP-S, PF, 100 mcg/0.5mL dose or 50 mcg/0.25mL dose 1 completed Not Available [facility] 07/04/2021 04:26:28 COVID-19, mRNA, LNP-S, PF, 100 mcg/0.5mL dose or 50 mcg/0.25mL dose 1 completed Not Available [facility] 07/04/2021 04:26:28 meningococcal MCV4P 1 completed Not Available [facility] 07/04/2021 04:26:28 Hep B, adult 1 completed Not Available [facility] 07/04/2021 04:26:28 Influenza, split virus, quadrivalent, PF 1 completed Not Available [facility] 07/04/2021 04:26:28 COVID-19, mRNA, LNP-S, PF, 100 mcg/0.5mL dose or 50 mcg/0.25mL dose 2 completed JUANITA Mittal [facility] 12/02/2021 13:33:32 Tdap 1 completed JUANITA Marquez, [facility] 01/24/2022 15:05:56 Influenza, split virus, quadrivalent, PF 8 completed JUANITA Marquez, [facility] 01/24/2022 15:05:56 Influenza, split virus, quadrivalent, PF 9 completed JUANITA Marquez [facility] 01/24/2022 15:05:57 COVID-19, mRNA, LNP-S, PF, 100 mcg/0.5mL dose or 50 mcg/0.25mL dose 1 completed JUANITA Marquez [facility] 01/24/2022 15:05:57 Influenza, split virus, quadrivalent, PF 2 completed JUANITA Bishop [facility] 07/07/2022 13:09:54 Influenza, split virus, quadrivalent, PF 3 completed [facility] 03/20/2024 15:08:44 MMR 4 completed JUANITA Ybarra MA [facility] 04/09/2024 13:36:26 Past Encounters Encounter ID Performer Location Encounter Start Date Encounter Closed Date Diagnosis/Indication Diagnosis SNOMED-CT Code Diagnosis ICD10 Code Diagnosis Note [id number] Micaela Nina cat Main Office [address] [facility] [address] [facility] [place] [address] 02/20/2018 10:25:22 02/20/2018 11:51:56 Adult health examination 600933650 Z00.00 sees rv service technician, had a miscarriag e 2017 Migraine 73097782 G43.90 9 sees neurology if needed, migraines are doing pretty well History of calculus of kidney 641738574 Z87.442 is followed by urology Polycystic ovaries 41793 008 E28.2 goes to [facility], had one miscarriag e, is overweight . Hypercholesterolemia 136 17902 E78.00 check fasting Fatigue 20185015 R53.83 Liver mass 268705215 R16 .0 pt did not see GI in f/u, workup form past provider, pt will see [facility] for eval of liver mass, ? repeat imaging needed? Obesity 485022513 E66.9 Body mass index 30+ - obesity 663951724 Z68.33 [id number] Naveed Arriaga MD Main Office [address] [facility] [address] [facility] [place] [address] 03/22/2018 09:16:08 03/22/2018 10:17:40 Dizziness 049596163 R42 Not distinctly vertigo and exam is atypical in the context of new vision changes/am enorrhea. Intracrani al imaging to rule out MS/mass warranted. Migraine 81088078 G43.90 9 Blurring o f visual image 451869351 H53.8 Reports recent eye exam. Amenorrhea 02280698 N91. 2 ? if related to PCOS. Unclear as to how this diagnosis was made. WIll see if labs corroborat e and rule out . Polycystic ovaries 80688 008 E28.2 Lesion of liver 88125775 [address] scan. Has GI appt. Will check liver labs. Needs infl uenza immunization 250934276 Z23 [id number] Naveed Arriaga MD Main Office [address] [address] [place] [address] 04/18/2018 10:08:59 04/18/2018 11:44:00 Migraine 90385428 G43.909 Polycystic ovaries 08044 008 E28.2 Pt declines metformin and will discuss tx options with her rv service technician. Amenorrhea 82962156 N91. 2 Likley secondary to PCOS. Will consider ocp via her rv service technician. Dizziness 868649750 R42 ? BPPV. See what neurology thinks. Acute low back pain 2788 45657 M54.5 Screen for stones and UTI. Further eval guided by results/sy mptoms. [id number] Micaela MccormickbethelFrancy roblesemory Main Office [address] [place] [address] [place] [address] 06/03/2018 16:13:25 06/03/2018 16:46:55 Lesion of liver 318709954 K76.9 pt is followed by GI, MRI of abdomen is ordered for 06/10/2018 , pt had this dx with prior provider and was lost to followup, no pain Dizziness 317435317 R42 labs nl, mild ? vertigo, pt will add salt and hydrate [id number] Micaela Nina roblesenzo Main Office [address] [place] [address] [place] [address] 07/29/2018 15:55:59 07/29/2018 16:39:27 Anxiety 13440376 F41.9 pt to pursue counseling , ideas given to pt and will start sertraline , return 6 weeks, Menorrhagia 319890621 N9 2.0 will check CBC is working with rv service technician [id number] LINH William Main Office [address] [address] [place] [address] 08/21/2018 13:31:55 08/21/2018 15:23:59 Acute pelvic pain 143533853 R10.2 left sided with menorrhagi a/ bleeding x 1 month, has tried calling DIRECTOR OF AVIATION without much success. will check pelvic US. Dysuria 93556345 R30.0 negative urien dip, will send for culture. Low back pain 216101189 M54.5 left sided, + muscle spasm palpable. suggest meloxicam as needed with food, heat 4 times daily x 20 mins at a time, gentle stretching as tolerated. Menorrhagia 515635116 N9 2.0 [id number] Micaela cat Main Office [address] [facility] [address] [place] [address] 10/09/2018 15:47:37 10/09/2018 16:23:28 Anxiety 65948769 F41.9 in counseling and sertraline 25 mg is helpful, increase to 50mg [id number] Micaela cat Main Office [address] [facility] [address] [place] [address] 02/24/2019 09:47:58 02/24/2019 10:57:34 Adult health examination 602671425 Z00.00 has an IUd, off OCPS due to FNH. wants to lose weight, still with active depression and anxiety Pain in right knee 34190 43959 81602 M25.561 hx of cartilage surger with NEOS, will return Focal nodu lar hyperplasia of liver 929589309 K76.89 MRI 07/20 showed osme increase is size, off OCP's, just got an IUD, we will set up appt for pt to see GI Major depr ession single episode, in partial remission 26842104 F32.4 undertx, increase to 100mg a day, pt to see therapist on site and se tup regular counseling and med eval, no hx of bipolar in pt, she knows to watch for symptoms. Anxiety 89923705 F41.9 increase to 100mg a day [id number] Sharon Hernandez MA Main Office [address] [facility] [address] [place] [address] 04/16/2019 14:22:41 04/16/2019 15:23:55 Needs influenza immunization 993420050 Z23 Tuberculos is screening 954967017 Z11.1 [id number] Breanna Morocho Main Office [address] [facility] [address] [place] [address] 04/18/2019 15:06:39 04/18/2019 15:16:57 [id number] Micaela cat Main Office [address] [facility] [address] [place] [address] 04/30/2019 15:00:31 04/30/2019 16:16:01 Major depression single episode, in partial remission 19618020 F32.4 continue medication and counseling , pt is very insightful , needs to get her own apartment. [id number] Micaela cat Main Office [address] [facility] [address] [place] [address] 09/03/2019 12:32:52 09/03/2019 13:24:04 Focal nodular hyperplasia of liver 292316675 K76.89 was followed by GI, knows to avoid bcp with hormones, has an IUD Pain in right knee 83386 62557 49271 M25.561 hx of cartilage surgery with NEOS, will return to see Dr Munroe due to ongoing pain, still limited in her physical activity Major depr ession single episode, in partial remission 65172186 F32.4 mood a bit low, no suicidal plans, stress and financial stress, increase sertraline to 150mg a day and increase therapy to once a week [id number] Micaela cat Main Office [address] [facility] [address] [place] [address] 11/03/2019 13:11:39 11/03/2019 15:12:14 Major depression single episode, in partial remission 59640300 F32.4 mood is better now that knee pain is gone, will continue on sertraline and start activity Pain in right knee 67346 46249 66812 M25.561 hx of cartilage surgery with NEOS, just had injection which really helped, pt to add motrin and start exercising [id number] Micaela Nina cat [place] [id number] [facility] [address] [facility] [place] [place] [address] 12/30/2019 12:45:22 12/30/2019 14:29:12 Hematochezia 902016514 K92.1 blood in stool, pt does not feel hemmorhoid s, she has been having loose stools, if any worsening she will come in for a visit, she will see GI, check CBC Diarrhea 26948022 R19.7 unclear cause needs colonosocy Anxiety 41707701 F41.9 better on meds [id number] Tanika Iraheta MA [facility] [address] [facility] [address] [facility] [place] [address] 06/07/2020 12:58:50 06/07/2020 15:41:26 Calculus of kidney and ureter 921539034 N20.2 MOst likely acute L. renal or ureteral calculus. Pt. advised to hydrate and take Tylenol ES for pain. CT of abd and pelvis and labs and urine ordered as well as urology consult. 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 [facility] - will fill out for her Moderate r ecurrent major depression 56375035 F33.1 pt took self off sert last summer, will resume med and get her back into counsellin g rec start c 1/2 tab first wk then advance as randal Anxiety 97304974 F41.9 see above - used to see a counsellor at [facility] - will get bhn eval History of calculus of kidney 254470432 Z87.442 seen by uro, f/u prn Pain in right knee 39289 77375 62270 M25.561 better lately, cont f/u c rheum & ortho Body mass index 30+ - obesity 941196387 E66.9 Z68.36 Screening for cardiovascular system disease 696531761 Z13.6 Impaired f asting glycemia 777080235 R73.01 Counseling 954497220 Z71 .9 Referral for counseling with [facility]EN Hernandez. Please provide patient with contact info to schedule their appointmen tScott Bello# email: [email or web address] Administra tion of viral vaccine 41205985 Z23 [id number] Nicolasa Olson Main Office [address] [facility] [address] [place] [address] 11/19/2020 13:29:10 11/19/2020 15:05:56 Vaccine adverse reaction 588498598 T50.Z95A local reaction,a t injection site left deltoid no evidence of infection, no hematoma, normal exam of rest of arm. Advised warm alternatin g with cool compresses , gentle massage and advil prn. Call if not improving in the next week, sooner if worsening. Localized swelling, mass and lump, upper limb 609553570 R22.32 [id number] Nicolasaarnaldo Olson Main Office [address] [facility] [address] [place] [address] 12/29/2020 09:59:29 12/29/2020 10:41:00 Injury of neck 53184889 S19.9XXA Soft tissues swelling likely causing neck tightening . Xray in the ER were unremarkab le. Pt. is able to eat and drink. Recommend to try muscle relaxants and Naprosyn prescribed by the ER and let us know if any worsening of symptoms occurs. Moderate r ecurrent major depression 87057629 F33.1 Stable overall , but worsened by last week's stressful situation. Restart therapy. Pt. will call therapist to schedule. Continue sertraline 100 mg. F/u with PCP in 3 m or sooner if necessary. Generalize d anxiety disorder 72398064 F41.1 continue current meds. [id number] Kenya Posadas PA-C Main Office [address] [facility] [address] [place] [address] 01/11/2021 16:01:40 01/11/2021 16:48:35 Moderate recurrent major depression 55995147 F33.1 recom. to continue sertraline 100 mg Injury of neck 71876065 S19.9XXD PMH of strangulat ion in November 2020, previously diagnosed with soft tissue swelling likely causing neck tightening . Xrays in November were unremarkab le. Currently experienci ng numbness, tingling in R arm due to trapezius tightness and associated neuralgia. Will prescribe gabapentin 100 mg TID to start and see her in f/u in 2 -4 weeks. Recommend to continue stretching . Generalized headache [id number] R51.9 Likely due to muscle tension.Ga bapentin could be beneficial . WE will recheck on it in 4 weeks. [id number] Kenya Posadas PA-C Main Office [address] [facility] [address] [place] [address] 03/01/2021 13:33:51 03/01/2021 14:17:25 Musculoskeletal chest pain [id number] R07.89 Pt. reassured pain is musculoske letal in nature. Recom. to try Naprosyn BID with food for 1-2 weeks and small dose of cyclobenza brianna at HS only for 5-10 days. F/u as needed. [id number] Micaela cat Main Office [address] [place] [address] 04/14/2021 15:25:12 04/18/2021 11:22:53 Major depression single episode, in partial remission 15517129 F32.4 depression is active and is associated with poor motivatin, focus and attention. Is working hard at nursing school, restarted her antidepres shae a month ago, needs more time for full effect. Is safe with self, continue sertraline 100mg and 2 months televisit Anxiety 11609811 F41.9 cotninue meds Poor focus 858178290 H52 .7 form filled out for school for accommodat ions due to anxiety and depression and poor focus Counseling [id number] Z71 .9 Referral for counseling with Kalyn / COLLEEN Hernandez. Please provide patient with contact info to schedule their appointmen t. Ph# email: [email or web address] [id number] Micaela cat Main Office [address] [facility] [address] 06/03/2021 10:45:01 06/03/2021 11:21:23 Generalized anxiety disorder 11256939 F41.1 doing much better, doing well in school, [facility], continue meds they are helping Migraine 99520820 G43.90 9 saw neurology in the past, neg MRI in past in 2018 no concern for this headache for anything bad , n need to screen for aneurysm, no first degree relatives with aneurysm Moderate r ecurrent major depression 43560373 F33.1 on sertraline 100mg and thinks it is helping, pt is feeling really happy, she notes school is going well. Counseling [id number] Z71 .9 Referral for counseling with Kalyn / COLLEEN Hernandez. Please provide patient with contact info to schedule their appointmen t. Ph# email: [email or web address] [id number] Micaela Nina Gunnhealchandan h [address] [facility] [address] [place] [address] 06/20/2021 08:38:31 06/21/2021 09:29:22 Moderate recurrent major depression 24494568 F33.1 on sertraline 100mg and thinks it is helping, pt is feeling really happy, she notes school is going well. encouraged pt to set up counseling , she has info Fatigue 06584249 R53.83 is doing pretty well, family hx of DM, check labs Headache 22147583 R51.9 tension headaches, discussed heat massage and stretching [id number] Alma Mcphersonsajan Main Office [address] [address] [place] [address] 12/02/2021 13:21:19 12/02/2021 15:18:52 Dizziness 737891967 R42 check labs, keep hydrated, small frequent meals., discussed stress possibly related. Headache 37301089 R51.9 Frequent headaches, needs to eat more regularly, sleep better. Has stressful living situation recommend counseling Hypoglycemia 518865106 E 16.2 seems to have sx of low blood sugar, will eat small frequent meals with protein, short term followup do labs Generalize d anxiety disorder 56137115 F41.1 Has dysfunctio nal living situation, suggested counseling , pt will look into this, declines meds at this time.. [id number] Alma Cruz Main Office [address] [address] [place] [address] 12/23/2021 13:30:51 12/23/2021 14:49:07 Adult health examination 404401732 Z00.00 She is in good general health, needs to work on mental health issues, stress reduction. . Reviewed immunizati ons. Discussed diet, exercise, dental care, due to see rv service technician Moderate r ecurrent major depression 27774868 F33.1 Pt agrees to start medication . She is aware SSRIs it takes a full 4-6 weeks for medication to work, will continue to take med for the entire time, and will not stop med abruptly. Will use 1/2 tab daily x 1 weeks, then 1 tabs daily. Side effects discussed. Patient verbalizes understand ing and agrees with plan. F/U in 6 weeks. Encouraged counseling through her school, [employer] [facility] [employer], pt agrees to reach out for an appt Hepatitis C screening 41 1735451 Z11.59 Screening for malignant neoplasm of cervix 850901990 Z12.4 [facility], pt will make appt, discussed using condoms all the time. Liver enzy mes level above reference range 471635907 R74.01 States she has as hx of FNH, will do ultrasound and repeat lfts. Was followed for this in the past, will get notes. Cannot use hormonal contracept ion, stressed need to use condoms consistent ly [id number] Joaquin Posadas PA-C Telehealt h [address] [facility] 207 [facility] [place] [address] 01/24/2022 09:14:13 01/24/2022 16:46:10 Migraine 59336279 G43.909 pt states has had nl brain mri's in past, has never been on rx for migraines x otc excedrin - also has recent h/o dizziness, so will get neuro eval (pt request) [id number] Gee Galvan MD Main Office [address] [facility] 207 [facility] [place] [address] 01/31/2022 15:11:56 01/31/2022 16:08:23 Moderate recurrent major depression 90648332 F33.1 Her symptoms sound related to stress resulting in depression and anxiety which lead to somatic issues. I encouraged her to take the SSRI as prescribed and to f/u with her PCP in 4-6 weeks. Generalize d anxiety disorder 95061249 F41.1 I encouraged her to look into counseling possibly at [facility] where she is going to school. [id number] ROMY PERAZA MD Main Office [address] [facility] 207 [place] [address] 06/15/2022 08:11:48 06/15/2022 11:24:11 Steatosis of liver 897684832 K76.0 - pt was referred to GI during the ED visit for further evaluation - ordered GI referral- pt is obese however there is no abnormalit ies in patient's cholestero l levels Transition of care from emergency department to self-care [id number] 68183 Z76.89 - ED notes were reviewed- pt presented complainin g of abdominal pain- labs were WNL, CT of the abdomen and pelvis showed hepatic steatosis and L5 pars defect Lumbar spondylosis 02673 0009 M47.896 - with pars defect at L5- patient having right sided back pain, has not improved since the ED visit- pt has an appoitment with [facility] on 07/13, referral provided- to help with the pain will start steroid meagan- pt has a history of anxiety which could be worsened by the steroids> if this occurs, pt advised to stop steroids and start diclofenac BID for 10 days> pt advised to take steroids and diclofenac with food- RTC in one month for further evaluation [id number] [facility] [address] [facility] 207 [place] [address] 07/07/2022 12:25:29 07/07/2022 14:04:09 COVID-19 511235175 U07.1 Based on duration of symptoms and comorbidit ies pt is a candidate for antiviral therapy. Common/ser ious potential side effects discussed. Advised to call if noted. Current isolation guidelines based on immunizati on status discussed as well as isolation if rebound infection occurs. Medication s reviewed and no dosing adjustment indicated with Paxlovid as she is not taking topirimate currently. [id number] Joaquin Posadas PA-C Main Office [address] [facility] 207 [place] [address] 07/19/2022 15:50:59 07/19/2022 16:42:52 Gastroesophageal reflux disease 842988035 K21.9 ? black tongue caused as SE from pepto - encouraged pt to re-try tonight as a trial to see if recurs - then will have answer --- then, begin pepcid ac (acid controller at [facility]- cheaper) daily at bedtime - could increase to bid prn [id number] [facility] [address] [facility] 207 [place] [address] 08/24/2022 14:57:09 08/24/2022 16:13:47 Hordeolum externum of upper eyelid of left eye [id number] 06541 H00.014 Advised her to do warm compresses for 15 minutes at a time 4 times a day. If this doesn't help she will fill the script for the abx ointment. [id number] ROMY PERAZA MD Main Office [address] [facility] [address] [place] [address] 06/02/2024 10:48:58 06/02/2024 13:11:04 Chronic daily headache 1299453692 10533 R51.9 - pt continues to have headache daily (migraine type)- has not stopped Excedrin and ibuprofen as advised by neurology which is contributi ng to her symptoms- taking sumatripta n as needed- pt is concerned that the topiramate is causing worsening anxiety and it is also not helping with symptoms of daily headaches therefore will taper off medicine- recommende d switching to different medication such as valproic acid vs propanolol however patient declined at this time- pt requesting second opinion with a new neurologis t> pt does have a neurologis t last seen on 04/2024: recommende d amitriptyl ine (pt never started and now on fluoxetine ), sleep study, MRI brain (negative) and topiramate (decreased to 100mg QD) Moderate r ecurrent major depression 42047609 F33.1 - PHQ-9 score of 13- pt has not yet started fluoxetine as she is worried about its side effects, interactio ns with other meds and efficacy> counsellin g was provided on all points- denies SI/HI- counsellin g provided Generalize d anxiety disorder 75531527 F41.1 - PAYAL-7 score of 15- pt is worried that the topiramate is causing worsening anxiety, therefore will do a trial off the medication - pt made aware that after stopping topiramate and if there is no improvemen t to start fluoxetine as this will help with both panic attacks and anxiety- c/w lorazepam 0.5mg as needed -> pt will try dosage of 1mg as current dosage is not beneficial - suggested patient find a therapist- counsellin g provided [id number] Nicolasa Olson Main Office [address] [facility] [address] [place] [address] 09/22/2022 15:45:01 09/22/2022 17:00:22 Cellulitis of skin 768832474 L03.313 warm compresses , local topical antibiotic , have piercing removed, call if not better. Use diflucan if yeast infection symptoms start [id number] [facility] Main Office [address] [address] [place] [address] 03/02/2023 13:25:20 03/02/2023 14:18:36 Migraine 75669250 G43.909 needs refill Paresthesia 84103848 R20 .2 will recheck labs and she has f/u with functional med this month. If no findings on labs may consider MRI brain. Prediabetes 042905073 R7 3.03 Vitamin D deficiency 347 82509 E55.9 [id number] Jassi Samano [facility] Main Office [address] [address] [place] [address] 07/12/2023 15:07:40 07/12/2023 16:06:19 Migraine 08961100 G43.909 Discussion re: starting an everyday preventive migraine med. options propranolo l, amitriptyl ine, topamax. She would like to consider this ad get back to us. For now will continue excedrin as needed, sumatripta n as needed, hydration, rest. She was encouraged to apply for intermitte nt FMLA for migraines as this has bene affecting her at work. Paresthesia 67369508 R20 .2 not as bothersome . [id number] ANGEL PRICE Main Office [address] [place], [place] [address] 02/27/2024 09:45:59 02/27/2024 10:27:22 Intermittent palpitations 065978210 R00.2 -pt notes of having intermitte nt palpitatio ns for months-epi sodes last <1 min, no known triggers-c ould be related to pt anxiety and/or migraines- ekg; NSR, no ST changes Migraine 56809801 G43.90 9 hx of migraines- occurs daily, has relief with sumatripta n and Excedrin-s ymptoms of blurry vision, nausea prior to episode onset-pt interested in further interventi ons; possibly botox injections -c/w sumatripta n-will refer to neurology per pt request [id number] LINH William Main Office [address] [address] [place] [address] 03/20/2024 14:58:59 03/20/2024 15:41:51 Migraine 01927963 G43.909 she did finally start topamax but is only taking 25mg daily. Recommend she increase to 25mg daily x 1 week then 50mg pm and 25mg am x 7 days then 50mg BID as this is therapeuti c migraine prevention dosing. Hydration- push fluids, rest, decrease stressors. sumatripta n only as needed, but prednisone taper to help break headache cycle. FMLA - OOW for 4 weeks, appt 04/09 for recheck prior to RTW [id number] Jassi Samano [facility] h [address] [facility] 207 [facility], [place] [address] 04/09/2024 13:26:15 04/09/2024 14:20:09 Migraine 17380158 G43.909 Is currently taking topamax 25mg am, 50mg bedtime. migraine frequency is decreased but she is havign daily headaches, brain fog, dizziness, numbness, tingling, pain. She feels she has not bene explaining herself well ands has been describing her sx as migraines but has other sx. Will check labs and MRI.She has neurology appt 04/23. Headache 29330908 R51.9 Dizziness 091284965 R42 Anemia 774753014 D64.9 Paresthesia 29497540 R20 .2 [id number] Jassi Samano [facility] h [address] [facility] 207 [facility], [place] [address] 05/22/2024 12:48:02 05/22/2024 13:46:27 Dizziness 337429602 R42 Feeling very dizzy, palpitatio ns with position changes. will check labs. may be multifacto rial- stress, anxiety, daily headaches and increase in dosing of topamax. Recommend hydration, rest, well balanced meals. Will order tilt table test. Palpitations 09206721 R0 0.2 Generalize d anxiety disorder 27861815 F41.1 SSRIs discussed at length with patient, takes a full 4-6 weeks to kick in, may feel worse in the 1st 2 weeks of therapy. Do not miss doses or stop med abruptly as this could cause discontinu ation syndrome (sweating, nausea, palpitatio ns, panic etc). It is recommende d to be on SSRI for at least 6 months for best efficacy. Only about 3% of people who start a med will get relief from the first med they try, it is trial and error, we can make changes to med dose, change med etc . F/u at for recheck of sx. - Scheduled 06/02.Loraz epam only as needed- no driving, alcohol or work with med. Fatigue 02416186 R53.83 Multiple joint pain 3567 8005 M25.50 Headache 51066277 R51.9 Daily headaches, has seen neurology and had topamax increased. she may be havign soem side effects from med. Has f/u 06/16 and she will stay on med until then, she will discuss with neurology if med still not working at that visit.Enco uraged to re-schedul ed her MRI- she should take 2 lorazepam 30 mins prior to test and have a ride to and from the test.Also keep eye appt and have sleep study done. [id number] Gee Galvan MD Telehealt h [address] [facility] [address] [place] [address] 06/19/2024 14:30:55 06/19/2024 15:14:08 Incomplete emptying of urinary bladder 640557225 R39.14 Unclear etiology. Mild symptoms to suggest kidney stones vs UTI but more likely anxiety-dr boyd concerns. Will check urine studies before pursuing any treatment. Generalize d anxiety disorder 08363303 F41.1 She has frequent concerns about her health as evidenced by the fact that this is her 13th appointmen t in the last 12 months. She should address this with her PCP. [id number] ROMY PERAZA MD Main Office [address] [facility] [address] [place] [address] 06/28/2024 10:25:45 06/28/2024 10:49:48 Eczema 91958947 L30.9 - of the areola bilateral but worse on the left side- complainin g of itchiness and there is mild erythema- no current concern for breast cancer -> does not appear as peau d'orange- recommend ointments such as aquaphor and cereva- do not recommend cortisone cream due to location as it can thin out skin in the area- if no improvemen t will refer to derm [id number] ROMY PERAZA MD Main Office [address] [facility] 207 [facility] [place] [address] 06/30/2024 11:03:45 06/30/2024 13:00:05 Chronic daily headache 1807091372 13793 R51.9 - pt continues to have headache daily (migraine type)- has not stopped Excedrin and ibuprofen as advised by neurology which could be contributi ng to her symptoms (rebound effect)- taking sumatripta n as needed- there was improvemen t in anxiety after stopping topiramate therefore will not start back- recommende d switching to different medication such as valproic acid vs propanolol however patient declined at this time- pt requesting second opinion with a new neurologis t, provided on last visit> pt does have a neurologis t last seen on 04/2024: recommende d amitriptyl ine (pt never started and now on fluoxetine ), sleep study, MRI brain (negative) and topiramate (decreased to 100mg QD) Moderate r ecurrent major depression 16620724 F33.1 - stable- PHQ-9 score of 14- just started fluoxetine at 20mg as recommende d> counsellin g was provided on all points- denies SI/HI- counsellin g provided Generalize d anxiety disorder 43311830 F41.1 - stable- PAYAL-7 score of 15- per patient improvemen t on panic attacks after stopping topiramate - pt as started fluoxetine 20mg QD- c/w lorazepam 0.5mg as needed -> pt will try dosage of 1mg as current dosage is not beneficial - suggested patient find a therapist- counsellin g provided Administra tive reason for encounter [id number] Z02.9 - will complete ADA paperwork [id number] LINH William Main Office [address] [facility] [address] [place] [address] 07/23/2024 10:52:10 07/23/2024 11:41:47 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 may wash with warm water and mild soap, pat dry, apply fluocinoni de and mupirocin then aquaphor over that, may keep covered during the day and air ut at night. F/U with derm as scheduled in August. Would culture sent of the weeping lesions.ca ll/ return for worsening or concerns Cellulitis 955829837 L03 .90 bilateral breasts Health Concerns Section Related Observation LastModified by Organization Detai ls LastModified Time None Recorded Concern Status LastModified by Organization Details LastModified Time None Recorded Advance Directives Directive N: Payers Encounter Date Sequence Insurance Name Policy Number Policy Doss Covered Member ID Doss Member ID Guarantor Name 06/02/2024 1 [employer] [facility] [id number] 3 Claudine Santerre [id number] Godfrey Santerre 06/19/2024 1 [employer] [facility] [id number] 3 Claudine Santerre [id number] Godfrey Santerre 06/28/2024 1 [employer] [facility] [id number] 3 Claudine Santerre [id number] Godfrey Santerre 06/30/2024 1 [employer] [facility] [id number] 3 Claudine Santerre [id number] Godfrey Santerre 07/23/2024 1 [employer] [facility] [id number] 3 Claudine Santerre [id number] Godfrey Santerre Notes Date Note Type Note Provider Name and Address Organization Details Recorded Time 06/02/2024 text/html Anxiety/Depressi onRepo rted bypatient.Quality:incr eased anxiety;panic symptoms Severity:interference with work(not currently working) Duration:symptoms lasting over 2 weeks Onset/Timing:still present Context:major life stressors Associated Symptoms:emotional lability;anxiety;low self-esteem;palpitatio ns Claudine Wilkinson is a 23 year old F who was seen over for follow-up on anxiety. Pt was seen recently on 05/22 for this complaint was given fluoxetine 10mg and lorazepam. Anxiety: pt mentions that she has noticed a worsening in her anxiety which does somewhat correlate with starting topiramate. Pt has also had an increase frequency in panic attacks. This has caused patient to be fearful of going outside. Patient can still to errands and task however does have to mentally prepare herself before leaving. Has not yet started fluoxetine. Has been taking lorazepam 0.5mg as needed with little improvement. Headaches: Topamax as been decreased to 100mg nightly. Continues to have headaches daily however less migraines. Pt takes sumatriptan as needed. However takes Excedrin and ibuprofen daily. Pt does have a neurologist that she follows. ROMY PERAZA MD [address] [address], [place], [address], [facility] 06/02/2024 12:50:30 06/19/2024 text/html She started havi ng some right sided back pain around the area of her lower ribs yesterday and denies any injury. She then developed some pelvic pain along with hesitancy and incomplete bladder emptying. She denies dysuria and states that she always has frequency which hasn't changed. She denies n/v or f/c. She had kidney stones in 2018 (6 years ago). She denies any blood. Gee Galvan MD [address] [address], [place], [address], [facility] 06/19/2024 17:17:46 06/28/2024 text/html Claudine Wilkinson is a 23 year old F who presents to the clinic complaining of left sided breast itchiness. Pt sent over a message to PCP on 06/27 reading: Hi, I am reaching out because my left breast has been extremely itchy and irritated for a few days, going on a week soon. My areola has red spots and seems a bit inflamed more on my left side but I see it on the right as well. I am reaching out to you guys because my OB changed offices and they are pretty backed up with their appointments. I can also reach out to them if you think that? s better. I? m just wondering if you would have any idea what? s going on and if it? s something to be worried about or not. This has been on-going for one week. Pt feels as the itchiness is getting worse and she getting more red spots. Has been applied ointment. Denies using any new soaps or detergent. No discharge from the nipples. Family history: great grandmother- breast cancer, villareal syndrome-aunt father side ROMY PERAZA MD [address] [facility] [address], [place], [address], [facility] 06/28/2024 11:17:31 06/30/2024 text/html Anxiety/Depressi onRepo rted bypatient.Quality:incr eased anxiety;panic symptoms Severity:interference with work(not currently working) Duration:symptoms lasting over 2 weeks Onset/Timing:still present Context:major life stressors Associated Symptoms:emotional lability;anxiety;low self-esteem;palpitatio ns Claudine Wilkinson is a 23 year old F who was seen over for discussion on going from short term disability to ADA. Patient has been out-of-work since 03/2024 due to on-going uncontrolled headaches, palpitations, dizziness and anxiety. Pt works as a nurse in the NICU. Anxiety: currently improving after stopping topiramate. Pt also mentions she started taking fluoxetine 20mg on 06/29. Has been taking lorazepam only as needed. The panic attacks have reduced and patient has been able to go outside more. Did come to in-office appoitment on 06/28 which is a good sign. Headaches: Topamax as been stopped. Continues to have headaches daily however less migraines. Pt takes sumatriptan as needed. However takes Excedrin and ibuprofen daily. Pt does have a neurologist that she follows. Pt was referred to a new neurologist for a second opinion. Dizziness/palpitations : Pt has not been able to complete this work-up yet. Blood work ordered. Has tilt-table test scheduled. ROMY PERAZA MD [address] [facility] [address], [place], [address], [facility] 06/30/2024 18:00:09 07/23/2024 text/html Generic HPI TemplateReported bypatient.Notes:Presen ts for rash/ skin irritation. seen in June and recommended aquaphor, has appt with derm but not until September 18- [facility]. rash to bilateral breasts, cant wear a bra, weeping and sticking to her shirt. painful, very itchy.She has been keeping it covered, drainage is yellow.No breast lump she can feel. Jassi Samano, [facility] [address] [address], [place], [address], [facility] 07/23/2024 11:58:02 OBGyn Episode No OBEpisode recorded.
--- OUTSIDE RECORDS SUMMARY | 2024-09-01 20:25 | XMS_ITS ---
Author Organization [address] [id number] Care Team Providers Care [facility] Programs Director Name Role Phone Sarah Kenyon Unavailable [phone] REASON FOR VISIT #T Encounters Encounter Location Date Provider Diagnosis [address] [id number] 08/07/2024 Sarah Kenyon Plan Of Treatment No Information Progress Notes * Claudine SOLITARIODOB:[birth year] (23 yo F)Acc No.[id number]:08/07/2024 Patient:?Claudine SOLITARIO :2000???Age:23 Y???Sex:Female Address:[address] [place] [address], [phone] * true * Date:? Generated for Kseniai coy/Marilee/eTransmitting on:?09/01/2024 08:24 PM EST
--- OUTSIDE RECORDS SUMMARY | 2024-09-01 20:25 | XMS_ITS | Continuity of Care Document ---
Author Organization [facility] ter Address [address] [place] [id number]- Care Team Providers Care Rn Resource Nurse Name Role Phone Lauri MANN, Micaela De Leon Primary Care Physic judy Encounter [facility] ACCT R [id number] Date(s): 07/13/24 - 08/22/[address] [address] Attending Physician: Jassi Mota Admitting Physician: Jassi Mota Referring Physician: Jassi Mota Encounter Type: Pre-Outpt Allergies, Adverse Reactions, Alerts Substance Criticality Severity Reaction Reaction Severity Status Other Environmental Allergy seasonal Active Medications hyoscyamine 0.125 mg sublingual tablet 1 tablet = 0.125 mg, Sublingual, Every 4 hours, # 30 tablet, 5 Refills, Maintenance, 05/02/20 5:34:00 PM EST, Tablet, [id number], 168.91, cm, 04/16/19 13:56:00 EDT, Height, 107.2, kg, :07:00 EST, Dry Weight Start Date: 05/02/20 Status: Ordered Quantity: 30.0 Unit: tablet Repeat number: 6 medroxyPROGESTERone 10 mg oral tablet 10 mg, 1, tablet, By Mouth, Daily, # 10 tablet, Refills 4, Tot. Refills 4, Maintenance, 06/12/24 12:00:00 AM EST, Route to Pharmacy Electronically, [id number] Start Date: 06/12/24 Stop Date: 06/12/25 Status: Ordered Quantity: 10.0 Unit: tablet Repeat number: 5 scarla- IUD scarla- IUD, Refills 0, Maintenance, 06/26/19 9:59:00 AM EST, Compound Start Date: 06/26/19 Status: Ordered Repeat number: 1 sertraline 50 mg oral tablet 1 tablet = 50 mg, By Mouth, Daily, 0 Refills, Maintenance, 12/10/18 9:23:51 AM EDT Start Date: 12/10/18 Status: Ordered Repeat number: 1 Problem List Condition Confirmation Course Effective Dates Status H ealth Status Informant Focal nodular hyperplasia of liver Confirmed Active Nephrolithiasis Confirmed Active PCOS (polycystic ovarian syndrome) Confirmed Active Social History Social History Type Response Smoking Status Never entered on: 12/10/18 Sex Sex Representation Female (finding) Patient Care team information Care Team Personnel Name: Greer Solano MD Position: [facility] PULLBOAT ENGINEER Member Role: Lifetime PULLBOAT ENGINEER Physician Address: [address] [place] [address] [facility] PULLBOAT ENGINEER [address] Telecom: Care Team Related Persons Name: SHAUN AVALOS Name: ABEBE TAMEZ Name: ANA CRISTINA SOLITARIO Insurance Providers Guarantor name: MONROE SOLITARIO Health Plan Information #: 1 Payer: [facility] PPO Member Number: [id number] Policy Number: NA Group Number: [id number] Health Plan Information #: 2 Payer: [facility] PPO Member Number: [id number] Policy Number: NA Group Number: [id number]
--- OUTSIDE RECORDS SUMMARY | 2024-09-01 20:25 | XMS_ITS | Clinical Summary ---
Author Organization [facility] Address [address] [place] [id number] Phone Care Team Providers Care Job Service Consultant Name Role Phone Michelle Dyer DO Primary Care Provider Unavaila ble Immunizations Immunization Administration Dates Next Due DTaP 5 01/01/2004, 0,06/01/1999,03/18,01/14/1999 HPV, Quadrivalent 01/03/2013,08/10/2011,01/20/20 10 Hep A, ped/adol 07/10/2017 Hep B, ped/adol 06/01/1999,01/14/1999,1998 Hib (PRP-T) 02/17/2000, 9,03/18/1999,01/14 IPV 01/01/2004, 0,03/18/1999,01/14 Influenza, injectable, quadr ivalent, preservative free 07/10/2017 MMR 01/01/2004,11/16/1999 Meningococcal Conj (Menactra) MCV4P 12/28/2015,0 01/19/2010 Pneumococcal Conjugate 06/01/2000,02/17/2000 Tdap 01/19/2010 Varicella 01/19/2010,11/16/1999 Social History Tobacco Use Types Packs/Day Years Used Date Smoking Tobacco: Never Comments:Never Smoker Comments Unknown Sex and Gender Information Value Date Recorded Sex Assigned at Not on file Legal Sex Female 6:39 PM EDT Gender Identity Not on file Sexual Orientation Not on file Last Filed Vital Signs Vital Sign Reading Time Taken Comments Blood Pressure - - Pulse 68 07/10/2017 10:41 AM EST Temperature 36.9 ??C (98.4 ??F) 08/31/2017 1 1:32 AM EST Respiratory Rate - - Oxygen Saturation - - Inhaled Oxygen Concentration - - Weight 79.3 kg (174 lb 12.8 oz) 018 11:32 AM EST Height 168.3 cm (5' 6.25 ) 08/31/2017 1 1:32 AM EST Body Mass Index 28 08/31/2017 11:32 AM EST Plan of Treatment Health Maintenance Due Date Last Done Comments Consider Men B Vaccine (1 of 2 - Bexsero 2-dose series) 2014 Hepatitis A Vaccines (2 of 2 - 2-dose series) 01/07/2018 07/10/2017 DTaP,Tdap,and Td Vaccines (7 - Td or Tdap) 01/20/2020 01/19/2010, 01/01/2004, 06/01/2000, Additional history exists Influenza Vaccines (#1) 2024 07/10/2017 COVID-19 Vaccine ( season) 2024 Hepatitis B Vaccines Completed 06/01/1999, 01/14/1999, 1998 HIB Vaccines Completed 02/17/2000, 07/1998, 03/18/1999, Additional history exists Pneumococcal Vaccine Completed 06/01/2000, 02/17/20 00 IPV Vaccines Completed 01/01/2004, 07/1999, 03/18/1999, Additional history exists MMR Vaccines Completed 01/01/2004, 11/16/1999 Varicella Vaccines Completed 01/19/2010, 11/16/1999 HPV Vaccines Completed 01/03/2013, 03/2012, 01/19/2010 Meningococcal Vaccine Completed 12/28/2015, 010 Men B Vaccine Aged Out No longer elig ible based on patient's age to complete this topic Care Teams Job Service Consultant Relationship Specialty Start Date End Date Michelle Dyer DO PCP - General 11/07/17
[2024-09-01 20:30] VITALS: BP 139/78; PULSE 81; RESP 18; TEMP 36.8; O2SAT 98
== END 2024-09-01 20:31 | disposition home or self-care (01) ==
PROVIDERS: Physician Assistant Medical; Emergency Provider Student in an Organized Health Care Education/Training Program; PCP Student in an Organized Health Care Education/Training Program
DX: R42 Dizziness and giddiness (principal); R51.9 Headache, unspecified; Z03.818 Encounter for observation for suspected exposure to other biological agents ruled out
CPT/HCPCS: 0241U; 70450; 80053; 83735; 84484; 85025; 85610; 85730; 93005; 99283; 99284

== ENCOUNTER → 2024-09-01 13:41 | Outpatient (BNV) | payer OTHER, SELFPAY | PROVIDERS: PCP Student in an Organized Health Care Education/Training Program; Visit Provider Radiology Diagnostic Radiology | DX: R42 Dizziness and giddiness (principal) | CPT/HCPCS: 70450 ==

== ENCOUNTER → 2024-09-01 13:41 | Outpatient (BNV) | payer OTHER, SELFPAY | PROVIDERS: PCP Student in an Organized Health Care Education/Training Program; Visit Provider Internal Medicine Cardiovascular Disease | DX: R00.0 Tachycardia, unspecified (principal) | CPT/HCPCS: 93010 ==